=== PATIENT | male | born 1950 | race Hispanic/Latino ===

== ENCOUNTER 2017-10-20 11:14 | Observation (INO) | payer MEDICARE ==
[2017-10-20 11:58] LABS: #Eosinphils 0.1 thou/uL (0.0-0.7); #Monocytes 0.6 thou/uL (0.11-0.59); #Neutrophils 8.9 thou/uL (1.40-6.50); %Basophils 0.2 % (0.0-1.0); %Eosinophils 1.1 % (0.0-10.0); %Lymphocytes 9.1 % (21.0-51.0); %Monocytes 5.9 % (0.0-10.0); %Neutrophils 83.7 % (42.0-75.0); Hemoglobin 13.5 g/dL (14.0-18.0); Mean Corpuscular HGB CONC 32.8 g/dL (32.0-36.0); Mean Corpuscular Hemoglobin 28.5 pg (27.0-31.0); Mean Platelet Volume 8.9 fL (7.4-10.4); Platelet Count 167 thou/uL (130-400); RBC Distribution Width 12.7 % (11.5-14.5); Red Blood Cell (RBC) Count 4.74 mill/uL (4.70-6.10); White Blood Cell (WBC) Count 10.6 thou/uL (4.8-10.8)
[2017-10-20 12:18] LABS: ALT (SGPT) 22 U/L (8-55); AST (SGOT) 18 U/L (5-34); Albumin 4.1 g/dL (3.4-4.8); Alkaline Phosphatase 88 U/L (40-150); Anion Gap 14 mmol/L (10-20); BUN (Urea Nitrogen) 25 mg/dL (8.4-25.7); Bilirubin, Total 0.7 mg/dL (0.2-1.2); Calc. Creatinine Clearance 0 mL/min (70-130); Calcium 9.6 mg/dL (7.8-10.44); Carbon Dioxide 23 mmol/L (23-31); Chloride 105 mmol/L (98-107); Estimated GFR-MDRD 56; Globulin 2.7 g/dL (2.4-3.5); Glucose 377 mg/dL (80-115); Potassium 4.6 mmol/L (3.5-5.1); Protein, Total 6.8 g/dL (5.8-8.1); Sodium 137 mmol/L (136-145)
[2017-10-20 12:19] LABS: Bilirubin Negative (Negative); Blood, Urine Negative (Negative); Clarity CLEAR (Clear); Glucose, Urine (Dipstick) >=1000 mg/dL (Negative); Leukocyte Negative (Negative); Nitrite Negative (Negative); Protein, Urine (Dipstick) 100 mg/dL (Neg-Trace); Specific Gravity, Urine 1.029 (1.002-1.036); Urobilinogen 0.2 mg/dL (0.2-1.0); pH, Urine 5.5 (5.0-9.0)
[2017-10-20 12:22] LABS: Bacteria/HPF None Seen HPF (None Seen); Hyaline Casts/LPF 4-6 HYALINE CAST LPF (0-3 Hyaline); Pathc Cast-AUWi Flag 0.13 (0-2.49); RBC/HPF 0-3 HPF (0-3); Squamous Epithelial 0-3 HPF (0-3); WBC/HPF 0-3 HPF (0-3)
[2017-10-20 12:30] LABS: Amphetamine Not Detected (NotDetected); Barbiturates Screen Not Detected (NotDetected); Benzodiazepine Screen Not Detected (NotDetected); Cocaine Metabolite Screen Not Detected (NotDetected); Medtox Control Line Valid? VALID (VALID); Medtox Reader # READER 4; Methadone Not Detected (NotDetected); Methamphetamine Not Detected (NotDetected); Opiate Screen Not Detected (NotDetected); Oxycodone Screen Not Detected (NotDetected); Phencyclidine (PCP) Not Detected (NotDetected); THC/Cannabinoid Screen Not Detected (NotDetected); Tricyclic Screen Not Detected (NotDetected)
--- NOTE | 2017-10-20 12:54 | CT ---
CT BRAIN WITHOUT CONTRAST: Technique: Multiple tomograms were obtained through the head without IV enhancement. History: Headache. FINDINGS: Ventricles have normal size and position. No evidence of intracranial mass or hemorrhage. No evidence of acute infarct. No significant white matter abnormality identified. Sinuses and mastoids are clear . IMPRESSION: No acute finding. POS: [facility]
[2017-10-20 13:33] LABS: CKMB 3.5 ng/mL (0-6.6); Troponin I 0.012 ng/mL (< 0.028)
[2017-10-20] MEDS ORDERED: Aspirin 325 MG TAB ONE (15:19)
[2017-10-20] MEDS ORDERED: Ondansetron ODT 4 MG TAB SL PRN (16:28)
[2017-10-20] MEDS ORDERED: Ondansetron HCl/PF 4 MG/2 ML Vial IVP PRN ×2 (16:28→17:20)
[2017-10-20] MEDS ORDERED: Iopamidol 370 76% 100 ML VIAL ONE (16:31)
[2017-10-20] MEDS ORDERED: Clopidogrel Bisulfate 75 MG TAB PO SCH (17:00)
[2017-10-20] MEDS ORDERED: Loratadine 10 MG TAB PO PRN (17:20)
[2017-10-20] MEDS ORDERED: Acetaminophen 325 MG TAB PO PRN (17:20)
[2017-10-20] MEDS ORDERED: Calcium Carbonate 500 MG ChewTAB PO PRN (17:20)
[2017-10-20] MEDS ORDERED: hydrALAZINE 20 MG/ML VIAL SLOW IVP PRN (17:20)
[2017-10-20] MEDS ORDERED: HYDROcodone/Acetaminophen 5/325 mg Tablet PO PRN (17:20)
[2017-10-20] MEDS ORDERED: Dextrose 5% in Water 1,000 ML IV PRN (17:20)
[2017-10-20] MEDS ORDERED: Senokot 8.6 MG TAB PO PRN (17:20)
[2017-10-20] MEDS ORDERED: traMADol HCl 50 MG TAB PO PRN (17:20)
[2017-10-20] MEDS ORDERED: Mag-Al 1200 mg/1200 mg/30 ML UDCUP PO PRN (17:20)
[2017-10-20] MEDS ORDERED: Dextrose 50% Abboject 50 ML SYRINGE SLOW IVP PRN (17:20)
[2017-10-20] MEDS ORDERED: Bisacodyl 5 MG TAB PO PRN (17:20)
[2017-10-20] MEDS ORDERED: Diabetic Tussin 200 MG/10 ML UDCUP PO PRN (17:20)
[2017-10-20] MEDS ORDERED: HumaLOG 300 UNITS/3 ML VIAL SC PRN ×2 (17:20)
[2017-10-20] MEDS ORDERED: Labetalol HCl 100 MG/20 ML VIAL SLOW IVP PRN (17:20)
[2017-10-20] MEDS ORDERED: Nitroglycerin 0.4 MG TAB (25 Tab Bottle) SL PRN (17:20)
[2017-10-20] MEDS ORDERED: Benzonatate 100 MG CAP PO PRN (17:20)
--- NOTE | 2017-10-20 17:26 | HP ---
PRIMARY CARE PHYSICIAN: [facility]. CHIEF COMPLAINT: Headache, blurry vision, lightheadedness, and imbalance. HISTORY OF PRESENT ILLNESS: Mr. Palafox is a pleasant 67-year-old male with past medical histo ry of dyslipidemia, hypertension, diabetes mellitus, and diabetic neuropathy as well as coronary danny ry disease status post stenting in LAD in 2008, who presented to the emergency room with the above-me ntioned complaint. He was actually seen at the primary care physician's office today with these comp laints and was sent to the emergency room with concerns of stroke. History is mainly obtained by the chart review and discussion with the patient and his family. Language barrier is noted as the patie nt is only Chinese speaking. The patient presented to [facility] in [place] for complaints of dizziness and weakness since this morning. The family stated that he has not ate anything since morning. He also complained of neck p ain, headache in the back of the head, and blurred vision. Upon presentation to [facility], he was found to be hypotensive with noted blood pressure 86/55. His repeat blood pressure is 77/55. His ox ygen saturation was 94% on room air and blood sugar was 389. He was found to have unsteady gait and he was sent to [facility] for further evaluation. In the emergency room, upon presentation, his blood pressure was 127/71 with a heart rate of 84, his temperature is at 99.7. His CT scan of the brain was unremarkable. However, on physical examination , he was found to have ataxia with balance problems. For this reason, he is now being admitted to [facility] to rule out acute stroke. He continues to have these symptoms as of now. Denies any musc le weakness. He does report burning pain in both lower extremities. He also reports burning with ur ination for quite a while. He has recently been having some cough without any fevers. He denies any vomiting, nausea, abdominal pain, or diarrhea. He denies any chest pain, shortness of breath, ortho pnea, or PND. He reports compliance with his medications. He denies similar symptoms in the past. PAST MEDICAL HISTORY: 1. Diabetes mellitus. 2. History of kidney stones in 2006. 3. Coronary artery disease in 01/[address] [place] with stenting in LAD. 4. Diverticulitis, 04/2012. 5. Prostatitis, 04/2012. 6. Dyslipidemia. 7. Proteinuria. PAST SURGICAL HISTORY: Stenting of the LAD, 01/2009. FAMILY HISTORY: Father . His kids are alive. Mother is also with unknown history. He has 6 brothers who are relatively healthy. He denies any history of heart attack or stroke runn ing in his family. SOCIAL HISTORY: He is currently employed. He denies any drug, tobacco, or alcohol abuse. He is mar ried. ALLERGIES: No known medication allergies. MEDICATIONS: Include metformin 1000 mg b.i.d., Novolin 70/30 at 30 units subcu b.i.d., atorvastatin 80 mg daily, aspirin 325 mg daily, carvedilol 3.125 mg b.i.d., lisinopril/hydrochlorothiazide 20/12.5 mg daily, terazosin 1 capsule at bedtime, gabapentin 300 mg at bedtime, Januvia which the patient barreto s never picked up, Nasonex daily. REVIEW OF SYSTEMS: The following complete review of systems was negative, unless otherwise mentioned in the HPI or below: Constitutional: Weight loss or gain, ability to conduct usual activities. Skin: Rash, itching. Eyes: Double vision, pain. ENT/Mouth: Nose bleeding, neck stiffness, pain, tenderness. Cardiovascular: Palpitations, dyspnea on exertion, orthopnea. Respiratory: Shortness of breath, wheezing, cough, hemoptysis, fever or night sweats. Gastrointestinal: Poor appetite, abdominal pain, heartburn, nausea, vomiting, constipation, or diarr hea. Genitourinary: Urgency, frequency, dysuria, nocturia. Musculoskeletal: Pain, swelling. Neurologic/Psychiatric: Anxiety, depression. Allergy/Immunologic: Skin rash, bleeding tendency. PHYSICAL EXAMINATION: VITAL SIGNS: Upon presentation, blood pressure 127/71, pulse of 84, respirations 16, saturating 99% on room air, temperature 99.7. GENERAL: In no acute distress; awake, alert, and oriented x3. HEENT: He does have some redness to his face, but otherwise mucous membrane is moist and pink. No o ropharyngeal exudate or erythema. Head is normocephalic and atraumatic. Pupils are equal and reacti ve to light and accommodation. He does have some nystagmus on the left lateral gaze. NECK: Supple without any lymphadenopathy, JVD, or bruit. CHEST: Clear to auscultation without any wheezing, rales, or rhonchi. CARDIOVASCULAR: Rhythm is regular without any murmur, rubs, or gallops. ABDOMEN: Soft, nontender, and nondistended. He does have some suprapubic tenderness. EXTREMITIES: Free of any cyanosis, clubbing, or edema. NEUROLOGIC: Nonfocal except for the mild nystagmus as noticed above. Gait is not checked, but accor ding to the ER physician, he had significant ataxia. SKIN: Free of any rashes or bruises. PSYCHIATRIC: Normal affect. LABORATORY DATA: A 12-lead EKG by my review shows complete left bundle branch block with poor R-wave progression. Otherwise sinus rhythm at 82 beats per minute. CBC is unremarkable. Serum chemistry showed blood sugar of 377, otherwise unremarkable. His creatine kinase is mildly elevated at 231. C ardiac enzymes are unremarkable. Urinalysis showed glucosuria and proteinuria, but no bacteria or le ukocyte esterase, negative nitrites. Urine drug screen is unremarkable. CT scan of the brain by my review has no evidence to suggest acute hemorrhage or infarction. IMPRESSION AND PLAN: 1. Ataxia, blurred vision, as well as headache. All these symptoms are concerning for posterior cer ebellar circulation cerebrovascular accident. He will be admitted to the stroke floor under observat ion status and we will do the cerebrovascular accident workup including stroke team as well as Neurol ogy consultation. He will have MRI of the brain along with echocardiogram and CT angiogram of the va ck to rule out any carotid artery stenosis. He has multiple risk factors for the same. At this time , we will continue with his aspirin as well as statin and give him 1 dose of Plavix until further Earnest rology recommendations are available. 2. Hypotension. Likely due to multiple medications he takes at home. He does report some cough and URI-like symptoms recently. We will check his respiratory viral panel. He reports that he did get vaccinated this year. We will provide him gentle IV fluid hydration. Use antihypertensives except f or beta-blockers with parameters. 3. Dysuria. The patient's urinalysis is not consistent with urinary tract infection. Most likely, he has chronic prostatitis. Continue with his Hytrin for now and start him on gentle IV fluid hydrat ion. At this time, we will treat him empirically with ciprofloxacin 500 mg p.o. b.i.d. He will be g dari Urology followup as an outpatient. 4. Diabetes mellitus. The patient has not been taking his Januvia. At this time, we will resume hi s insulin once the dose was confirmed and continue him on insulin sliding scale with frequent Accu- eks. 5. History of coronary artery disease. At this time, he does not appear to be having any cardiac is sues. We will check his echocardiogram with relation to his possible cerebrovascular accident. Cont inue aspirin and statin as well as beta-mary beth. Restart JIN inhibitors if his blood pressure improv es. 6. Hypertension, currently well controlled and on the lower side actually. We will use his antihype rtensives with caution. 7. History of prostatitis as above. 8. Code status: FULL CODE. Discussed with the patient. DISPOSITION: Mr. Palafox is being admitted to the stroke floor under observation status for CVA rule ou t. Further management will depend upon his clinical course.
[2017-10-20 18:33] VITALS: BMI 30.8
[2017-10-20] MEDS: Insulin NPH/Reg Insulin Hm 300 UNITS/3 ML VIAL SC SCH (19:13)
[2017-10-20] MEDS: Sodium Chloride 0.9% 1,000 ML IV SCH (19:13)
[2017-10-20] MEDS ORDERED: Famotidine/PF 20 mg/2ml Vial SLOW IVP SCH (21:00)
[2017-10-20] MEDS ORDERED: Terazosin HCl 1 MG CAP PO SCH (21:00)
[2017-10-20] MEDS ORDERED: Atorvastatin Calcium 40 MG TAB PO SCH (21:00)
[2017-10-20] MEDS: Gabapentin 300 MG CAP PO SCH ×2 (21:02→21:10)
[2017-10-20] MEDS: Ciprofloxacin 500 MG TAB PO SCH (21:02)
--- NOTE | 2017-10-20 21:43 | CT ---
CTA NECK 10/20/17 CLINICAL HISTORY: Blurred vision. 3D volume rendering performed. FINDINGS: There is scattered mild vascular calcification. There is no high grade focal stenosis involving of ei ther of the visualized common or internal carotid artery. The aortic arch is patent. The imaged aspec ts of each subclavian artery reveal no high grade focal stenosis or occlusion. There is no significan t stenosis of the bilateral vertebral arteries. The imaged vascular artery is patent. Incidental note of coronary artery calcium. There are bilateral pulmonary parenchymal opacities partially visualized within each upper hemithorax. IMPRESSION: Mild scattered atherosclerotic vascular disease without high grade focal stenosis or occlusion of the major arterial system of the neck. POS: [facility]
[2017-10-21 05:54] LABS: #Eosinphils 0.2 thou/uL (0.0-0.7); #Lymphocytes 1.9 thou/uL (1.20-3.40); #Monocytes 0.6 thou/uL (0.11-0.59); #Neutrophils 5.7 thou/uL (1.40-6.50); %Basophils 0.1 % (0.0-1.0); %Eosinophils 2.5 % (0.0-10.0); %Lymphocytes 22.8 % (21.0-51.0); %Neutrophils 67.6 % (42.0-75.0); Hemoglobin 13.8 g/dL (14.0-18.0); Mean Corpuscular HGB CONC 32.1 g/dL (32.0-36.0); Mean Corpuscular Hemoglobin 28.2 pg (27.0-31.0); Mean Corpuscular Volume 87.6 fl (80.0-94.0); Mean Platelet Volume 8.8 fL (7.4-10.4); Platelet Count 166 thou/uL (130-400); RBC Distribution Width 12.7 % (11.5-14.5); Red Blood Cell (RBC) Count 4.91 mill/uL (4.70-6.10); White Blood Cell (WBC) Count 8.5 thou/uL (4.8-10.8)
[2017-10-21] MEDS: Ciprofloxacin 500 MG TAB PO SCH (06:12)
[2017-10-21 06:18] LABS: Anion Gap 13 mmol/L (10-20); BUN (Urea Nitrogen) 23 mg/dL (8.4-25.7); Calc. Creatinine Clearance 94 mL/min (70-130); Calcium 9.5 mg/dL (7.8-10.44); Carbon Dioxide 23 mmol/L (23-31); Cardiac Risk 5.4 (Less than 4.5); Chloride 107 mmol/L (98-107); Estimated GFR-MDRD 80; Glucose 140 mg/dL (80-115); Potassium 4.4 mmol/L (3.5-5.1); Sodium 139 mmol/L (136-145)
[2017-10-21] MEDS ORDERED: Aspirin 325 mg Enteric Coated Tablet PO SCH (09:00)
[2017-10-21] MEDS ORDERED: Enoxaparin Sodium 40 MG/0.4 ML SYRINGE SC SCH (09:00)
[2017-10-21] MEDS ORDERED: Ezetimibe 10 MG TAB PO SCH (09:00)
[2017-10-21] MEDS ORDERED: FLU VACC TS2017-18 (>65YR) 0.5 ML SYRINGE IM ONE (09:00)
[2017-10-21] MEDS ORDERED: Famotidine 20 MG TAB PO SCH (09:00)
[2017-10-21] MEDS ORDERED: Prevnar 13-Val Conj/PF 0.5 ML SYRINGE IM ONE (09:00)
--- NOTE | 2017-10-21 09:23 | MRI ---
MRI OF THE BRAIN WITHOUT AND WITH CONTRAST: Date: 10/21/17 COMPARISON: None. HISTORY: Headache and TIA. TECHNIQUE: Multiplanar, multisequence MR images were obtained of the brain without and with IV contrast. FINDINGS: The brain demonstrates normal signal intensity on all obtained sequences. No restricted diffusion or abnormal enhancement are seen on this examination. There is no evidence of hydrocephalus, intracranial hemorrhage, or extra-axial fluid collection. The expected flow-voids are present. The corpus callosum, pituitary, and craniocervical junction are unre markable. IMPRESSION: No significant intracranial abnormality. POS: [facility]
[2017-10-21] MEDS: Sodium Chloride 0.9% 1,000 ML IV SCH (09:29)
[2017-10-21] MEDS: Insulin NPH/Reg Insulin Hm 300 UNITS/3 ML VIAL SC SCH ×2 (09:30→12:12)
[2017-10-21] MEDS: Gabapentin 300 MG CAP PO SCH (09:30)
[2017-10-21 11:54] VITALS: BP 132/76; TEMP 97.8
--- NOTE | 2017-10-21 12:34 | CON ---
DATE OF CONSULTATION: 10/21/2017 CHIEF COMPLAINT: Headache and balance problems. HISTORY OF PRESENT ILLNESS: History was obtained from the patient using an firing pin gauger and also from the chart. The patient is a very pleasant 67-year-old man with history of sudden ons et of headache and difficulty with balance, which brought him to the hospital. He felt dizzy. He fe lt weak all over the body and he was then doing well and his headache was mainly in the back of his h ead. He never had a headache like this in the past and he was brought to the hospital. At [facility], I believe, he was found to be hypotensive with a blood pressure of 86/55 and blood sugar s of 389 and he had unsteady gait and he was sent to this hospital [facility] for further evaluati on. The patient states that he is back to normal at this time. He never had a stroke in the past. He did not report any weakness, numbness, double vision, or any other form of visual symptoms. PREVIOUS MEDICAL HISTORY: He has diabetes, renal stones in 2006, coronary artery disease with a sten t in left anterior descending artery, diverticulitis, prostatitis, dyslipidemia, and proteinuria. PREVIOUS SURGICAL HISTORY: Stent placement. FAMILY HISTORY: The patient reports his mother had stroke and father as well. No other family history of stroke. SOCIAL HISTORY: He does not smoke or drink. He is . ALLERGIES: No known drug allergies. MEDICATIONS: His medication list was noted. He is on metformin, Novolin, atorvastatin, aspirin, car vedilol, lisinopril/hydrochlorothiazide combination, terazosin, gabapentin, and Januvia. REVIEW OF SYSTEMS: PULMONARY: Normal. CARDIAC: No palpitations or chest pain. SKIN: No rash or itching. EYES: No vision problems such as double vision or loss of vision. MUSCULOSKELETAL: Feeling of weakness. NEUROLOGICAL: Dizziness and headache. LABORATORY RESULTS: His white count is 8.5, hemoglobin 13.8, hematocrit 43.0, platelets 166. His so dium 139, potassium 4.4, chloride 107, bicarbonate 23, BUN 23, creatinine 0.94, glucose 140. I have reviewed his triglycerides, which were elevated at 185, cholesterol 211, LDL cholesterol 135, HDL 39. His MRI of the brain did not show any intracranial abnormality and no evidence of acute stroke on M RI. His CT angiography showed mild scattered atherosclerotic vascular disease without high grade foc al stenosis or occlusion of the major arterial system of the neck. PHYSICAL EXAMINATION: VITAL SIGNS: Blood pressure was 123/65, pulse 79, temperature 97.8, and respiration rate 16. GENERAL APPEARANCE: Well-built and well-nourished man, who is comfortable in his bed. CHEST: Clear vesicular breathing bilaterally. CARDIOVASCULAR: S1 and S2 heard. No murmurs. ABDOMEN: Soft, nontender. No organomegaly noted. NEUROLOGIC: Higher intellectual functions; normal orientation to time, place and person; and appropr iate with his language and conversation. Cranial nerves: Cranial nerves II-XII were normal. Pau l fundus examination. Pupils were reactive to light and equal at 2 mm bilaterally. Normal sensation of face bilaterally. Tongue midline. No atrophy noted. Normal elevation of palate bilaterally. H e had normal sensation to touch bilaterally. Normal hearing to finger rub bilaterally. Motor examin ation: Bulk normal, tone normal. Strength 5/5 in iliopsoas, hamstrings, quadriceps, ankle dorsiflex ion, plantar flexion, deltoid, biceps, triceps, wrist extension/flexion, finger extension and flexion bilaterally. Sensory examination: Normal to touch, pinprick, proprioception, vibration, and temper ature bilaterally. Cerebellar examination: His fosjqq-cf-jftt and ndcx-sb-hrzu were normal. Gait w as not tested. IMPRESSION: The patient was admitted with symptoms of dizziness and feeling generally weak and durin g his history, he did not report to me that he had any type of weakness or numbness or incoordination . His MRI scan is negative for any acute stroke. CT angiography does not show any vascular stenosis . He is still pending echocardiogram of his heart. His neurological examination is normal and he is on aspirin 325 mg per day for stroke prophylaxis. At this time, I do think this event is most likel y correlated with hypotension in association with hyperglycemia and there does not seem to be any kye dence for acute stroke. RECOMMENDATIONS: 1. The patient can be discharged from neurological standpoint. He has clearance from physical thera py and he is able to ambulate. 2. Please continue aspirin for stroke prophylaxis due to his primary risk factors of diabetes, hyper tension, coronary artery disease, and hypercholesterolemia. 3. He can follow up with his general physicians. Please call if you have any further questions.
--- NOTE | 2017-10-21 20:10 | DIS ---
DATE OF ADMISSION: 10/20/2017 DATE OF DISCHARGE: 10/21/2017 CONDITION AT THE TIME OF DISCHARGE: Stable and improved. DISCHARGE DIAGNOSES: 1. Dizziness, hypotension, likely due to medication overdose. 2. CVA ruled out. SECONDARY DISCHARGE DIAGNOSES: 1. Diabetes mellitus type 2. 2. Coronary artery disease. 3. History of renal stones. 4. Prostatitis, chronic. 5. Dyslipidemia. CONSULTATIONS: Include Neurology, Dr. Jones. PROCEDURES DONE IN THE HOSPITAL: Include, 1. MRI of the brain which was unremarkable. There is no evidence of acute hemorrhage, stroke or mas ses. 2. CT angio of the neck, which is unremarkable. There is no stenosis of the major arterial system o f the neck. 3. Transthoracic echocardiogram, the results are pending at this time. DISCHARGE MEDICATIONS: New medications, lisinopril 2.5 mg p.o. daily, ciprofloxacin 500 mg p.o. b.i. d. for 5 more days, fish oil 1000 mg daily. DISCONTINUED MEDICATION: Prinzide. Resume following home medications: Januvia 100 mg p.o. daily, Nasonex daily, gabapentin 300 mg at be dtime, terazosin 2 mg at bedtime, Coreg 3.125 mg p.o. b.i.d., aspirin 325 mg daily, atorvastatin 80 m g daily, metformin 1000 mg p.o. b.i.d., Novolin 30 units subcu b.i.d. PRIMARY CARE PHYSICIAN: [facility]. HISTORY OF PRESENTING ILLNESS: Mr. Palafox is a pleasant 67-year-old male with past medical hi story of diabetes, coronary artery disease as well as dyslipidemia and hypertension, who presented to the emergency room with complaints of headache, blurry vision, lightheadedness and imbalance. He wa s seen at the primary care physician's office earlier and was found to be hypotensive and was sent to the ER. Please see admission history and physical for further details. On presentation, his blood pressure was 127/[address] scan of the brain done in the ER was unremarkable. He was admitted as a CVA rule out. HOSPITAL COURSE: The patient underwent the stroke workup including transthoracic echocardiogram, CT angio of the neck as well as MRI of the brain. Echocardiogram is pending at this time, but he has no evidence of stroke on MRI of the brain. He was seen by neurologist, Dr. Awilda Jones and she agre ed that the symptoms are not because of the stroke, but most likely secondary to low blood pressure. The patient ambulated fine with the physical therapist and had no reoccurrence of his symptoms. His blood pressure medications were held and his blood pressure remained in the 117 to 132 with diastoli c in the 70s range. He was seen and examined prior to discharge and is hemodynamically stable. He is instructed to follo w up with his primary care physician for the results of the echocardiogram. Medication adjustments w ere made. He was taken off of his Prinzide and started just on very low dose of lisinopril given his history of diabetes and coronary artery disease. He will continue the Coreg at previous dose, but b oth the medications are to be held if his blood pressures are below certain level. The patient is in structed with regards to that. He was seen and examined prior to discharge. PHYSICAL EXAMINATION: Include: VITAL SIGNS: Temperature 97.8, blood pressure 132/76, respirations 18, heart rate 79, saturating 95% on room air in no acute distress, awake, alert, oriented x3. CHEST: Clear to auscultation. Rate and rhythm is regular. NEUROLOGIC: Nonfocal. LABORATORY: CBC unremarkable. Serum chemistries are remarkable for blood sugar 140. Cardiac enzyme s negative. His triglycerides are elevated at 185, total cholesterol at 211 with LDL of 135. He was started on fish oil. He is instructed strictly about dietary discretion and exercise. He did have some complaints of dysuria but his urinalysis showed proteinuria and glucosuria without a ny WBCs or bacteria. He has a history of prostatitis and most likely he is having chronic prostatiti s symptoms. Urine was sent to culture, but the results are pending at this time. He was treated emp irically by ciprofloxacin, which he will continue in the outpatient setting. He will benefit from ou tpatient urological followup. He can be referred to Urology by his primary care physician. At this time, he will be discharged back under the care of his PCP with close monitoring of blood pre ssure in the outpatient setting.
[2017-10-21] MEDS ORDERED: Fish Oil 1,000 MG CAP PO SCH (21:00)
== END 2017-10-21 14:00 | disposition home or self-care (01) ==
LOC: ERS 11:14 → 2SE 15:42
PROVIDERS: ADMIT Internal Medicine; ATTEND Internal Medicine
DX: I95.9 Hypotension, unspecified (principal); I25.10 Atherosclerotic heart disease of native coronary artery without angina pectoris; N41.1 Chronic prostatitis; E78.5 Hyperlipidemia, unspecified; I10 Essential (primary) hypertension; E11.40 Type 2 diabetes mellitus with diabetic neuropathy, unspecified; I25.2 Old myocardial infarction; R30.0 Dysuria; Z79.4 Long term (current) use of insulin; Z79.82 Long term (current) use of aspirin; Z79.51 Long term (current) use of inhaled steroids; Z79.899 Other long term (current) drug therapy; Z95.818 Presence of other cardiac implants and grafts; Z87.442 Personal history of urinary calculi
CPT/HCPCS: 70450; 70498; 70553; 80048; 80053; 80061; 80306; 82550; 82553; 82962 ×2; 84484; 85025 ×2; 87631; 93005; 93306; 96361 ×2; 96372; 96374; 97139 ×3; 97530; 99285; G0378; G8978; G8979; G8980; G8987; G8988; G8989; 36415; 36416; 81003; 81015; G8996-GN-CH; G8997-GN-CH; J1650; S0028

== ENCOUNTER 2017-12-24 23:11 | Inpatient (IN) | payer MEDICARE ==
[2017-12-25] MEDS ORDERED: Azithromycin 250 MG TAB ONE (00:10)
[2017-12-25] MEDS ORDERED: Meropenem 1 GM in Sodium Chloride 0.9% 100 ML IVPB SCH (01:00)
[2017-12-25 01:19] LABS: Lactic Acid 0.9 mmol/L (0.5-2.2)
[2017-12-25] MEDS ORDERED: Ondansetron HCl/PF 4 MG/2 ML Vial IVP PRN (04:58)
[2017-12-25] MEDS ORDERED: Ondansetron ODT 4 MG TAB SL PRN (04:58)
[2017-12-25] MEDS ORDERED: HYDROcodone/Acetaminophen 5/325 mg Tablet PO PRN ×2 (04:58)
[2017-12-25] MEDS ORDERED: Acetaminophen 325 MG TAB PO PRN (04:58)
[2017-12-25] MEDS: Sodium Chloride 0.9% 1,000 ML IV SCH ×2 (05:26→17:29)
[2017-12-25 05:42] VITALS: BMI 34.0
[2017-12-25] MEDS ORDERED: Vancomycin HCl 1.5 GM in Sodium Chloride 0.9% 250 ML 300 ML IVPB SCH (06:00)
--- NOTE | 2017-12-25 08:23 | CON ---
DATE OF CONSULTATION: 12/25/2017 Seventy minutes of time was spent performing consultation; of that time greater than 50% was spent wi th the patient and/or in the patient's unit. REASON FOR CONSULTATION: CCU protocol. HISTORY OF PRESENT ILLNESS: Information is obtained by speaking with the patient and by reviewing th e emergency room note in the chart. History and physical from the Hospitalist group was not available for review at time of this dictatio n. The patient is a 67-year-old male who presented to the [facility] Room complaining o f cough, shortness of breath, fever, dysuria, urinary frequency and bruises on his knees falling from a horse two days ago. He was initially slightly hypotensive at that facility, maximum temperature t hat I can see was measured was 99.9. He was admitted for treatment of urinary tract infection. He w as supposed to be in IMCU, but I believe they do not have any beds and he was therefore put in the IC U on overflow status. He is not having difficulty with blood pressure or mentation while in the CCU. PAST MEDICAL HISTORY: 1. Diabetes mellitus. 2. Nephrolithiasis. 3. Coronary artery disease. 4. Myocardial infarction. 5. Diverticulitis. 6. Prostatitis. 7. Hyperlipidemia. 8. Proteinuria. PAST SURGICAL HISTORY: Stenting of the LAD in 2008. FAMILY MEDICAL HISTORY: Remarkable for coronary artery disease. SOCIAL HISTORY: Nonsmoker, does not consume alcohol, does not use illicit drugs. ALLERGIES: None. MEDICATIONS: Prior to admission, Januvia 100 mg daily, gabapentin 100 mg 3 times daily, lisinopril/h ydrochlorothiazide 20/12.5 mg once daily, carvedilol 3.125 mg b.i.d., aspirin 325 mg daily, atorvasta tin 80 mg daily, Novolin 70/30 insulin 30 units twice daily, metformin 1000 mg twice daily. REVIEW OF SYSTEMS: Twelve point review of systems otherwise negative. PHYSICAL EXAMINATION: VITAL SIGNS: Temperature 97.7, pulse 68, blood pressure 130/71, O2 sat 100% on room air. HEENT: Unremarkable. NECK: Without adenopathy, JVD, or bruits. LUNGS: Clear without wheezing or rhonchi. CARDIAC: S1, S2 regular, without murmur. ABDOMEN: Soft, nontender, nondistended. EXTREMITIES: He has a bruise over his left knee. No cyanosis, no edema, no obvious skin lesions oth erwise. LABORATORY DATA: White blood cell count 10.2, hematocrit 39, platelet count 123. Sodium 135, potass ium 4.4, chloride 101, CO2 is 21, BUN 18, creatinine 1.1, glucose 302. Urinalysis showed 21-50 white blood cells. Chest x-ray shows chronically elevated right hemidiaphragm. The abdominal pelvis CT s can interpretation is pending. ASSESSMENT: 1. Urosepsis. 2. Coronary artery disease. 3. Status post fall. PLAN: This patient can be transferred out to the medical unit. He does not have any signs of shock at this time. Continue antibiotic therapy. There are no obvious pulmonary concerns as the right momo phragmatic elevation is old.
[2017-12-25] MEDS: Heparin 5,000 UNITS/ML VIAL SC SCH ×6 (09:06→20:29)
[2017-12-25] MEDS: Famotidine/PF 20 mg/2ml Vial SLOW IVP SCH ×2 (09:06→20:30)
[2017-12-25] MEDS: Meropenem 1 GM in Syringe 20 ML SLOW IVP SCH ×2 (09:12→18:25)
[2017-12-25] MEDS ORDERED: Dextrose 50% Abboject 50 ML SYRINGE SLOW IVP PRN (09:24)
[2017-12-25] MEDS: Albuterol Sulfate 1.25 MG/3 ML NEB NEB SCH ×4 (09:24→18:49)
[2017-12-25] MEDS ORDERED: Dextrose 5% in Water 1,000 ML IV PRN (09:24)
[2017-12-25] MEDS ORDERED: Tamsulosin HCl 0.4 MG CAP PO SCH (09:27)
[2017-12-25] MEDS ORDERED: Oxybutynin 5 MG TAB PO SCH (09:28)
[2017-12-25 09:44] LABS: Anion Gap 11 mmol/L (10-20); BUN (Urea Nitrogen) 15 mg/dL (8.4-25.7); Calc. Creatinine Clearance 109 mL/min (70-130); Calcium 8.6 mg/dL (7.8-10.44); Carbon Dioxide 24 mmol/L (23-31); Chloride 106 mmol/L (98-107); Estimated GFR-MDRD Greater than 90; Glucose 239 mg/dL (80-115); Potassium 4.5 mmol/L (3.5-5.1); Sodium 136 mmol/L (136-145)
[2017-12-25 09:55] LABS: Band 7 % (5-11); Lymphocytes 9 % (21-51); MDiff Complete? YES; Mean Corpuscular HGB CONC 32.8 g/dL (32.0-36.0); Mean Corpuscular Hemoglobin 28.9 pg (27.0-31.0); Mean Corpuscular Volume 88.1 fl (80.0-94.0); Mean Platelet Volume 9.5 fL (7.4-10.4); Monocytes 2 % (0-10); Neutrophil 82 % (42-75); PLT Morphology Comment Appears Decreased; Platelet Count 119 thou/uL (130-400); RBC Distribution Width 13.3 % (11.5-14.5); RBC Morphology Normal; Red Blood Cell (RBC) Count 4.16 mill/uL (4.70-6.10); White Blood Cell (WBC) Count 18.8 thou/uL (4.8-10.8)
[2017-12-25] MEDS: HumaLOG 300 UNITS/3 ML VIAL SC PRN ×3 (11:50→20:29)
--- NOTE | 2017-12-25 12:30 | HP ---
REASON FOR ADMISSION: Sepsis, possible urinary tract infection. HISTORY OF PRESENT ILLNESS: The patient gives history of feeling cold and having urgency of urination. He also had frequency of urination. All the above from Tuesday. 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 In the process, the patient had hurt his left lower extremity with multiple abrasions. He also mentions that the horse bit him on his right upper extremity. The patient initially went to [facility], [place], where he was found to have had fever of 102 and had complained of cough, weakness, and fever. No altered expectoration. No complaints of chest pain or palpitation. He has shortness of breath at present and has wheezing. His initial temperature was also 105.8 at 8:21 p.m. yesterday evening. The patient mentions that he feels that the phlegm is kind of stuck up in his throat. No complaints of any particular weakness in any of the extremities. He is moving all of them. PAST MEDICAL AND SURGICAL HISTORY: 1. History of coronary artery disease with prior STEMI and stenting done to LAD in 01/2009. 2. History of nephrolithiasis in 2006. 3. Diabetes mellitus type 2. 4. History of diverticulitis in 04/2012 5. History of prostatitis,. 6. Dyslipidemia. PERSONAL HISTORY: Does not abuse alcohol or drugs. No history of smoking. Lives with his . FAMILY HISTORY: Mother at the age of 80 years from old age. Father at the age of 26 years and has had some kind of infection of the occiput of his scalp area, which spread. He does not recall the exact diagnosis. CURRENT MEDICATIONS: Please note patient does not recall all his medications, but from his last admission here in October, which he states the medications have not been changed. He is on aspirin 325 mg daily, atorvastatin 80 mg p.o. at bedtime, Coreg 3.125 mg twice daily, fish oil 1000 mg p.o. at bedtime, gabapentin 300 mg p.o. at bedtime, NPH 70/30, 30 units subcu twice daily, lisinopril 2.5 mg daily, metformin 1000 mg twice daily, Januvia 100 mg daily, and terazosin 2 mg p.o. at bedtime. ALLERGIES: No known drug allergies. REVIEW OF SYSTEMS: The following complete review of systems was negative, unless otherwise mentioned in the HPI or below: Constitutional: Weight loss or gain, ability to conduct usual activities. Skin: Rash, itching. Eyes: Double vision, pain. ENT/Mouth: Nose bleeding, neck stiffness, pain, tenderness. Cardiovascular: Palpitations, dyspnea on exertion, orthopnea. Respiratory: Shortness of breath, wheezing, cough, hemoptysis, fever or night sweats. Gastrointestinal: Poor appetite, abdominal pain, heartburn, nausea, vomiting, constipation, or diarrhea. Genitourinary: Urgency, frequency, dysuria, nocturia. Musculoskeletal: Pain, swelling. Neurologic/Psychiatric: Anxiety, depression. Allergy/Immunologic: Skin rash, bleeding tendency. PHYSICAL EXAMINATION: GENERAL: The patient is a 67-year-old male, who is currently not in any acute distress. VITAL SIGNS: Blood pressure 130/64, pulse 84 per minute, respiratory rate 26 per minute, temperature initially was [address] [facility], [place] at 8:00 p.m. on arrival here was 99 degrees, saturating 100% on 2 liters nasal cannula. NECK: Supple, no elevated JVD. HEENT: Extraocular muscles intact. Pupils reacting to light. Oral cavity, mucous membranes are dry. No exudates or congestion. CARDIOVASCULAR: S1 and S2 heard. Regular rhythm. RESPIRATORY: Air entry 1+ bilaterally. Scattered wheezes plus bilaterally. ABDOMEN: Soft, bowel sounds. He has mild tenderness in the left lower quadrant , but no rigidity or guarding. Bowel sounds are heard. EXTREMITIES: No peripheral edema or calf tenderness. Has multiple abrasions over the left leg. The patient has small ecchymosis on the right arm on the medial aspect, which he says where the horse bit but there is no skin break. VASCULAR: Peripheral pulses are 2+ bilateral, no ischemic ulcerations or gangrene. CENTRAL NERVOUS SYSTEM: No gross focal deficits seen. Patient is alert, awake , and oriented well. PSYCHIATRIC: The patient's mood is euthymic. No hallucinations or delusions. LABORATORY AND X-RAY FINDINGS: Chest x-ray done shows likely chronic elevation of right hemidiaphragm, no acute infiltrate. UA shows moderate blood, 15 mg per deciliter of ketones, 21-50 WBCs, rare few bacteria. Leukocyte esterase and nitrite are negative. BNP is 232. First set of cardiac enzymes are negative. Serum bicarbonate was 21, BUN 18, creatinine 1.1. Serum glucose 302. Lactic acid is 1.8. Liver enzymes within normal limits. White count of 10 as jumped up to 18 this morning. H&H 12 and 36, platelet count 119 with 90% neutrophils. CLINICAL IMPRESSION AND PLAN: The patient will be admitted to telemetry. He was initially placed in IMCU and will be shortly downgraded to telemetry. He has been initiated on meropenem and will continue the same for now. He is on normal saline at 100 mL per hour. Sorto cultures have been obtained including blood and urine from the ER. We will follow up on that. His CT abdomen and pelvis, per unofficial report there is no acute abnormality. Due to his increased frequency of urination and urgency, he will be placed on Flomax and Ditropan for now. We will also place him on phenazopyridine for the same and will check postvoid residual. We will continue him on aspirin, albuterol nebulizer, Pepcid twice daily for now. Dr. Pizano for Pulmonology and Critical Care has evaluated the patient already. Code status is FULL. We will continue to closely monitor him on telemetry. [facility]
[2017-12-25] MEDS ORDERED: ISOVUE-370 76%-LOCM 1 ML ONE (13:01)
[2017-12-25] MEDS: Phenazopyridine HCl 97.5 MG TABLET PO SCH ×2 (13:30→17:42)
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
[2017-12-25] MEDS: Ibuprofen 200 MG TAB PO PRN (17:42)
[2017-12-26] MEDS: Ibuprofen 200 MG TAB PO PRN (01:51)
[2017-12-26] MEDS: Meropenem 1 GM in Syringe 20 ML SLOW IVP SCH ×3 (02:08→18:03)
[2017-12-26] MEDS: Sodium Chloride 0.9% 1,000 ML IV SCH (02:17)
[2017-12-26 04:56] LABS: Anion Gap 9 mmol/L (10-20); BUN (Urea Nitrogen) 14 mg/dL (8.4-25.7); Calc. Creatinine Clearance 114 mL/min (70-130); Calcium 8.5 mg/dL (7.8-10.44); Carbon Dioxide 24 mmol/L (23-31); Chloride 105 mmol/L (98-107); Estimated GFR-MDRD Greater than 90; Glucose 185 mg/dL (80-115); Potassium 3.6 mmol/L (3.5-5.1); Sodium 134 mmol/L (136-145)
[2017-12-26 05:15] LABS: #Eosinphils 0.1 thou/uL (0.0-0.7); #Lymphocytes 0.7 thou/uL (1.20-3.40); #Monocytes 1.2 thou/uL (0.11-0.59); #Neutrophils 12.1 thou/uL (1.40-6.50); %Basophils 0.3 % (0.0-1.0); %Eosinophils 0.6 % (0.0-10.0); %Lymphocytes 5.1 % (21.0-51.0); %Monocytes 8.6 % (0.0-10.0); %Neutrophils 85.5 % (42.0-75.0); Hemoglobin 10.7 g/dL (14.0-18.0); Mean Corpuscular HGB CONC 33.2 g/dL (32.0-36.0); Mean Corpuscular Volume 87.4 fl (80.0-94.0); Mean Platelet Volume 8.7 fL (7.4-10.4); Platelet Count 106 thou/uL (130-400); RBC Distribution Width 13.1 % (11.5-14.5); Red Blood Cell (RBC) Count 3.69 mill/uL (4.70-6.10); White Blood Cell (WBC) Count 14.2 thou/uL (4.8-10.8)
[2017-12-26] MEDS: Albuterol Sulfate 1.25 MG/3 ML NEB NEB SCH ×4 (07:05→20:02)
[2017-12-26] MEDS: Oxybutynin 5 MG TAB PO SCH (07:42)
[2017-12-26] MEDS: Phenazopyridine HCl 97.5 MG TABLET PO SCH ×3 (07:42→18:03)
[2017-12-26] MEDS: Tamsulosin HCl 0.4 MG CAP PO SCH (07:43)
[2017-12-26] MEDS: Famotidine/PF 20 mg/2ml Vial SLOW IVP SCH (07:44)
[2017-12-26] MEDS: Heparin 5,000 UNITS/ML VIAL SC SCH ×6 (07:44→21:21)
--- NOTE | 2017-12-26 07:53 | PRG ---
DATE OF SERVICE: 12/26/2017 He is feeling well, has no complaints. PHYSICAL EXAMINATION: VITAL SIGNS: His temperature is 99.2, pulse 73, blood pressure 101/71. Total intake for 24 hours 20 81, output 1450. HEENT: Unremarkable. NECK: No JVD. CHEST: Clear without wheezing. CARDIAC: S1 and S2 regular. ABDOMEN: Soft. EXTREMITIES: Trace edema. LABORATORY DATA: White blood cell count 14, hematocrit 32, platelet count 106. Sodium 134, potassiu m 3.6, chloride 105, CO2 24, BUN 14, creatinine 0.8, glucose 185. ASSESSMENT: 1. Urosepsis. 2. Coronary artery disease. 3. Status post fall. PLAN: He is continuing antimicrobial therapy. He has been transferred out to the telemetry unit, no active pulmonary problems. I will sign off the case. Please recall if further assistance needed.
[2017-12-26] MEDS: HumaLOG 300 UNITS/3 ML VIAL SC PRN ×3 (10:57→21:26)
--- NOTE | 2017-12-26 12:37 | PDOC.PN ---
- Subjective Encounter Start Date: 12/26/17 Encounter Start Time: 07:50 Subjective: no chest pain or palp -: feels better, no sob -: no abd pain or diarrhea - Objective Resuscitation Status: Resuscitation Status FULL:Full Resuscitation MAR Reviewed: Yes Vital Signs & Weight: Vital Signs (12 hours) Temp Pulse Resp Pulse Ox 12/26/17 10:53 98.3 F 12/26/17 10:40 77 19 95 12/26/17 08:00 98.2 F 76 18 95 12/26/17 07:08 98 12/26/17 07:05 76 18 99 12/26/17 07:00 98.2 F 12/26/17 02:00 99.2 F Weight Admit Weight 204 lb 2.369 oz Most Recent Monitor Data Heart Rate from ECG 85 NIBP 132/61 NIBP BP-Mean 100 Respiration from ECG 19 SpO2 95 I&O: 12/25/17 12/26/17 12/27/17 06:59 06:59 06:59 Intake Total 200 2081 390 Output Total 200 1450 250 Balance 0 631 140 Result Diagrams: 12/26/17 04:20 12/26/17 04:20 Additional Labs: Accuchecks 12/26/17 12/26/17 12/25/17 10:57 06:25 20:28 POC Glucose 309 H 169 H 262 H 12/25/17 16:13 POC Glucose 279 H Phys Exam - Physical Examination HEENT: PERRLA, moist MMs Neck: no JVD, supple Respiratory: no wheezing, no rales Cardiovascular: RRR, no significant murmur Gastrointestinal: soft, non-tender, no distention, positive bowel sounds Musculoskeletal: no edema, pulses present Neurological: non-focal, moves all 4 limbs Psychiatric: normal affect, A&O x 3 Dx/Plan (1) Sepsis Code(s): A41.9 - SEPSIS, UNSPECIFIED ORGANISM Status: Acute Qualifiers: Sepsis type: sepsis due to unspecified organism Qualified Code(s): A41.9 - Sepsis, unspecified organism (2) UTI (urinary tract infection) Status: Acute Qualifiers: Urinary tract infection type: acute cystitis Hematuria presence: without hematuria Qualified Code(s): N30.00 - Acute cystitis without hematuria (3) DM type 2 (diabetes mellitus, type 2) Status: Chronic Qualifiers: Diabetes mellitus lead consultant insulin use: without lead consultant use Diabetes mellitus complication status: with unspecified complications Qualified Code(s) : E11.8 - Type 2 diabetes mellitus with unspecified complications (4) Dyslipidemia Code(s): E78.5 - HYPERLIPIDEMIA, UNSPECIFIED Status: Chronic (5) CAD (coronary artery disease) Code(s): I25.10 - ATHSCL HEART DISEASE OF [place] CORONARY ARTERY W/O ANG PCTRS Status: Chronic Qualifiers: Coronary Disease-Associated Artery/Lesion type: [place] artery [place] vs. transplanted heart: [place] heart Associated angina: without angina Qualified Code(s): I25.10 - Atherosclerotic heart disease of [place] coronary artery without angina pectoris (6) Chronic anemia Code(s): D64.9 - ANEMIA, UNSPECIFIED Status: Chronic - Plan on meropenem -: flomax, ditropan and azo -: urine cs is growing ecoli but colony count is low -: january tx to tele -: home meds, levemir, oob to chair and ambulate as tolerated * . Review of Systems - Medications/Allergies Allergies/Adverse Reactions: Allergies Allergy/AdvReac Type Severity Reaction Status Date / Time No Known Drug Allergies Allergy Verified 10/20/17 19:42 Medications: Current Medications Albuterol Sulfate (Albuterol Sulfate) 1.25 mg NEB QID-RT [facility] Last Admin: 12/26/17 10:40 Dose: 1.25 mg Dextrose/Water (Dextrose 50%) 25 gm SLOW IVP PRN PRN PRN Reason: Hypoglycemia Famotidine (Pepcid) 20 mg SLOW IVP Q12HR [facility] Last Admin: 12/26/17 07:44 Dose: 20 mg Glucagon (Glucagon) 1 mg IM PRN PRN PRN Reason: Hypoglycemia Heparin Sodium (Porcine) (Heparin) 5,000 units SC TID [facility] Last Admin: 12/26/17 07:44 Dose: 5,000 units Meropenem 1 gm/ Syringe 20 mls @ 240 mls/hr SLOW IVP 0200,1000,1800 [facility] Last Admin: 12/26/17 10:57 Dose: 20 mls Dextrose/Water (D5w) 1,000 mls @ 0 mls/hr IV .Q0M PRN; As Directed PRN Reason: Hypoglycemia Ibuprofen (Motrin) 400 mg PO Q6H PRN PRN Reason: FEVER/PAIN Last Admin: 12/26/17 01:51 Dose: 400 mg Influenza Virus Vaccine (Fluzone High-Dose Syr) 0.5 ml IM .ONCE ONE Stop: 12/27/17 09:01 Insulin Human Lispro (Humalog) 0 units SC .MODERATE SLIDING SC PRN PRN Reason: Moderate Correctional Scale Last Admin: 12/26/17 10:57 Dose: 8 unit Insulin Human Lispro (Humalog) 0 units SC .BEDTIME SLIDING SC PRN PRN Reason: Bedtime Correctional Scale Last Admin: 12/25/17 20:29 Dose: 3 unit Oxybutynin Chloride (Ditropan) 5 mg PO DAILY [facility] Last Admin: 12/26/17 07:42 Dose: 5 mg Phenazopyridine HCl (Azo Standard) 97.5 mg PO PC [facility] Last Admin: 12/26/17 07:42 Dose: 97.5 mg Pneumococcal 13-Valent Conj Vacc (Prevnar) 0.5 ml IM .ONCE ONE Stop: 12/27/17 09:01 Sodium Chloride (Flush - Normal Saline) 10 ml IVF Q12HR [facility] Last Admin: 12/26/17 07:44 Dose: 10 ml Sodium Chloride (Flush - Normal Saline) 10 ml IVF PRN PRN PRN Reason: Saline Flush Tamsulosin HCl (Flomax) 0.4 mg PO DAILY [facility] Last Admin: 12/26/17 07:43 Dose: 0.4 mg
[2017-12-26] MEDS: metFORMIN 500 MG TAB PO SCH (17:00)
--- NOTE | 2017-12-26 18:24 | EKG ---
Test Reason : Blood Pressure : / mmHG Vent. Rate : 100 BPM Atrial Rate : 100 BPM P-R Int : 158 ms QRS Dur : 102 ms QT Int : 372 ms P-R-T Axes : 046 -67 055 degrees QTc Int : 479 ms Normal sinus rhythm Left anterior fascicular block Anterolateral infarct (cited on or before 27-FEB-2009) Abnormal ECG When compared with ECG of 20-OCT-2017 11:39, Questionable change in initial forces of Lateral leads ST now depressed in Inferior leads ST no longer elevated in Anterior leads Confirmed by KAY WHITFIELD, SLópez ([id number]) on 12/26/2017 6:24:27 PM Referred By: Confirmed By:DR. Astrid VILLANUEVA MD
[2017-12-26] MEDS: Fish Oil 1,000 MG CAP PO SCH (21:20)
[2017-12-26] MEDS: Gabapentin 100 MG CAP PO SCH (21:21)
[2017-12-26] MEDS: Atorvastatin Calcium 40 MG TAB PO SCH (21:21)
[2017-12-26] MEDS: Carvedilol 3.125 MG TAB PO SCH (21:21)
[2017-12-26] MEDS: Famotidine 20 MG TAB PO SCH (21:21)
--- NOTE | 2017-12-26 21:33 | EKG ---
Test Reason : Blood Pressure : / mmHG Vent. Rate : 075 BPM Atrial Rate : 075 BPM P-R Int : 146 ms QRS Dur : 126 ms QT Int : 392 ms P-R-T Axes : 025 -57 119 degrees QTc Int : 437 ms Normal sinus rhythm Left axis deviation Left ventricular hypertrophy with QRS widening and repolarization abnormality Cannot rule out Septal infarct (cited on or before 27-FEB-2009) Possible Lateral infarct (cited on or before 27-FEB-2009) Abnormal ECG When compared with ECG of 25-DEC-2017 09:35, (Unconfirmed) Questionable change in initial forces of Lateral leads ST no longer depressed in Inferior leads Confirmed by Rissa REESE ([id number]) on 12/26/2017 9:32:59 PM Referred By: MARTHA Confirmed By:Rissa REESE
[2017-12-27] MEDS: Meropenem 1 GM in Syringe 20 ML SLOW IVP SCH (02:09)
[2017-12-27] MEDS: Ibuprofen 200 MG TAB PO PRN (05:19)
[2017-12-27] MEDS: Albuterol Sulfate 1.25 MG/3 ML NEB NEB SCH ×4 (06:03→18:33)
[2017-12-27 08:27] LABS: #Eosinphils 0.2 thou/uL (0.0-0.7); #Lymphocytes 0.9 thou/uL (1.20-3.40); #Monocytes 0.8 thou/uL (0.11-0.59); #Neutrophils 6.1 thou/uL (1.40-6.50); %Basophils 0.3 % (0.0-1.0); %Lymphocytes 10.8 % (21.0-51.0); %Neutrophils 75.9 % (42.0-75.0); Hemoglobin 12.1 g/dL (14.0-18.0); Mean Corpuscular HGB CONC 32.7 g/dL (32.0-36.0); Mean Corpuscular Hemoglobin 28.8 pg (27.0-31.0); Mean Platelet Volume 8.9 fL (7.4-10.4); Platelet Count 154 thou/uL (130-400); Red Blood Cell (RBC) Count 4.22 mill/uL (4.70-6.10); White Blood Cell (WBC) Count 8.1 thou/uL (4.8-10.8)
[2017-12-27] MEDS: Tamsulosin HCl 0.4 MG CAP PO SCH (08:43)
[2017-12-27] MEDS: Alogliptin 25 MG TAB PO SCH (08:43)
[2017-12-27] MEDS: metFORMIN 500 MG TAB PO SCH ×2 (08:43→17:55)
[2017-12-27] MEDS: Phenazopyridine HCl 97.5 MG TABLET PO SCH ×3 (08:43→17:55)
[2017-12-27] MEDS: Lisinopril 2.5 MG TAB PO SCH (08:43)
[2017-12-27] MEDS: Carvedilol 3.125 MG TAB PO SCH ×2 (08:43→21:26)
[2017-12-27] MEDS: Oxybutynin 5 MG TAB PO SCH (08:43)
[2017-12-27] MEDS: Heparin 5,000 UNITS/ML VIAL SC SCH ×6 (08:43→21:25)
[2017-12-27] MEDS: Aspirin 325 MG TAB PO SCH (08:43)
[2017-12-27] MEDS: Famotidine 20 MG TAB PO SCH ×2 (08:43→21:26)
[2017-12-27 08:45] LABS: Anion Gap 11 mmol/L (10-20); BUN (Urea Nitrogen) 13 mg/dL (8.4-25.7); Calc. Creatinine Clearance 101 mL/min (70-130); Calcium 9.5 mg/dL (7.8-10.44); Carbon Dioxide 26 mmol/L (23-31); Chloride 103 mmol/L (98-107); Estimated GFR-MDRD 84; Glucose 193 mg/dL (80-115); Potassium 4.3 mmol/L (3.5-5.1); Sodium 136 mmol/L (136-145)
[2017-12-27] MEDS ORDERED: FLU VACC TS2017-18 (>65YR) 0.5 ML SYRINGE IM ONE (09:00)
[2017-12-27] MEDS ORDERED: Prevnar 13-Val Conj/PF 0.5 ML SYRINGE IM ONE (09:00)
[2017-12-27] MEDS: MEROPENEM 1 GM/50 ML 1 GM in Admixture Fee 1 EACH IVPB SCH ×2 (10:20→17:56)
--- NOTE | 2017-12-27 11:19 | PDOC.PN ---
- Subjective Encounter Start Date: 12/27/17 Encounter Start Time: 10:30 Subjective: is feeling better -: no urinary freq or urgency now -: no sob, still has dry cough - Objective Resuscitation Status: Resuscitation Status FULL:Full Resuscitation MAR Reviewed: Yes Vital Signs & Weight: Vital Signs (12 hours) Temp Pulse Resp BP Pulse Ox 12/27/17 10:02 77 14 95 12/27/17 08:43 77 12/27/17 08:00 98.1 F 77 18 148/80 H 96 12/27/17 06:03 79 16 96 12/27/17 04:00 99.7 F H 79 18 127/65 96 12/27/17 00:40 99.2 F 85 20 124/65 95 Weight Admit Weight 204 lb 2.369 oz Most Recent Monitor Data Heart Rate from ECG 93 NIBP 138/68 NIBP BP-Mean 98 Respiration from ECG 22 SpO2 93 I&O: 12/26/17 12/27/17 12/28/17 06:59 06:59 06:59 Intake Total 2081 870 480 Output Total 1450 800 Balance 631 70 480 Result Diagrams: 12/27/17 08:18 12/27/17 08:18 Additional Labs: Accuchecks 12/27/17 12/26/17 12/26/17 04:59 20:55 16:59 POC Glucose 169 H 250 H 219 H Phys Exam - Physical Examination HEENT: PERRLA, moist MMs Neck: no JVD, supple Respiratory: no wheezing, no rales Cardiovascular: RRR, no significant murmur Gastrointestinal: soft, non-tender, no distention, positive bowel sounds Musculoskeletal: no edema, pulses present Neurological: non-focal, moves all 4 limbs Psychiatric: normal affect, A&O x 3 Dx/Plan (1) Sepsis Code(s): A41.9 - SEPSIS, UNSPECIFIED ORGANISM Status: Acute Qualifiers: Sepsis type: sepsis due to unspecified organism Qualified Code(s): A41.9 - Sepsis, unspecified organism (2) UTI (urinary tract infection) Status: Acute Qualifiers: Urinary tract infection type: acute cystitis Hematuria presence: without hematuria Qualified Code(s): N30.00 - Acute cystitis without hematuria (3) DM type 2 (diabetes mellitus, type 2) Status: Chronic Qualifiers: Diabetes mellitus long-term insulin use: without long-term use Diabetes mellitus complication status: with unspecified complications Qualified Code(s) : E11.8 - Type 2 diabetes mellitus with unspecified complications (4) Dyslipidemia Code(s): E78.5 - HYPERLIPIDEMIA, UNSPECIFIED Status: Chronic (5) CAD (coronary artery disease) Code(s): I25.10 - ATHSCL HEART DISEASE OF [place] CORONARY ARTERY W/O ANG PCTRS Status: Chronic Qualifiers: Coronary Disease-Associated Artery/Lesion type: [place] artery [place] vs. transplanted heart: [place] heart Associated angina: without angina Qualified Code(s): I25.10 - Atherosclerotic heart disease of [place] coronary artery without angina pectoris (6) Chronic anemia Code(s): D64.9 - ANEMIA, UNSPECIFIED Status: Chronic - Plan is on meropenem, will switch to oral antibiotics in am -: tmax of 99 now, was 105 in ER on arrrival -: likely source of sepsis is uti -: on flomax with resolving freq and urgency now -: will need outpt urology f/u, echo results pending * . dc plan in am if stable. Has prior h/o [place] with stent per patient. Review of Systems - Medications/Allergies Allergies/Adverse Reactions: Allergies Allergy/AdvReac Type Severity Reaction Status Date / Time No Known Drug Allergies Allergy Verified 10/20/17 19:42 Medications: Current Medications Albuterol Sulfate (Albuterol Sulfate) 1.25 mg NEB QID-RT [facility] Last Admin: 12/27/17 10:02 Dose: 1.25 mg Alogliptin Benzoate (Alogliptin) 25 mg PO DAILY [facility] Last Admin: 12/27/17 08:43 Dose: 25 mg Aspirin (Aspirin) 325 mg PO DAILY [facility] Last Admin: 12/27/17 08:43 Dose: 325 mg Atorvastatin Calcium (Lipitor) 80 mg PO HS [facility] Last Admin: 12/26/17 21:21 Dose: 80 mg Carvedilol (Coreg) 3.125 mg PO BID [facility] Last Admin: 12/27/17 08:43 Dose: 3.125 mg Dextrose/Water (Dextrose 50%) 25 gm SLOW IVP PRN PRN PRN Reason: Hypoglycemia Famotidine (Pepcid) 20 mg PO Q12HR [facility] Last Admin: 12/27/17 08:43 Dose: 20 mg Fish Oil (Fish Oil) 1,000 mg PO HS [facility] Last Admin: 12/26/17 21:20 Dose: 1,000 mg Gabapentin (Neurontin) 300 mg PO HS [facility] Last Admin: 12/26/17 21:21 Dose: 300 mg Glucagon (Glucagon) 1 mg IM PRN PRN PRN Reason: Hypoglycemia Heparin Sodium (Porcine) (Heparin) 5,000 units SC TID [facility] Last Admin: 12/27/17 08:43 Dose: 5,000 units Dextrose/Water (D5w) 1,000 mls @ 0 mls/hr IV .Q0M PRN; As Directed PRN Reason: Hypoglycemia Meropenem 1 gm/ Miscellaneous (Medication) 50 mls @ 100 mls/hr IVPB 0200,1000, 1800 [facility] Last Admin: 12/27/17 10:20 Dose: 50 mls Ibuprofen (Motrin) 400 mg PO Q6H PRN PRN Reason: FEVER/PAIN Last Admin: 12/27/17 05:19 Dose: 400 mg Insulin Human Lispro (Humalog) 0 units SC .MODERATE SLIDING SC PRN PRN Reason: Moderate Correctional Scale Last Admin: 12/26/17 17:02 Dose: 4 unit Insulin Human Lispro (Humalog) 0 units SC .BEDTIME SLIDING SC PRN PRN Reason: Bedtime Correctional Scale Last Admin: 12/26/17 21:26 Dose: 2 unit Lisinopril (Zestril) 2.5 mg PO DAILY [facility] Last Admin: 12/27/17 08:43 Dose: 2.5 mg Metformin HCl (Glucophage) 1,000 mg PO BID-[facility] Last Admin: 12/27/17 08:43 Dose: 1,000 mg Oxybutynin Chloride (Ditropan) 5 mg PO DAILY [facility] Last Admin: 12/27/17 08:43 Dose: 5 mg Phenazopyridine HCl (Azo Standard) 97.5 mg PO PC [facility] Last Admin: 12/27/17 08:43 Dose: 97.5 mg Sodium Chloride (Flush - Normal Saline) 10 ml IVF Q12HR [facility] Last Admin: 12/27/17 08:44 Dose: 10 ml Sodium Chloride (Flush - Normal Saline) 10 ml IVF PRN PRN PRN Reason: Saline Flush Tamsulosin HCl (Flomax) 0.4 mg PO DAILY [facility] Last Admin: 12/27/17 08:43 Dose: 0.4 mg
[2017-12-27] MEDS: HumaLOG 300 UNITS/3 ML VIAL SC PRN (12:40)
[2017-12-27] MEDS: Fish Oil 1,000 MG CAP PO SCH (21:25)
[2017-12-27] MEDS: Gabapentin 100 MG CAP PO SCH (21:25)
[2017-12-27] MEDS: Atorvastatin Calcium 40 MG TAB PO SCH (21:26)
[2017-12-28] MEDS: MEROPENEM 1 GM/50 ML 1 GM in Premix Bag 1 BAG IVPB SCH ×3 (01:51→17:01)
[2017-12-28] MEDS: Ibuprofen 200 MG TAB PO PRN ×2 (01:51→21:38)
[2017-12-28 04:53] LABS: #Eosinphils 0.3 thou/uL (0.0-0.7); #Lymphocytes 0.9 thou/uL (1.20-3.40); #Monocytes 0.9 thou/uL (0.11-0.59); #Neutrophils 4.4 thou/uL (1.40-6.50); %Basophils 0.3 % (0.0-1.0); %Eosinophils 4.6 % (0.0-10.0); %Lymphocytes 13.3 % (21.0-51.0); %Neutrophils 67.9 % (42.0-75.0); Hemoglobin 11.1 g/dL (14.0-18.0); Mean Corpuscular HGB CONC 33.4 g/dL (32.0-36.0); Mean Corpuscular Hemoglobin 29.3 pg (27.0-31.0); Mean Corpuscular Volume 87.7 fl (80.0-94.0); Mean Platelet Volume 8.8 fL (7.4-10.4); Platelet Count 163 thou/uL (130-400); Red Blood Cell (RBC) Count 3.78 mill/uL (4.70-6.10); White Blood Cell (WBC) Count 6.4 thou/uL (4.8-10.8)
[2017-12-28] MEDS: Albuterol Sulfate 1.25 MG/3 ML NEB NEB SCH ×4 (06:37→18:34)
[2017-12-28] MEDS: metFORMIN 500 MG TAB PO SCH ×2 (08:10→17:01)
[2017-12-28] MEDS: Tamsulosin HCl 0.4 MG CAP PO SCH (08:10)
[2017-12-28] MEDS: Aspirin 325 MG TAB PO SCH (08:10)
[2017-12-28] MEDS: Oxybutynin 5 MG TAB PO SCH (08:10)
[2017-12-28] MEDS: Alogliptin 25 MG TAB PO SCH (08:10)
[2017-12-28] MEDS: Famotidine 20 MG TAB PO SCH ×2 (08:10→21:38)
[2017-12-28] MEDS: Lisinopril 2.5 MG TAB PO SCH (08:10)
[2017-12-28] MEDS: Heparin 5,000 UNITS/ML VIAL SC SCH ×6 (08:11→21:37)
[2017-12-28] MEDS: Phenazopyridine HCl 97.5 MG TABLET PO SCH ×3 (08:11→17:00)
[2017-12-28] MEDS: Carvedilol 3.125 MG TAB PO SCH ×2 (08:11→21:39)
[2017-12-28] MEDS: HumaLOG 300 UNITS/3 ML VIAL SC PRN (11:51)
--- NOTE | 2017-12-28 14:28 | PDOC.PN ---
- Subjective Encounter Start Date: 12/28/17 Encounter Start Time: 14:27 Subjective: nsg notes rev, felicita ovn, no new c/o, some albanian but mostlyu -: israeli speaking, illiterate - Objective Resuscitation Status: Resuscitation Status FULL:Full Resuscitation Vital Signs & Weight: Vital Signs (12 hours) Temp Pulse Resp BP Pulse Ox 12/28/17 13:53 69 18 97 12/28/17 10:28 77 18 99 12/28/17 08:00 98.3 F 73 18 130/70 95 12/28/17 06:39 95 12/28/17 06:37 73 16 95 12/28/17 04:00 98.3 F 63 18 114/66 97 12/28/17 03:02 96 Weight Admit Weight 204 lb 2.369 oz Most Recent Monitor Data Heart Rate from ECG 93 NIBP 138/68 NIBP BP-Mean 98 Respiration from ECG 22 SpO2 93 I&O: 12/27/17 12/28/17 12/29/17 06:59 06:59 06:59 Intake Total 870 1200 Output Total 800 Balance 70 1200 Result Diagrams: 12/28/17 04:28 12/27/17 08:18 Additional Labs: Accuchecks 12/28/17 12/28/17 12/27/17 11:35 04:20 20:33 POC Glucose 205 H 183 H 265 H 12/27/17 16:38 POC Glucose 148 H Phys Exam - Physical Examination Constitutional: NAD HEENT: PERRLA, moist MMs, sclera anicteric Neck: no nodes Respiratory: no wheezing, no rales, no rhonchi, clear to auscultation bilateral Cardiovascular: RRR, no significant murmur, no rub Gastrointestinal: soft, non-tender, positive bowel sounds Musculoskeletal: edema present Neurological: moves all 4 limbs Dx/Plan - Plan 67M initially p/w sepsis and UTI sepsis * resolved UTI, multi drug resistant * currently on merrem TID day 4 of iv abx * will change to once a day ertapenem for 6 more days * apprec case mgmt c/s for outpt iv abx diet: as shanique activity: as shanique dvt ppx Review of Systems - Medications/Allergies Allergies/Adverse Reactions: Allergies Allergy/AdvReac Type Severity Reaction Status Date / Time No Known Drug Allergies Allergy Verified 10/20/17 19:42 Medications: Current Medications Albuterol Sulfate (Albuterol Sulfate) 1.25 mg NEB QID-RT [facility] Last Admin: 12/28/17 13:53 Dose: 1.25 mg Alogliptin Benzoate (Alogliptin) 25 mg PO DAILY [facility] Last Admin: 12/28/17 08:10 Dose: 25 mg Aspirin (Aspirin) 325 mg PO DAILY [facility] Last Admin: 12/28/17 08:10 Dose: 325 mg Atorvastatin Calcium (Lipitor) 80 mg PO [facility] Last Admin: 12/27/17 21:26 Dose: 80 mg Carvedilol (Coreg) 3.125 mg PO BID [facility] Last Admin: 12/28/17 08:11 Dose: 3.125 mg Dextrose/Water (Dextrose 50%) 25 gm SLOW IVP PRN PRN PRN Reason: Hypoglycemia Famotidine (Pepcid) 20 mg PO Q12HR [facility] Last Admin: 12/28/17 08:10 Dose: 20 mg Fish Oil (Fish Oil) 1,000 mg PO [facility] Last Admin: 12/27/17 21:25 Dose: 1,000 mg Gabapentin (Neurontin) 300 mg PO [facility] Last Admin: 12/27/17 21:25 Dose: 300 mg Glucagon (Glucagon) 1 mg IM PRN PRN PRN Reason: Hypoglycemia Heparin Sodium (Porcine) (Heparin) 5,000 units SC TID [facility] Last Admin: 12/28/17 14:12 Dose: 5,000 units Dextrose/Water (D5w) 1,000 mls @ 0 mls/hr IV .Q0M PRN; As Directed PRN Reason: Hypoglycemia Meropenem 1 gm/ Device 50 mls @ 100 mls/hr IVPB 0200,1000,1800 [facility] Last Admin: 12/28/17 09:50 Dose: 50 mls Ibuprofen (Motrin) 400 mg PO Q6H PRN PRN Reason: FEVER/PAIN Last Admin: 12/28/17 01:51 Dose: 400 mg Insulin Human Lispro (Humalog) 0 units SC .MODERATE SLIDING SC PRN PRN Reason: Moderate Correctional Scale Last Admin: 12/28/17 11:51 Dose: 4 unit Insulin Human Lispro (Humalog) 0 units SC .BEDTIME SLIDING SC PRN PRN Reason: Bedtime Correctional Scale Last Admin: 12/26/17 21:26 Dose: 2 unit Lisinopril (Zestril) 2.5 mg PO DAILY [facility] Last Admin: 12/28/17 08:10 Dose: 2.5 mg Metformin HCl (Glucophage) 1,000 mg PO BID[facility] Last Admin: 12/28/17 08:10 Dose: 1,000 mg Oxybutynin Chloride (Ditropan) 5 mg PO DAILY [facility] Last Admin: 12/28/17 08:10 Dose: 5 mg Phenazopyridine HCl (Azo Standard) 97.5 mg PO PC [facility] Last Admin: 12/28/17 14:12 Dose: 97.5 mg Sodium Chloride (Flush - Normal Saline) 10 ml IVF Q12HR [facility] Last Admin: 12/28/17 08:11 Dose: 10 ml Sodium Chloride (Flush - Normal Saline) 10 ml IVF PRN PRN PRN Reason: Saline Flush Tamsulosin HCl (Flomax) 0.4 mg PO DAILY [facility] Last Admin: 12/28/17 08:10 Dose: 0.4 mg
[2017-12-28] MEDS: Gabapentin 100 MG CAP PO SCH (21:37)
[2017-12-28] MEDS: Atorvastatin Calcium 40 MG TAB PO SCH (21:38)
[2017-12-28] MEDS: Fish Oil 1,000 MG CAP PO SCH (21:38)
[2017-12-29] MEDS: MEROPENEM 1 GM/50 ML 1 GM in Premix Bag 1 BAG IVPB SCH ×3 (01:59→17:04)
[2017-12-29 05:09] LABS: Band 2 % (5-11); Eosinophils 3 % (0-10); Hemoglobin 11.6 g/dL (14.0-18.0); Lymphocytes 11 % (21-51); MDiff Complete? YES; Mean Corpuscular Hemoglobin 29.1 pg (27.0-31.0); Mean Corpuscular Volume 85.6 fl (80.0-94.0); Mean Platelet Volume 8.2 fL (7.4-10.4); Monocytes 15 % (0-10); Neutrophil 69 % (42-75); Platelet Count 178 thou/uL (130-400); RBC Distribution Width 12.9 % (11.5-14.5); Red Blood Cell (RBC) Count 3.97 mill/uL (4.70-6.10); White Blood Cell (WBC) Count 8.7 thou/uL (4.8-10.8)
[2017-12-29] MEDS: Albuterol Sulfate 1.25 MG/3 ML NEB NEB SCH ×4 (07:57→18:54)
[2017-12-29] MEDS: metFORMIN 500 MG TAB PO SCH ×2 (08:15→17:04)
[2017-12-29] MEDS: Lisinopril 2.5 MG TAB PO SCH (08:15)
[2017-12-29] MEDS: Carvedilol 3.125 MG TAB PO SCH ×2 (08:15→21:02)
[2017-12-29] MEDS: Tamsulosin HCl 0.4 MG CAP PO SCH (08:15)
[2017-12-29] MEDS: Alogliptin 25 MG TAB PO SCH (08:15)
[2017-12-29] MEDS: Phenazopyridine HCl 97.5 MG TABLET PO SCH ×3 (08:15→17:04)
[2017-12-29] MEDS: Aspirin 325 MG TAB PO SCH (08:15)
[2017-12-29] MEDS: Oxybutynin 5 MG TAB PO SCH (08:16)
[2017-12-29] MEDS: Heparin 5,000 UNITS/ML VIAL SC SCH ×6 (08:16→21:02)
[2017-12-29] MEDS: Famotidine 20 MG TAB PO SCH ×2 (08:16→21:03)
[2017-12-29] MEDS: HumaLOG 300 UNITS/3 ML VIAL SC PRN (11:26)
--- NOTE | 2017-12-29 15:49 | PDOC.PN ---
- Subjective Encounter Start Date: 12/29/17 Encounter Start Time: 17:00 Subjective: nsg notes rev, felicita ovn, no new c/o - Objective Resuscitation Status: Resuscitation Status FULL:Full Resuscitation Vital Signs & Weight: Vital Signs (12 hours) Temp Pulse Resp BP BP Pulse Ox 12/29/17 14:09 73 16 97 12/29/17 10:35 76 18 94 L 12/29/17 08:15 78 133/75 12/29/17 08:00 98.3 F 78 18 135/75 96 12/29/17 07:57 78 18 96 Weight Admit Weight 204 lb 2.369 oz Most Recent Monitor Data Heart Rate from ECG 93 NIBP 138/68 NIBP BP-Mean 98 Respiration from ECG 22 SpO2 93 I&O: 12/28/17 12/29/17 12/30/17 06:59 06:59 06:59 Intake Total 1200 Balance 1200 Result Diagrams: 12/30/17 03:59 12/27/17 08:18 Additional Labs: Accuchecks 12/29/17 12/29/17 12/28/17 11:12 05:15 20:36 POC Glucose 243 H 146 H 198 H 12/28/17 16:53 POC Glucose 145 H Phys Exam - Physical Examination Constitutional: NAD HEENT: PERRLA, moist MMs, sclera anicteric Respiratory: no wheezing, no rales, no rhonchi Cardiovascular: RRR Gastrointestinal: soft Dx/Plan - Plan * 67M initially p/w sepsis and UTI sepsis * resolved UTI, multi drug resistant * will change to once a day ertapenem for 5 more days * apprec case mgmt c/s for outpt iv abx * pending availability of IV abx * c/s ID for o/p IV abx mgmt diet: as shanique activity: as shanique dvt ppx Review of Systems - Medications/Allergies Allergies/Adverse Reactions: Allergies Allergy/AdvReac Type Severity Reaction Status Date / Time No Known Drug Allergies Allergy Verified 10/20/17 19:42 Medications: Current Medications Albuterol Sulfate (Albuterol Sulfate) 1.25 mg NEB QID-RT [facility] Last Admin: 12/29/17 14:09 Dose: 1.25 mg Alogliptin Benzoate (Alogliptin) 25 mg PO DAILY [facility] Last Admin: 12/29/17 08:15 Dose: 25 mg Aspirin (Aspirin) 325 mg PO DAILY [facility] Last Admin: 12/29/17 08:15 Dose: 325 mg Atorvastatin Calcium (Lipitor) 80 mg PO HS [facility] Last Admin: 12/28/17 21:38 Dose: 80 mg Carvedilol (Coreg) 3.125 mg PO BID [facility] Last Admin: 12/29/17 08:15 Dose: 3.125 mg Dextrose/Water (Dextrose 50%) 25 gm SLOW IVP PRN PRN PRN Reason: Hypoglycemia Famotidine (Pepcid) 20 mg PO Q12HR [facility] Last Admin: 12/29/17 08:16 Dose: 20 mg Fish Oil (Fish Oil) 1,000 mg PO HS [facility] Last Admin: 12/28/17 21:38 Dose: 1,000 mg Gabapentin (Neurontin) 300 mg PO [facility] Last Admin: 12/28/17 21:37 Dose: 300 mg Glucagon (Glucagon) 1 mg IM PRN PRN PRN Reason: Hypoglycemia Heparin Sodium (Porcine) (Heparin) 5,000 units SC TID [facility] Last Admin: 12/29/17 08:16 Dose: 5,000 units Dextrose/Water (D5w) 1,000 mls @ 0 mls/hr IV .Q0M PRN; As Directed PRN Reason: Hypoglycemia Meropenem 1 gm/ Device 50 mls @ 100 mls/hr IVPB 0200,1000,1800 [facility] Last Admin: 12/29/17 10:22 Dose: 50 mls Ibuprofen (Motrin) 400 mg PO Q6H PRN PRN Reason: FEVER/PAIN Last Admin: 12/28/17 21:38 Dose: 400 mg Insulin Human Lispro (Humalog) 0 units SC .MODERATE SLIDING SC PRN PRN Reason: Moderate Correctional Scale Last Admin: 12/29/17 11:26 Dose: 4 unit Insulin Human Lispro (Humalog) 0 units SC .BEDTIME SLIDING SC PRN PRN Reason: Bedtime Correctional Scale Last Admin: 12/26/17 21:26 Dose: 2 unit Lisinopril (Zestril) 2.5 mg PO DAILY [facility] Last Admin: 12/29/17 08:15 Dose: 2.5 mg Metformin HCl (Glucophage) 1,000 mg PO BID[facility] Last Admin: 12/29/17 08:15 Dose: 1,000 mg Oxybutynin Chloride (Ditropan) 5 mg PO DAILY [facility] Last Admin: 12/29/17 08:16 Dose: 5 mg Phenazopyridine HCl (Azo Standard) 97.5 mg PO PC [facility] Last Admin: 12/29/17 11:26 Dose: 97.5 mg Sodium Chloride (Flush - Normal Saline) 10 ml IVF Q12HR [facility] Last Admin: 12/29/17 10:22 Dose: 10 ml Sodium Chloride (Flush - Normal Saline) 10 ml IVF PRN PRN PRN Reason: Saline Flush Tamsulosin HCl (Flomax) 0.4 mg PO DAILY [facility] Last Admin: 12/29/17 08:15 Dose: 0.4 mg
[2017-12-29] MEDS: Gabapentin 100 MG CAP PO SCH (21:01)
[2017-12-29] MEDS: Ibuprofen 200 MG TAB PO PRN (21:02)
[2017-12-29] MEDS: Fish Oil 1,000 MG CAP PO SCH (21:02)
[2017-12-29] MEDS: Atorvastatin Calcium 40 MG TAB PO SCH (21:02)
[2017-12-30] MEDS: MEROPENEM 1 GM/50 ML 1 GM in Premix Bag 1 BAG IVPB SCH ×2 (01:57→09:45)
[2017-12-30 04:38] LABS: #Basophils 0.1 thou/uL (0.0-0.2); #Eosinphils 0.6 thou/uL (0.0-0.7); #Lymphocytes 1.7 thou/uL (1.20-3.40); #Monocytes 1.3 thou/uL (0.11-0.59); #Neutrophils 6.4 thou/uL (1.40-6.50); %Eosinophils 5.6 % (0.0-10.0); %Lymphocytes 17.1 % (21.0-51.0); %Monocytes 12.8 % (0.0-10.0); %Neutrophils 63.5 % (42.0-75.0); Mean Corpuscular HGB CONC 34.1 g/dL (32.0-36.0); Mean Corpuscular Hemoglobin 29.1 pg (27.0-31.0); Mean Corpuscular Volume 85.4 fl (80.0-94.0); Platelet Count 205 thou/uL (130-400); Red Blood Cell (RBC) Count 4.11 mill/uL (4.70-6.10)
[2017-12-30] MEDS: Albuterol Sulfate 1.25 MG/3 ML NEB NEB SCH ×3 (07:02→15:08)
[2017-12-30 07:39] VITALS: BP 125/77; TEMP 98.1
[2017-12-30] MEDS: metFORMIN 500 MG TAB PO SCH (08:28)
[2017-12-30] MEDS: Tamsulosin HCl 0.4 MG CAP PO SCH (08:28)
[2017-12-30] MEDS: Famotidine 20 MG TAB PO SCH (08:28)
[2017-12-30] MEDS: Carvedilol 3.125 MG TAB PO SCH (08:28)
[2017-12-30] MEDS: Alogliptin 25 MG TAB PO SCH (08:28)
[2017-12-30] MEDS: Oxybutynin 5 MG TAB PO SCH (08:28)
[2017-12-30] MEDS: Aspirin 325 MG TAB PO SCH (08:28)
[2017-12-30] MEDS: Heparin 5,000 UNITS/ML VIAL SC SCH ×2 (08:28)
[2017-12-30] MEDS: Phenazopyridine HCl 97.5 MG TABLET PO SCH ×2 (08:28→12:14)
[2017-12-30] MEDS: Lisinopril 2.5 MG TAB PO SCH (08:30)
[2017-12-30] MEDS: HumaLOG 300 UNITS/3 ML VIAL SC PRN (12:14)
== END 2017-12-30 15:30 | disposition home or self-care (01) | DRG 872 ==
LOC: ERS 23:11 → CCU 12-25 04:57 → T4-A 12-26 20:51
PROVIDERS: ADMIT Internal Medicine; ATTEND Internal Medicine
DX: A41.9 Sepsis, unspecified organism (principal); I95.9 Hypotension, unspecified; N30.00 Acute cystitis without hematuria; E78.5 Hyperlipidemia, unspecified; E11.9 Type 2 diabetes mellitus without complications; D64.9 Anemia, unspecified; Z16.24 Resistance to multiple antibiotics; R35.0 Frequency of micturition; R39.15 Urgency of urination; S80.02XA Contusion of left knee, initial encounter; V80.010A Animal-rider injured by fall from or being thrown from horse in noncollision accident, initial encounter; I25.10 Atherosclerotic heart disease of native coronary artery without angina pectoris; I25.2 Old myocardial infarction; Z23 Encounter for immunization
CPT/HCPCS: 36415; 36416; 74177; 80048; 83605; 85025; 90471; 90670; 90682; 93005; 93010; 93306; 94640; 94760; 96361; 96365; A4216; G0008; G0009; J1644; J2185; J3370; J7050; Q2036; S0028

== ENCOUNTER 2018-05-17 14:38 | Emergency (ER) | payer MEDICARE ==
[2018-05-17 15:17] LABS: Hemoglobin 13.1 g/dL (14.0-18.0); Mean Corpuscular HGB CONC 34.7 g/dL (32.0-36.0); Mean Corpuscular Hemoglobin 29.2 pg (27.0-31.0); Mean Corpuscular Volume 84.1 fL (78.0-98.0); Mean Platelet Volume 8.6 fL (7.4-10.4); Platelet Count 174 thou/uL (130-400); RBC Distribution Width 12.7 % (11.5-14.5); Red Blood Cell (RBC) Count 4.49 mill/uL (4.70-6.10); White Blood Cell (WBC) Count 18.4 thou/uL (4.8-10.8)
[2018-05-17 15:35] LABS: Band 9 % (5-11); Lymphocytes 1 % (21-51); MDiff Complete? YES; Monocytes 4 % (0-10); Neutrophil 86 % (42-75); PLT Morphology Comment Appears Adequate
[2018-05-17 15:36] LABS: ALT (SGPT) 19 U/L (8-55); AST (SGOT) 21 U/L (5-34); Albumin 3.8 g/dL (3.4-4.8); Alkaline Phosphatase 88 U/L (40-150); Anion Gap 13 mmol/L (10-20); BUN (Urea Nitrogen) 23 mg/dL (8.4-25.7); Bilirubin, Total 0.9 mg/dL (0.2-1.2); Calc. Creatinine Clearance 0 mL/min (70-130); Calcium 9.2 mg/dL (7.8-10.44); Carbon Dioxide 24 mmol/L (23-31); Chloride 101 mmol/L (98-107); Estimated GFR-MDRD 75; Globulin 3.3 g/dL (2.4-3.5); Glucose 93 mg/dL (80-115); Lipase 7 U/L (8-78); Potassium 3.9 mmol/L (3.5-5.1); Protein, Total 7.1 g/dL (5.8-8.1); Sodium 134 mmol/L (136-145)
[2018-05-17 15:37] LABS: CKMB 1.1 ng/mL (0-6.6); Troponin I 0.018 ng/mL (< 0.028)
[2018-05-17 17:17] LABS: Bilirubin Negative (Negative); Blood, Urine Moderate (Negative); Clarity CLOUDY (Clear); Glucose, Urine (Dipstick) Negative (Negative); Leukocyte Moderate (Negative); Nitrite Positive (Negative); Protein, Urine (Dipstick) 100 mg/dL (Neg-Trace); Specific Gravity, Urine 1.023 (1.002-1.036); pH, Urine 6.5 (5.0-9.0)
[2018-05-17 17:18] LABS: Bacteria/HPF 4+ HPF (None Seen); Hyaline Casts/LPF 4-6 HYALINE CAST LPF (0-3 Hyaline); Squamous Epithelial 0-3 HPF (0-3)
--- NOTE | 2018-05-17 19:21 | RAD ---
ACUTE ABDOMINAL SERIES INCLUDING TWO VIEW ABDOMEN AND FRONTAL VIEW CHEST: 05/17/18 INDICATION: Chest and abdominal pain. FINDINGS: There is elevation of the right hemidiaphragm with adjacent atelectasis. The cardiac silhouette is en larged. There is vascular calcification. No free air is visualized beneath the hemidiaphragms. Bowel gas pattern is nonobstructed. There is osseous degenerative change. IMPRESSION: 1. Elevated right hemidiaphragm with right basilar atelectasis. 2. Nonobstructive bowel gas pattern. 3. No free air. POS: [facility]
[2018-05-17] MEDS ORDERED: cefTRIAXone\\ROCEPHIN 2 GM VIAL ONE (19:22)
[2018-05-17] MEDS ORDERED: Bisacodyl 10 MG SUPP ONE (19:22)
== END 2018-05-17 20:42 | disposition home or self-care (01) ==
LOC: ERS 14:38
DX: K59.00 Constipation, unspecified (principal); N39.0 Urinary tract infection, site not specified; E86.0 Dehydration; E11.9 Type 2 diabetes mellitus without complications; E78.5 Hyperlipidemia, unspecified; I25.2 Old myocardial infarction; I25.10 Atherosclerotic heart disease of native coronary artery without angina pectoris; I10 Essential (primary) hypertension; Z79.4 Long term (current) use of insulin; Z79.899 Other long term (current) drug therapy; Z79.82 Long term (current) use of aspirin
CPT/HCPCS: 36415; 51701; 74022; 80053; 81003; 81015; 82553; 83605; 83690; 84484; 85025; 87040; 87077; 87086; 87186; 93005; 96365; J0696

== ENCOUNTER 2020-01-25 08:12 | Emergency (ER) | payer MEDICARE ==
[2020-01-25] MEDS ORDERED: Ondansetron PF 4 MG/2 ML Vial ONE (09:09)
[2020-01-25] MEDS ORDERED: Morphine 4 MG/ML VIAL ONE (09:09)
[2020-01-25 09:26] LABS: #Eosinphils 0.5 thou/uL (0.0-0.7); #Lymphocytes 1.3 thou/uL (1.20-3.40); #Monocytes 0.8 thou/uL (0.11-0.59); #Neutrophils 6.1 thou/uL (1.40-6.50); %Basophils 0.3 % (0.0-1.0); %Eosinophils 6.2 % (0.0-10.0); %Lymphocytes 15.4 % (21.0-51.0); %Monocytes 8.7 % (0.0-10.0); %Neutrophils 69.4 % (42.0-75.0); Mean Corpuscular HGB CONC 33.1 g/dL (32.0-36.0); Mean Corpuscular Hemoglobin 28.5 pg (27.0-31.0); Mean Corpuscular Volume 86.1 fL (78.0-98.0); Mean Platelet Volume 8.6 fL (7.4-10.4); Platelet Count 200 thou/uL (130-400); RBC Distribution Width 13.2 % (11.5-14.5); Red Blood Cell (RBC) Count 4.21 mill/uL (4.70-6.10); White Blood Cell (WBC) Count 8.7 thou/uL (4.8-10.8)
[2020-01-25 09:45] LABS: ALT (SGPT) 17 U/L (8-55); AST (SGOT) 15 U/L (5-34); Albumin 3.5 g/dL (3.4-4.8); Alkaline Phosphatase 71 U/L (40-110); Anion Gap 11 mmol/L (10-20); BUN (Urea Nitrogen) 14 mg/dL (8.4-25.7); Bilirubin, Total 0.5 mg/dL (0.2-1.2); Calc. Creatinine Clearance 0 mL/min (70-130); Calcium 8.9 mg/dL (7.8-10.44); Carbon Dioxide 27 mmol/L (23-31); Chloride 102 mmol/L (98-107); Estimated GFR-MDRD Greater than 90; Globulin 2.6 g/dL (2.4-3.5); Glucose 202 mg/dL (83-110); Lipase 9 U/L (8-78); Potassium 3.6 mmol/L (3.5-5.1); Protein, Total 6.1 g/dL (5.8-8.1); Sodium 136 mmol/L (136-145)
[2020-01-25] MEDS ORDERED: Iopamidol-370 76% 500 ML 1 ML ONE (09:55)
--- NOTE | 2020-01-25 11:37 | CT ---
ABDOMEN AND PELVIC CT SCAN WITH IV CONTRAST: HISTORY: Abdominal pain, constipation. COMPARISON: Noncontrast study 01/17/2020. FINDINGS: Minimal stable linear and pleural-based parenchymal changes in the right chest. Prominent 3-vessel c oronary artery calcific disease. The liver, gallbladder, and pancreas appear unremarkable. Stable h ypodensity in the spleen. No renal calculi or acute obstruction. Evidence for bilateral renal st able cysts and hypodensities. Again noted in the pelvis is some marked colonic wall thickness which is better defined on today's study given that today's study is a postcontrast study with significant lumen diameter narrowing. Marked perirectal fat stranding with several enlarged perirectal lymph nod es up to approximately 0.9 cm in the right pelvic sidewall region. There is fat stranding extending into the posterior perirenal retroperitoneal regions bilaterally. No CT evidence for acute appendici tis. No evidence of associated abscess. IMPRESSION: Little change in the appearance of the pelvis when compared to the prior study with marked perirectal fat stranding with some enlarged lymph nodes, but no evidence for an identifiable drainable abscess. The marked colonic wall thickness is somewhat better demonstrated on this postcontrast study than o n the prior study with marked lumen diameter narrowing. 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 Further evaluation with endoscopy is recommende d. Findings were discussed with Dr. Santizo in the emergency room at 10:00 a.m. TOMMY AVILA
[2020-01-25] MEDS ORDERED: HYDROcodone/Acetaminophen 10/325 mg Tablet ONE (12:59)
== END 2020-01-25 13:00 | disposition home or self-care (01) ==
LOC: ERS 08:12
DX: K62.89 Other specified diseases of anus and rectum (principal); E11.9 Type 2 diabetes mellitus without complications; E78.5 Hyperlipidemia, unspecified; I25.10 Atherosclerotic heart disease of native coronary artery without angina pectoris; I10 Essential (primary) hypertension; I25.2 Old myocardial infarction; Z79.4 Long term (current) use of insulin; Z79.899 Other long term (current) drug therapy
CPT/HCPCS: 74177; 80053; 83690; 85025; 96374; 96375; 99284; J2270; J2405; 36415; Q9967

== ENCOUNTER 2020-01-30 10:18 | Inpatient (IN) | payer MEDICARE ==
[2020-01-30 11:01] LABS: Bilirubin Negative (Negative); Blood, Urine Negative (Negative); Clarity Clear (Clear); Glucose, Urine (Dipstick) Greater than 1000 mg/dL (Negative); Leukocyte Negative Leu/uL (Negative); Nitrite Negative (Negative); Protein, Urine (Dipstick) 20 mg/dL (Neg-Trace); Urobilinogen Normal mg/dL (Less than 2)
[2020-01-30 11:25] LABS: #Eosinphils 0.3 thou/uL (0.0-0.7); #Lymphocytes 0.9 thou/uL (1.20-3.40); #Monocytes 0.7 thou/uL (0.11-0.59); #Neutrophils 5.8 thou/uL (1.40-6.50); %Basophils 0.2 % (0.0-1.0); %Eosinophils 3.4 % (0.0-10.0); %Lymphocytes 11.8 % (21.0-51.0); %Monocytes 8.8 % (0.0-10.0); %Neutrophils 75.8 % (42.0-75.0); Hemoglobin 12.5 g/dL (14.0-18.0); Mean Corpuscular HGB CONC 32.8 g/dL (32.0-36.0); Mean Corpuscular Hemoglobin 28.6 pg (27.0-31.0); Mean Corpuscular Volume 87.4 fL (78.0-98.0); Mean Platelet Volume 8.5 fL (7.4-10.4); Platelet Count 198 thou/uL (130-400); RBC Distribution Width 13.2 % (11.5-14.5); Red Blood Cell (RBC) Count 4.39 mill/uL (4.70-6.10); White Blood Cell (WBC) Count 7.7 thou/uL (4.8-10.8)
[2020-01-30 11:51] LABS: ALT (SGPT) 21 U/L (8-55); AST (SGOT) 30 U/L (5-34); Albumin 3.7 g/dL (3.4-4.8); Alkaline Phosphatase 65 U/L (40-110); Anion Gap 12 mmol/L (10-20); BUN (Urea Nitrogen) 10 mg/dL (8.4-25.7); Bilirubin, Total 0.3 mg/dL (0.2-1.2); Calc. Creatinine Clearance 0 mL/min (70-130); Calcium 8.9 mg/dL (7.8-10.44); Carbon Dioxide 23 mmol/L (23-31); Chloride 104 mmol/L (98-107); Estimated GFR-MDRD Greater than 90; Globulin 2.9 g/dL (2.4-3.5); Glucose 204 mg/dL (83-110); Lipase 11 U/L (8-78); Potassium 3.9 mmol/L (3.5-5.1); Protein, Total 6.6 g/dL (5.8-8.1); Sodium 135 mmol/L (136-145)
[2020-01-30] MEDS ORDERED: Ondansetron PF 4 MG/2 ML Vial ONE (12:34)
[2020-01-30] MEDS ORDERED: Morphine 4 MG/ML VIAL ONE (12:34)
[2020-01-30] MEDS ORDERED: GoLYTELY 4,000 ml Bottle PO SCH (13:15)
[2020-01-30] MEDS ORDERED: Morphine 2 MG/ML SYRINGE SLOW IVP PRN (14:10)
[2020-01-30] MEDS ORDERED: Ondansetron ODT 4 MG TAB PO PRN (14:10)
[2020-01-30] MEDS ORDERED: Ondansetron PF 4 MG/2 ML Vial IVP PRN (14:10)
[2020-01-30] MEDS ORDERED: Morphine 4 MG/ML VIAL IV PRN (14:11)
--- NOTE | 2020-01-30 17:40 | PDOC.HHP ---
Hospitalist HPI - History of Present Illness abdominal pain and constipation History of Present Illness: 69yo M w/ MHx of diverticulitis presents for progressively worsening abdominal pain and constipation. Patient initially presented two weeks ago with complaints of abdominal pain, CT scan c/w diverticulosis but some rectal thickening and lymphadenopathy appreciated. Was treated with antiobiotics for diverticulitis and requested to return for repeat scan to follow resolution. repeat scan showed similar findings, unclear why wasn't admitted, given bowel regimen and discharged. Despite bowel regimen, abdominal pain worsened and bowel movements became less frequent and smaller, so presented to the ED. on encounter, lying comfortably in bed and endorses improving abdominal pain, mostly left lower quadrent. Has no other complaints and denies weight loss, generalized weakness, chills,fevers, chest pain, palpitations, melena, hematochezia. ED Course: In the ED, consulted GI who requested that the patient be admitted for colonoscopy. He was admitted to the medical floor pending colonoscopy tomorrow Hospitalist ROS - Review of Systems Constitutional: denies: fever, chills, sweats, weakness, malaise, other Respiratory: denies: cough, dry, shortness of breath, hemoptysis, SOB with excertion, pleuritic pain, sputum, wheezing, other Cardiovascular: denies: chest pain, palpitations, orthopnea, paroxysmal noc. dyspnea, edema, light headedness, other Gastrointestinal: reports: constipation. denies: nausea, vomiting, abdominal pain, diarrhea, melena, hematochezia, other Genitourinary: denies: dysuria, frequency, incontinence, hematuria, retention, other Hospitalist History - Past Medical History Source: old records (1. History of coronary artery disease with prior STEMI and stenting done to LAD in 01/2009. 2. History of nephrolithiasis in 2006. 3. Diabetes mellitus type 2. 4. History of diverticulitis in 04/2012 5. History of prostatitis,. 6. Dyslipidemia. PERSONAL HISTORY: Does not abuse alcohol or drugs. No history of smoking. Lives with his . FAMILY HISTORY: Mother at the age of 80 years from old age. Father at the age of 26 years and has had some kind of infection of the occiput of his scalp area, which spread. He does not recall the exact diagnosis. allergies: NKDA medications: will be reconciled) - Exam General Appearance: NAD, awake alert General - other findings: morbidly obese Eye: PERRL, anicteric sclera Neck: no JVD Heart: RRR, no murmur, no gallops, no rubs, normal peripheral pulses Respiratory: CTAB, no wheezes, no rales, no ronchi, normal chest expansion, no tachypnea, normal percussion Gastrointestinal: soft, non-distended Gastrointestinal - other findings: hyperactive bowel sounds; mild LLQ tenderness ; rectal exam unremarkable Extremities: no edema Psychiatric: normal affect, normal behavior, A&O x 3 Hospitalist Results - Labs Result Diagrams: 01/30/20 11:08 01/30/20 11:08 Lab results: WBC 7.7 thou/uL (4.8-10.8) 01/30/20 11:08 Hgb 12.5 g/dL (14.0-18.0) L 01/30/20 11:08 Hct 38.3 % (42.0-52.0) L 01/30/20 11:08 MCV 87.4 fL (78.0-98.0) 01/30/20 11:08 Plt Count 198 thou/uL (130-400) 01/30/20 11:08 Neutrophils % 75.8 % (42.0-75.0) H 01/30/20 11:08 Sodium 135 mmol/L (136-145) L 01/30/20 11:08 Potassium 3.9 mmol/L (3.5-5.1) 01/30/20 11:08 Chloride 104 mmol/L (98-107) 01/30/20 11:08 Carbon Dioxide 23 mmol/L (23-31) 01/30/20 11:08 BUN 10 mg/dL (8.4-25.7) 01/30/20 11:08 Creatinine 0.83 mg/dL (0.7-1.3) 01/30/20 11:08 Glucose 204 mg/dL (83-110) H 01/30/20 11:08 Calcium 8.9 mg/dL (7.8-10.44) 01/30/20 11:08 Total Bilirubin 0.3 mg/dL (0.2-1.2) 01/30/20 11:08 AST 30 U/L (5-34) 01/30/20 11:08 ALT 21 U/L (8-55) 01/30/20 11:08 Alkaline Phosphatase 65 U/L (40-110) 01/30/20 11:08 Serum Total Protein 6.6 g/dL (5.8-8.1) 01/30/20 11:08 Albumin 3.7 g/dL (3.4-4.8) 01/30/20 11:08 Lipase 11 U/L (8-78) 01/30/20 11:08 Urine Ketones Negative mg/dL (Negative) 01/30/20 10:44 Urine Blood Negative (Negative) 01/30/20 10:44 Urine Nitrite Negative (Negative) 01/30/20 10:44 Ur Leukocyte Esterase Negative Bev/uL (Negative) 01/30/20 10:44 Hospitalist H&P A/P - Problem (1) Rectal mass Code(s): K62.89 - OTHER SPECIFIED DISEASES OF ANUS AND RECTUM Status: Acute (2) Heart failure Code(s): I50.9 - HEART FAILURE, UNSPECIFIED Status: Acute (3) CAD (coronary artery disease) Code(s): I25.10 - ATHSCL HEART DISEASE OF [place] CORONARY ARTERY W/O ANG PCTRS Status: Chronic Qualifiers: Coronary Disease-Associated Artery/Lesion type: [place] artery [place] vs. 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
[2020-01-30] MEDS: HYDROcodone/Acetaminophen 5/325 mg Tablet PO PRN (20:19)
[2020-01-31 05:23] LABS: #Eosinphils 0.2 thou/uL (0.0-0.7); #Lymphocytes 1.1 thou/uL (1.20-3.40); #Monocytes 0.7 thou/uL (0.11-0.59); #Neutrophils 6.3 thou/uL (1.40-6.50); %Basophils 0.5 % (0.0-1.0); %Eosinophils 2.9 % (0.0-10.0); %Lymphocytes 13.1 % (21.0-51.0); %Monocytes 8.5 % (0.0-10.0); %Neutrophils 75.1 % (42.0-75.0); Hemoglobin 12.3 g/dL (14.0-18.0); Mean Corpuscular HGB CONC 31.5 g/dL (32.0-36.0); Mean Corpuscular Hemoglobin 27.6 pg (27.0-31.0); Mean Corpuscular Volume 87.5 fL (78.0-98.0); Mean Platelet Volume 9.1 fL (7.4-10.4); Platelet Count 206 thou/uL (130-400); RBC Distribution Width 13.3 % (11.5-14.5); Red Blood Cell (RBC) Count 4.45 mill/uL (4.70-6.10); White Blood Cell (WBC) Count 8.4 thou/uL (4.8-10.8)
[2020-01-31 05:27] LABS: Prothrombin Time 12.9 SEC (12.0-14.7)
[2020-01-31 05:28] LABS: PTT 30.7 SEC (22.9-36.1)
[2020-01-31 05:41] LABS: Anion Gap 12 mmol/L (10-20); BUN (Urea Nitrogen) 7 mg/dL (8.4-25.7); Calc. Creatinine Clearance 0 mL/min (70-130); Calcium 9.2 mg/dL (7.8-10.44); Carbon Dioxide 28 mmol/L (23-31); Chloride 106 mmol/L (98-107); Estimated GFR-MDRD Greater than 90; Glucose 74 mg/dL (83-110); Magnesium 1.8 mg/dL (1.6-2.6); Potassium 3.7 mmol/L (3.5-5.1); Sodium 142 mmol/L (136-145)
[2020-01-31] MEDS ORDERED: Dextrose 5% in Water 500 ML IV SCH (06:15)
--- NOTE | 2020-01-31 07:40 | CON ---
DATE OF CONSULTATION: REASON FOR CONSULTATION: Mr. Palafox is a 69-year-old gentleman who was seen in the emergency room recently at [facility] with suprapubic abdominal pain, cramping, and constipation. Apparently, he had been seen at the [place] [facility] on the of this month and had a CAT scan which showed upper rectal and sigmoid inflammation, thickening, history of possible diverticulitis without improvement and returned to the hospital on the . CAT scan showed little changes of this, also some enlarged regional lymph nodes. He was placed on MiraLAX and sent to our office. Dr. Mcarthur saw him on 01/28 and noted on rectal exam there was firm circumferential narrowing in the upper part of the rectum concerning for neoplastic process. A colonoscopy was scheduled, which was to occur on the ; however, the patient apparently could not come up due to cost of the procedure and returned to the emergency room. Presently, he states he has some suprapubic pain. He drank some of the prep yesterday, but then had stopped. He had no nausea, vomiting, or fever, chills. PAST MEDICAL HISTORY: Diabetes, insulin-dependent. PAST SURGICAL HISTORY: Abdominal surgery of unclear type, cardiac cath without stent. MEDICATIONS: At home, he had recently been treated with Cipro and Flagyl, and now just on Crestor, gabapentin, hydrocodone p.r.n., Januvia p.r.n., Novolin insulin. The ER also notes metformin, lisinopril, Invanz, carvedilol, atorvastatin. Present medications in hospital; p.r.n. morphine, Zofran, GoLYTELY has been ordered for prep. SOCIAL HISTORY: Does not smoke, drink, or use any drugs. REVIEW OF SYSTEMS: No rectal bleeding or fever or chills. No prior history of diverticulitis. FAMILY HISTORY: No known family history of colon cancer. REVIEW OF SYSTEMS: No chest pain, shortness of breath, dyspnea on exertion, weight loss, nausea or vomiting, melena, hematochezia, or hematemesis. PHYSICAL EXAMINATION: VITAL SIGNS: Temperature is 97.8, pulse 73, blood pressure 139/80. LUNGS: Clear. HEART: Regular rate and rhythm without clicks or murmurs. ABDOMEN: Soft and nontender. No palpable hepatosplenomegaly. EXTREMITIES: No clubbing, cyanosis, or edema. LABORATORY DATA: White count 7.7, hemoglobin 12.5, platelet count 198. His white count was 18 on 05/07/2018. More recently when he was here in the hospital on the and , his white count was 11.5 and 8.7. Comprehensive metabolic profile is normal. Normal liver function tests and lipase. No tumor markers have been done. Imaging: CT scan from 01/24 was reviewed. There was a fairly long segment of thickening in the distal sigmoid, proximal rectum, perirectal fat stranding, some enlarged lymph nodes. No overt abscess. Differential diagnosis would include colorectal malignancy versus diverticulitis. Rectal neoplasia is more concerning as he has not had no improvement with empiric treatment for diverticulitis. He has no leukocytosis and no fever. PLAN: Colonoscopy tomorrow. Job ID: [id number]
[2020-01-31] MEDS ORDERED: Ondansetron HCl/PF 4 MG/2 ML Vial IVP PRN (09:43)
[2020-01-31] MEDS ORDERED: Promethazine HCl 25 MG/ML VIAL IM PRN (09:43)
[2020-01-31] MEDS ORDERED: Promethazine HCl 25 MG/ML VIAL SLOW IVP PRN (09:43)
[2020-01-31] MEDS ORDERED: Iopamidol-370 76% 500 ML 1 ML ONE (09:51)
[2020-01-31] MEDS ORDERED: Lidocaine 1% PF 5 ML VIAL ONE (11:09)
[2020-01-31] MEDS ORDERED: PROPOFOL 200 MG/20 ML VIAL ONE (11:09)
[2020-01-31] MEDS ORDERED: HYDROcodone/Acetaminophen 5/325 mg Tablet PO SCH (11:45)
[2020-01-31] MEDS: Rosuvastatin 20 MG TAB PO SCH (11:57)
[2020-01-31] MEDS: Aspirin Chewable 81 MG TAB PO SCH (11:57)
[2020-01-31] MEDS: Enoxaparin Sodium 30 MG/0.3 ML SYRINGE SC SCH (11:58)
[2020-01-31 12:29] VITALS: BMI 33.6
--- NOTE | 2020-01-31 14:29 | OP ---
DATE OF PROCEDURE: 01/31/2020 PROCEDURE PERFORMED: Colonoscopy with biopsy, polypectomy, and submucosal injection. INDICATIONS FOR PROCEDURE: Abnormal GI imaging showing inflammation and probable mass within the sigmoid and rectum, suprapubic abdominal pain. DESCRIPTION OF PROCEDURE: After the risks and benefits of the procedure were explained to the patient including risks of bleeding, infection, perforation, reactions to anesthesia, aspiration and/or pain, informed consent was obtained. The patient was then taken to the endoscopy suite, where he was maneuvered into the left lateral decubitus position, followed by deep sedation via propofol and anesthesia support. Once adequate sedation was achieved, a digital rectal examination was performed followed by introduction of the standard colonoscope, which was then advanced to the distal rectum. Initially, passage past the distal rectum was unable to be achieved, but with irrigation and insufflation of carbon dioxide, it was successfully able to be traversed and the scope was advanced to the terminal ileum with some difficulty due to this region of stricture/stenosis in the rectum. The quality of the prep was fair with a moderate amount of solid stool balls seen throughout the entire colon limiting visualization of the colonic mucosa somewhat, but not tremendously so (quality of the prep was fair). The patient tolerated the procedure well with no immediate perioperative complications. Upon conclusion of the procedure, all equipment was removed from the patient and he was transferred to PACU in satisfactory condition. FINDINGS: Digital rectal exam: A small amount of retained solid stool was palpated on rectal examination and visually removed. No solid areas or masses were palpated with normal findings on external examination. Colon findings: A high-grade stricture/stenosis was seen in the proximal rectum extending from 10 to 20 cm past the anal verge. Initially, this region of increased erythema, edema, and occasional small superficial ulcerations was unable to be traversed. Multiple biopsies were taken from this region and placed in a specimen jar for evaluation; however, with further insufflation of carbon dioxide and manipulation of the scope, it was successfully able to be traversed with some difficulty with the scope then advanced to the terminal ileum. Within the terminal ileum, there were multiple polypoid structures without any associated erythema or ulcerations. They measure between 3 to 4 mm in size and were sessile and pedunculated. Multiple biopsies were taken from these polyps and placed in a specimen jar for further evaluation. Normal-appearing mucosa was then seen at the ileocecal valve and appendiceal orifice. A 4 to 5 mm polyp was seen in the cecum and completely removed with snare cautery polypectomy. It was retrieved and placed in a specimen jar for further evaluation. Retained solid stool balls were seen throughout the entire colon and did limit the visualization of the colonic mucosa somewhat, but approximately 90% of the colonic mucosa was able to be visualized. With that, normal-appearing mucosa was seen in the ascending, transverse and proximal descending colons. In the distal descending and sigmoid colons, a moderate amount of small and large diverticula were seen with no evidence of diverticulitis. A 7- to 8-mm polyp was also seen in the distal sigmoid and completely removed with snare cautery polypectomy. It was retrieved and placed in a specimen jar for further evaluation. Again, the rectal stricture/stenosis was seen in the proximal rectum and extended from 10 to 20 cm past the anal verge. Two tattoos were placed on the proximal end of this stenosis/stricture for further evaluation/reference. Normal-appearing mucosa was then seen in the distal rectum with small hypertrophied anal papillae seen on rectal retroflexion. IMPRESSION: 1. Multiple small solid stool balls were seen throughout the entire colon indicating a fair prep. 2. A circumferential region of erythema, edema and superficial ulcerations was seen between 10 to 20 cm past the anal verge concerning for malignant process versus ischemic colitis, status post biopsies. 3. Multiple polypoid structure seen within the terminal ileum consistent with Peyer's patches, but biopsies taken for further evaluation. 4. A 4- to 5-mm cecal polyp status post hot snare. 5. [id number] left-sided diverticulosis. 6. A 7- to 8-mm sigmoid polyp status post hot snare polypectomy. 7. Small hypertrophied anal papillae. RECOMMENDATIONS: 1. We would follow up on the biopsy results with further management based on the pathology report. 2. We would proceed with a CT scan of the chest given the higher likelihood of a malignant process and for staging purposes. 3. If the biopsy results show evidence of malignancy, we would consult Oncology Service for further management options. 4. We would recommend a full liquid diet over the next 24 hours and advance to a low-fiber diet, given the significant stricture/stenosis. 5. Pain control per primary team. We will sign off at this time with the patient to follow up in the outpatient GI Clinic within 1 to 2 weeks. Please call with any additional questions. Job ID: [id number]
--- NOTE | 2020-01-31 19:53 | PDOC.HOSPP ---
- Subjective Encounter Date: 01/31/20 Encounter Time: 09:00 Subjective: overnight, had a fair prep. this morning, complains of mild abdominal pain after colonoscopy. otherwise no complaints - Objective Vital Signs & Weight: Vital Signs (12 hours) Temp Pulse Resp BP Pulse Ox 01/31/20 15:40 97.6 F 66 16 140/73 98 01/31/20 11:56 97.6 F 67 16 157/82 H 98 01/31/20 10:15 97.6 F 72 16 165/77 H 97 Weight Admit Weight 202 lb Weight 202 lb I&O: 01/30/20 01/31/20 02/01/20 06:59 06:59 06:59 Intake Total 4522 Balance 4522 Result Diagrams: 01/31/20 04:59 01/31/20 04:59 Additional Labs: Accuchecks 01/31/20 01/31/20 01/31/20 15:42 11:57 08:40 POC Glucose 185 H 69 L 73 01/31/20 01/30/20 05:16 20:24 POC Glucose 88 191 H Hospitalist ROS - Review of Systems Constitutional: denies: fever, chills, sweats, weakness, malaise, other Respiratory: denies: cough, dry, shortness of breath, hemoptysis, SOB with excertion, pleuritic pain, sputum, wheezing, other Cardiovascular: denies: chest pain, palpitations, orthopnea, paroxysmal noc. dyspnea, edema, light headedness, other Gastrointestinal: reports: abdominal pain. denies: nausea, vomiting, diarrhea, constipation, melena, hematochezia, other - Medication Medications: Active Medications Generic Name Dose Route Start Last Admin Trade Name Freq PRN Reason Stop Dose Admin Hydrocodone Bitart/Acetaminophen 1 tab 01/30/20 16:50 01/30/20 20:19 [place] 5/325 PO 1 tab Q4H PRN Administration Moderate Pain (4-6) Aspirin 81 mg 01/31/20 09:00 01/31/20 11:57 Aspirin Chewable PO 81 mg DAILY SHANNON Administration Enoxaparin Sodium 30 mg 01/31/20 09:00 01/31/20 11:58 Lovenox SC 30 mg 0900 SHANNON Administration Rosuvastatin Calcium 20 mg 01/31/20 09:00 01/31/20 11:57 Crestor PO 20 mg DAILY SHANNON Administration Sodium Chloride 10 ml 01/30/20 21:00 01/31/20 10:40 Flush - Normal Saline IVF Not Given Q12HR SHANNON - Exam General Appearance: NAD, awake alert Heart: RRR, no murmur, no gallops Respiratory: CTAB, no wheezes, no rales, no ronchi Gastrointestinal: soft, tender to palpation, distended Hosp A/P (1) Rectal mass Code(s): K62.89 - OTHER SPECIFIED DISEASES OF ANUS AND RECTUM Status: Acute (2) Heart failure Code(s): I50.9 - HEART FAILURE, UNSPECIFIED Status: Acute (3) CAD (coronary artery disease) Code(s): I25.10 - ATHSCL HEART DISEASE OF [place] CORONARY ARTERY W/O ANG PCTRS Status: Chronic Qualifiers: Coronary Disease-Associated Artery/Lesion type: [place] artery [place] vs. transplanted heart: [place] heart Associated angina: without angina Qualified Code(s): I25.10 - Atherosclerotic heart disease of [place] coronary artery without angina pectoris (4) DM type 2 (diabetes mellitus, type 2) Status: Chronic Qualifiers: Diabetes mellitus joint terminal attack controller insulin use: without joint terminal attack controller use Diabetes mellitus complication status: with unspecified complications - Plan -s/p colonoscopy -pain management s/p colonoscopy -stool softeners to prevent obstruction -CT chest w/ w/o contrast per GI recs
[2020-01-31] MEDS: Senokot S 8.6-50 MG TAB PO SCH (20:15)
[2020-01-31] MEDS: HYDROcodone/Acetaminophen 5/325 mg Tablet PO PRN (22:12)
[2020-01-31] MEDS: Sodium Chloride 0.9% 1,000 ML IV SCH (22:13)
[2020-02-01] MEDS: HYDROcodone/Acetaminophen 5/325 mg Tablet PO PRN ×2 (07:17→19:20)
[2020-02-01] MEDS: Sodium Chloride 0.9% 1,000 ML IV SCH (07:18)
--- NOTE | 2020-02-01 07:35 | CT ---
CT CHEST WITH CONTRAST: INDICATION: Assess for metastatic cancer. FINDINGS: Linear opacification in the right lung base is seen posteriorly. The lungs otherwise appear clear. There is mild stranding seen in both lung bases posteriorly. No pulmonary mass or nodule. No effusi on. Mediastinum unremarkable. Upper abdomen unremarkable. Osseous structures unremarkable. IMPRESSION: Linear atelectasis in the right lung base and linear stranding in both posterior bases. No acute pro cess. No evidence of pulmonary mass or nodule. POS: AGW
[2020-02-01] MEDS: Senokot S 8.6-50 MG TAB PO SCH ×2 (08:17→20:47)
[2020-02-01] MEDS: Polyethylene Glycol 3350 17 GM Packet PO SCH (08:17)
[2020-02-01] MEDS: Rosuvastatin 20 MG TAB PO SCH (08:17)
[2020-02-01] MEDS: Enoxaparin Sodium 30 MG/0.3 ML SYRINGE SC SCH (08:17)
[2020-02-01] MEDS: Aspirin Chewable 81 MG TAB PO SCH (08:17)
[2020-02-01] MEDS: HumaLOG 300 UNITS/3 ML VIAL SC PRN ×2 (11:12→20:47)
--- NOTE | 2020-02-01 12:28 | PDOC.HOSPP ---
- Subjective Encounter Date: 02/01/20 Encounter Time: 10:00 Subjective: no overnight events. This morning, feels well, pain resolved, and has no complaints. - Objective Vital Signs & Weight: Vital Signs (12 hours) Temp Pulse Resp BP Pulse Ox 02/01/20 10:51 98.6 F 71 12 137/71 95 02/01/20 07:09 98.1 F 74 12 145/83 H 95 02/01/20 04:04 98.2 F 66 18 130/84 98 Weight Admit Weight 202 lb Weight 202 lb I&O: 01/31/20 02/01/20 02/02/20 06:59 06:59 06:59 Intake Total 4522 1100 240 Balance 4522 1100 240 Result Diagrams: 01/31/20 04:59 01/31/20 04:59 Additional Labs: Accuchecks 02/01/20 02/01/20 01/31/20 10:58 05:21 21:23 POC Glucose 239 H 100 258 H 01/31/20 01/31/20 15:42 08:40 POC Glucose 185 H 73 Hospitalist ROS - Review of Systems Constitutional: denies: fever, chills, sweats, weakness, malaise, other Respiratory: denies: cough, dry, shortness of breath, hemoptysis, SOB with excertion, pleuritic pain, sputum, wheezing, other Cardiovascular: denies: chest pain, palpitations, orthopnea, paroxysmal noc. dyspnea, edema, light headedness, other Gastrointestinal: denies: nausea, vomiting, abdominal pain, diarrhea, constipation, melena, hematochezia, other - Medication Medications: Active Medications Generic Name Dose Route Start Last Admin Trade Name Freq PRN Reason Stop Dose Admin Hydrocodone Bitart/Acetaminophen 1 tab 01/30/20 16:50 02/01/20 07:17 [place] 5/325 PO 1 tab Q4H PRN Administration Moderate Pain (4-6) Aspirin 81 mg 01/31/20 09:00 02/01/20 08:17 Aspirin Chewable PO 81 mg DAILY SHANNON Administration Enoxaparin Sodium 30 mg 01/31/20 09:00 02/01/20 08:17 Lovenox SC 30 mg 0900 SHANNON Administration Sodium Chloride 1,000 mls @ 100 mls/hr 01/31/20 20:00 02/01/20 07:18 Normal Saline 0.9% IV 1,000 mls .Q10H SHANNON Administration Insulin Human Lispro 0 units 01/30/20 21:07 02/01/20 11:12 Humalog SC 3 unit .MILD SLIDING SCALE PRN Administration Mild Correctional Scale Polyethylene Glycol 17 gm 02/01/20 09:00 02/01/20 08:17 Miralax PO 17 gm DAILY SHANNON Administration Rosuvastatin Calcium 20 mg 01/31/20 09:00 02/01/20 08:17 Crestor PO 20 mg DAILY SHANNON Administration Senna/Docusate Sodium 1 tab 01/31/20 21:00 02/01/20 08:17 Senokot S PO 1 tab BID SHANNON Administration Sodium Chloride 10 ml 01/30/20 21:00 02/01/20 08:18 Flush - Normal Saline IVF 10 ml Q12HR SHANNON Administration - Exam General Appearance: NAD, awake alert Heart: RRR, no murmur, no gallops, no rubs, normal peripheral pulses Respiratory: CTAB, no wheezes, no rales, no ronchi, normal chest expansion, no tachypnea, normal percussion Gastrointestinal: soft, non-tender, non-distended, normal bowel sounds, no palpable masses, no hepatomegaly, no splenomegaly, no bruit Extremities: no edema Hosp A/P (1) Rectal mass Code(s): K62.89 - OTHER SPECIFIED DISEASES OF ANUS AND RECTUM Status: Acute (2) Heart failure Code(s): I50.9 - HEART FAILURE, UNSPECIFIED Status: Acute (3) CAD (coronary artery disease) Code(s): I25.10 - ATHSCL HEART DISEASE OF [place] CORONARY ARTERY W/O ANG PCTRS Status: Chronic Qualifiers: Coronary Disease-Associated Artery/Lesion type: [place] artery [place] vs. transplanted heart: [place] heart Associated angina: without angina Qualified Code(s): I25.10 - Atherosclerotic heart disease of [place] coronary artery without angina pectoris (4) DM type 2 (diabetes mellitus, type 2) Status: Chronic Qualifiers: Diabetes mellitus exterminator insulin use: without mcc use Diabetes mellitus complication status: with unspecified complications - Plan #Rectal mass resulting in partial bowel obstruction -s/p colonoscopy; CT thorax negative for malignancy -patient on scheduled bowel regimen to avoid obstruction; had 1 moderate sized, loose bowel movement (01/31) -pending biopsy results; GI onboard
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
--- NOTE | 2020-02-01 20:17 | CON ---
DATE OF CONSULTATION: REASON FOR CONSULT: Rectal adenocarcinoma. HISTORY OF PRESENT ILLNESS: Mr. Palafox is a 69-year-old Chinese-speaking only gentleman, who presented to the emergency room last week with abdominal pain and discomfort. He underwent a CT of the abdomen and pelvis on January 16, which showed some abnormal colonic wall thickening. He was referred to GI in the outpatient setting and was seen by Dr. Mcarthur on January 28. He noted on rectal exam, a firm circumferential narrowing of the upper part of the rectum. Colonoscopy was scheduled in the outpatient setting. However, the patient apparently could not come up with the cost of procedure and presented to the emergency room instead for suprapubic pain. He did undergo a colonoscopy yesterday. There was a high-grade stricture with stenosis seen at the proximal rectum extending from 10 to 20 cm past the anal verge. Biopsies confirmed invasive poorly differentiated adenocarcinoma. The patient is recovering nicely and has been passing gas and taking p.o. without any issues. He denies any hematuria, melena, or hematochezia. He had a chest CT which showed no evidence of metastatic disease. We were asked to see the patient regarding our opinion on treatment. History was obtained using rental sales representative through [employer]. PAST MEDICAL HISTORY: Insulin-dependent diabetes. PAST SURGICAL HISTORY: Cardiac cath. ALLERGIES: NO KNOWN DRUG ALLERGIES. HOME MEDICATIONS: 1. Aspirin 81 mg daily, insulin b.i.d. 2. Crestor daily and Januvia daily. FAMILY HISTORY: Brother had a recent abdominal surgery with colostomy and reversal. SOCIAL HISTORY: , has children live in [place] and are grown. No alcohol, tobacco, or illicit drug use. REVIEW OF SYSTEMS: A 10-point review of systems is negative. PHYSICAL EXAMINATION: VITAL SIGNS: Temperature is 98.6, pulse 71, respiratory rate 12, BP is 137/71. He is 95% on room air. GENERAL: This is a well-developed, well-nourished male, in no acute distress. HEENT: Normocephalic, atraumatic. Pupils are equal and reactive to light. NECK: Supple. CV: Regular rate and rhythm. LUNGS: Clear. ABDOMEN: Soft and nontender. Bowel sounds are positive. EXTREMITIES: No clubbing or cyanosis. SKIN: No rash. HEMATOLOGICAL: No petechiae or purpura. NEUROLOGICAL: Nonfocal. PERTINENT LABS AND X-RAYS: Current WBCs are 8.4, hemoglobin 12.3, hematocrit 38.9, platelet count is 206,000, 75% neutrophils, 13% lymphocytes. PT is 12.9, INR is 1, PTT is 30.7. Sodium 142, potassium 3.7, chloride is 106, CO2 is 28, BUN is 7, creatinine 0.77, calcium 9.2, magnesium 1.8, bilirubin 0.3, AST is 30, ALT is 21, alkaline phosphatase is 65. Serum total protein is 6.6, albumin 3.7, globulin 2.9. Lipase was 11. Urine is negative for bacteria. Radiology per HPI. ASSESSMENT: Newly diagnosed invasive adenocarcinoma of the sigmoid and proximal rectum. DISCUSSION: The patient appears to have no evidence of metastatic disease. He may have potentially resected bowel disease. The surgeon has been consulted for their opinion. If he may need chemotherapy or radiation therapy at some point based on discussion with other consultants, will do MMR MSI testing on the biopsy and check CEA. The patient can be discharged home if no further intervention is planned to follow up in our clinic. He will likely be discussed at [facility] and further recommendations made at that time. Thank you for the consult. Job ID: [id number]
[2020-02-02 05:25] LABS: Hemoglobin A1c 11.9 % (4.0-6.0)
[2020-02-02] MEDS: Senokot S 8.6-50 MG TAB PO SCH (07:24)
[2020-02-02] MEDS: Polyethylene Glycol 3350 17 GM Packet PO SCH (07:24)
[2020-02-02 07:46] VITALS: BP 160/77; TEMP 97.9
[2020-02-02] MEDS: Aspirin Chewable 81 MG TAB PO SCH (08:04)
[2020-02-02] MEDS: HYDROcodone/Acetaminophen 5/325 mg Tablet PO PRN (08:04)
[2020-02-02] MEDS: Rosuvastatin 20 MG TAB PO SCH (08:04)
[2020-02-02 08:05] LABS: #Eosinphils 0.5 thou/uL (0.0-0.7); #Lymphocytes 1.3 thou/uL (1.20-3.40); #Monocytes 0.7 thou/uL (0.11-0.59); #Neutrophils 4.5 thou/uL (1.40-6.50); %Basophils 0.4 % (0.0-1.0); %Eosinophils 6.6 % (0.0-10.0); %Lymphocytes 18.6 % (21.0-51.0); %Monocytes 9.6 % (0.0-10.0); %Neutrophils 64.8 % (42.0-75.0); Hemoglobin 12.5 g/dL (14.0-18.0); Mean Corpuscular HGB CONC 32.5 g/dL (32.0-36.0); Mean Corpuscular Hemoglobin 28.3 pg (27.0-31.0); Mean Corpuscular Volume 86.9 fL (78.0-98.0); Mean Platelet Volume 8.3 fL (7.4-10.4); Platelet Count 219 thou/uL (130-400); Red Blood Cell (RBC) Count 4.42 mill/uL (4.70-6.10); White Blood Cell (WBC) Count 6.9 thou/uL (4.8-10.8)
[2020-02-02] MEDS: Enoxaparin Sodium 30 MG/0.3 ML SYRINGE SC SCH (08:06)
[2020-02-02 08:26] LABS: Anion Gap 14 mmol/L (10-20); BUN (Urea Nitrogen) 7 mg/dL (8.4-25.7); Calc. Creatinine Clearance 111 mL/min (70-130); Calcium 9.3 mg/dL (7.8-10.44); Carbon Dioxide 22 mmol/L (23-31); Chloride 107 mmol/L (98-107); Estimated GFR-MDRD Greater than 90; Glucose 140 mg/dL (83-110); Potassium 3.8 mmol/L (3.5-5.1); Sodium 139 mmol/L (136-145)
--- NOTE | 2020-02-02 12:24 | DIS ---
DATE OF ADMISSION: 01/30/2020 DATE OF DISCHARGE: 02/02/2020 CONSULTANTS: 1. Gastroenterology, Dr. Medina and Dr. Ascencio. 2. Oncology, Nishi Brock, nurse practitioner. 3. General Surgery, Dr. Soni. MEDICATIONS: Reconciled at discharge. New medications; 1. Tylenol 500 mg q.6 hours p.r.n. for pain. 2. Tramadol 50 mg t.i.d. p.r.n., moderate to severe pain, dispense 15 tablets. 3. MiraLAX once daily. Medications to resume; 1. Aspirin 81 mg daily. 2. Insulin Novolin 70/30, 30 units twice daily. 3. Crestor 20 mg daily. 4. Januvia 100 mg daily. FINAL DIAGNOSES: 1. 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 2. Nausea, vomiting, abdominal pain, and constipation secondary to above, resolved. SECONDARY DIAGNOSES: 1. Type 2 diabetes mellitus, uncontrolled. 2. Reported history of heart failure. 3. Coronary artery disease with history of STEMI and stent placement to LAD 4. Nephrolithiasis 5. Diverticulosis. 6. Nephrolithiasis. 7. Dyslipidemia, unknown control. HISTORY OF PRESENT ILLNESS: Mr. Palafox is a 69-year-old male, who presented to the emergency room with history of abdominal pain and constipation that was diagnosed as diverticulitis. He was treated with antibiotics as an outpatient; however, the symptoms persisted and worsened and he re-presented to the ER. On evaluation, the patient was admitted for further evaluation. HOSPITAL COURSE: The patient was evaluated by GI and underwent colonoscopy, which found a mass, the biopsy consistent with invasive poorly differentiated adenocarcinoma. The mass was seen 10 to 20 cm past the anal verge, circumferential. There were also other biopsies and polyps removed. After the diagnosis of adenocarcinoma, Oncology was consulted who evaluated the patient here. The plan is for followup in the clinic, as the patient does not have any evidence of metastatic disease based on a negative CT of the chest. The patient was evaluated by General Surgery, Dr. Soni, who recommends treatment with chemotherapy and radiation prior to surgical intervention. In planning for chemotherapy in the future, echocardiogram was performed, however, the result was not obtained prior to discharge. The patient will need to obtain results from either Oncology or his Primary Care Physician. The patient has been on a GI soft diet with MiraLAX once a day and has tolerated this well. He reports minimal abdominal pain that has responded to infrequent use of [place]. Because of resolution of symptoms, a plan for followup in the outpatient setting with Oncology and cleared by General Surgery, the patient does meet criteria for discharge home. PHYSICAL EXAMINATION: VITAL SIGNS: On day of discharge, blood pressure 160/77 over the past 24 hours , it has ranged from 128/62 to 160/77; temp 97.9; pulse 66; respirations 14; and sat 97% on room air. GENERAL: Awake, alert, responsive, in no apparent distress. Able to speak in regular sentences. LUNGS: Clear to auscultation bilateral with good air movement. HEART: Normal S1 and S2. Regular rate and rhythm. No significant murmur. ABDOMEN: Soft with present bowel sounds. Nontender. EXTREMITIES: No edema. MO FINDINGS AND TEST RESULTS: CBC; 6.9, 12.5, 38.4, 219. Chemistry; 139, 3.8, 107, 22, 7, 0.79, 140. Hemoglobin A1c is 11.9. Carcinoembryonic antigen 21.86. Liver function tests on 01/29; T-bilirubin 0.3, AST 30, ALT 21, alkaline phosphatase 65, total protein 6.6, albumin 3.7. Urinalysis present, glucose greater than [address] chest performed on January 30, linear atelectasis in the right lung base and linear stranding in both posterior bases. No acute process. No evidence of pulmonary mass or nodule. Surgical biopsy specimen, large intestine polyp, tubular adenoma; small intestine polyp unremarkable; large intestine, sigmoid polyp, tubular adenoma; large intestine, rectal mass, invasive poorly differentiated adenocarcinoma. CT abdomen and pelvis performed on January 24 shows marked perirectal fat stranding with some enlarged lymph nodes, no evidence for an identifiable drainable abscess. The marked colonic wall thickness is somewhat better demonstrated on this postcontrast study with marked lumen diameter narrowing. No significant improvement, favor an extensive rectal neoplasm. Of note that was performed on January 24. FOLLOW-UP Followup is with the Cancer Clinic. The patient has the phone number to call and schedule an appointment for next week. Followup for the results of the echocardiogram either through the Cancer Clinic, primary care provider, or if Cardiology consultation is recommended, followup there. Follow up with General Surgery, Dr. [place] as directed by the Cancer Clinic. PENDING STUDIES: Echocardiogram - results from Cancer Clinic or Primary Care. DIET: Soft. ACTIVITY: As tolerated. DISCHARGE DISPOSITION: Home CODE STATUS: Full Reviewed this hospitalization, the importance of followup, the diagnosis, to seek care precautions with the patient through a stroboscope operator (per hospital protocol). The patient demonstrates understanding and agrees. No questions or further needs at end of evaluation. TIME SPENT: Total time coordinating discharge is 35 minutes. Job ID: [id number] MTDD
--- NOTE | 2020-02-04 05:29 | PQF ---
SHARIF LI DENA [id number] [facility] A 3332 [id number] CLINICAL DOCUMENTATION CLARIFICATION FORM: POST DISCHARGE Addendum to original discharge summary date: ____ Late entry note date: __ DATE:02/04/2020 ATTN: Karen Dia Please exercise your independent, professional judgment in responding to the clarification form. Clinical indicators are provided on the bottom of this form for your review Please check appropriate box(s): HEART FAILURE: A. TYPE: [ ] Systolic / HFrEF [ ] Diastolic / HFpEF [ XX ] Combined Systolic / Diastolic B. ACUITY [ ] Acute [ ] Acute on Chronic [ XX ] Chronic [ ] Other diagnosis [ ] Unable to determine In addition, please specify: Present on Admission (POA): [ XX ] Yes [ ] No [ ] Unable to determine For continuity of documentation, please document condition throughout progress notes and discharge summary. Thank You. CLINICAL INDICATORS - SIGNS / SYMPTOMS / LABS Vital signs 01/29 BP 156/81, Pulse 80, Resp 18, Temp 98.6 H&P p4 01/29 Rhonda Hutton based on echo, EF 40-45% and evidecen of diastolic dysfunction H&P p4 01/29 Rhonda Hutton Euvolemic on exam H&P p4 01/29 CHF mixed vlass II TTE 02/01 Impression EF is visually estimated at 35-40%, grade 1/[address] of chest p1 01/31 Linear opacification in the right lung base is seen posteriorly CT of chest p1 01/31 no effusion PN p4 01/31 Extremities:no edema RISKS: H&P p3 01/29 69 year-old Male H&P p3 01/29 CAD H&P p3 01/29 DM type 2 Consult 01/29 HTN Discharge summary p1 02/01 Hx of STEMI s/p Stent Discharge summary p1 02/01 HLD TREATMENTS: DEC 04 Crestor 20mg oral DEC 04 Lovenox 30mg SC TTE02/01 Katie Johnson Chest X-ray 01/29 (This form is maintained as a part of the permanent medical record) 2014 [email or web address]. All Rights Reserved [email or web address]
--- NOTE | 2020-02-04 05:30 | PQF ---
SHARIF LI DENA [id number] [facility] A 3332 [id number] CLINICAL DOCUMENTATION CLARIFICATION FORM: POST DISCHARGE Addendum to original discharge summary date: ____ Late entry note date: __ DATE:02/04/2020 ATTN: Karen Dia Please exercise your independent, professional judgment in responding to the clarification form. Clinical indicators are provided on the bottom of this form for your review Please check appropriate box(s): [ ] Hyponatremia [ XX ] Abnormal Laboratory findings not clinically significant [ ] Other diagnosis [ ] Unable to determine In addition, please specify: Present on Admission (POA): [ ] Yes [ ] No [ ] Unable to determine For continuity of documentation, please document condition throughout progress notes and discharge summary. Thank You. CLINICAL INDICATORS - SIGNS / SYMPTOMS/ LABS are present in the medical record: Laboratory 01/29 Sodium 135, Glucose 204, POC glucose 191 Laboratory 01/30 Sodium 142, Glucose 74, POC glucose 88 H&P p1 01/29 Dr Ellis presents for progressively worsening abdominal pain and constipation RISK FACTORS H&P p3 01/29 69 year-old Male H&P p3 01/29 CAD H&P p3 01/29 DM type 2 H&P p4 01/29 CHF mixed class II Consult p1 01/29 HTN Discharge summary p1 02/01 Invasive poorly diff adenocarcinoma of large intestine TREATMENT MAR 01/29 IVD Sodium Chloride 1L Laboratory monitoring-Collected 01/29 (This form is maintained as a part of the permanent medical record) 2014 [email or web address]. All Rights Reserved [email or web address]
== END 2020-02-02 11:10 | disposition home or self-care (01) | DRG 375 ==
LOC: ERS 10:18 → SURG A 13:31
PROVIDERS: ADMIT Internal Medicine; ATTEND Internal Medicine
PROC: 0DBP8ZX Excision of Rectum, Via Natural or Artificial Opening Endoscopic, Diagnostic (ICD-10-PCS; principal; 2020-01-31)
PROC: 0DBB8ZX Excision of Ileum, Via Natural or Artificial Opening Endoscopic, Diagnostic (ICD-10-PCS; 2020-01-31)
PROC: 0DBH8ZZ Excision of Cecum, Via Natural or Artificial Opening Endoscopic (ICD-10-PCS; 2020-01-31)
PROC: 0DBN8ZZ Excision of Sigmoid Colon, Via Natural or Artificial Opening Endoscopic (ICD-10-PCS; 2020-01-31)
DX: C19 Malignant neoplasm of rectosigmoid junction (principal); I50.42 Chronic combined systolic (congestive) and diastolic (congestive) heart failure; E11.65 Type 2 diabetes mellitus with hyperglycemia; I25.10 Atherosclerotic heart disease of native coronary artery without angina pectoris; N20.0 Calculus of kidney; K57.30 Diverticulosis of large intestine without perforation or abscess without bleeding; E78.5 Hyperlipidemia, unspecified; K62.89 Other specified diseases of anus and rectum; D12.0 Benign neoplasm of cecum; D12.5 Benign neoplasm of sigmoid colon; K63.89 Other specified diseases of intestine; I11.0 Hypertensive heart disease with heart failure; Z79.82 Long term (current) use of aspirin; I25.2 Old myocardial infarction; Z95.5 Presence of coronary angioplasty implant and graft; Z79.4 Long term (current) use of insulin; Z79.899 Other long term (current) drug therapy
CPT/HCPCS: 36415; 36416; 71260; 80048; 80053; 81003; 82378; 83036; 83690; 83735; 85025; 85610; 85730; 88305; 93306; 96374; 96375; J1650; J2001; J2270; J2405; J2704; Q9967

== ENCOUNTER 2020-05-20 01:07 | Inpatient (IN) | payer MEDICARE, OTHER ==
[2020-05-20] MEDS ORDERED: DISCONTINUE PREVIOUS NARCOTIC PAIN MEDICATIONS AND BENZODIAZEPINES FS SCH (04:59)
[2020-05-20] MEDS ORDERED: Propofol BOLUS 1,000 MG/100 ML VIAL IV PRN (04:59)
[2020-05-20] MEDS ORDERED: Lorazepam 2 MG/ML VIAL SLOW IVP PRN (04:59)
[2020-05-20] MEDS ORDERED: Fentanyl BOLUS 250 ML IVPB PRN (04:59)
[2020-05-20] MEDS: fentaNYL Citrate/PF 2,000 MCG in Sodium Chloride 0.9% 60 ML IV SCH (05:15)
--- NOTE | 2020-05-20 05:35 | PDOC.HHP ---
Hospitalist HPI - History of Present Illness sob History of Present Illness: during my evaluation patient was sedated and intubated. most of the history taken from EMR and ED records Case of an 69y/o male with pmhx of colon ca, DM, hld cad and htn who comes to hospital transfer from due to dyspnea requiring intubation. patient with a recent admission to hospital where he had a nstemi and underwent CABG, during recovery patient developed renal failure requiring h/d but patient refuse. he was instructed about complication and what was going to happened if he did not wish to continue to h/d he had refered to understand and was discharge apparently with hospice this was on 05/16. family members refer that since discharge patient has been worsening with increasing dyspnea until today when he started with altered mental stated. ems were called and initially patient refused to be transfered but later was brought to hospital where he was intubated and transfer to this institution for further evaluation and management. Hospitalist ROS - Review of Systems ROS unobtainable: due to endotracheal tube - Medication Medications: Active Medications Generic Name Dose Route Start Last Admin Trade Name Freq PRN Reason Stop Dose Admin Fentanyl Citrate 2,000 mcg/ 100 mls @ 0 mls/hr 05/20/20 04:59 05/20/20 05:15 Sodium Chloride IV 06/19/20 04:59 100 mls INF SHANNON Administration Protocol Per Protocol Hospitalist History - Past Surgical History Past Surgical History: reports: CABG - Family History Other Family History: unable to asses due to MV - Social History Other Social History: unable to asses due to mv - Exam General - other findings: sedated Eye: PERRL, anicteric sclera ENT: normocephalic atraumatic, no oropharyngeal lesions Neck: supple, symmetric, no thyromegaly, JVD Heart: RRR, no murmur, no gallops Respiratory: no wheezes, no ronchi, rales Gastrointestinal: soft, non-tender, non-distended, normal bowel sounds Extremities: no cyanosis, no clubbing, 2+ LE edema Skin: normal turgor, no rashes Neurological: cranial nerve grossly intact Musculoskeletal: normal tone, normal strength Psychiatric - other findings: sedated Hospitalist H&P A/P - Problem (1) Acute respiratory failure requiring reintubation Code(s): J96.00 - ACUTE RESPIRATORY FAILURE, UNSP W HYPOXIA OR HYPERCAPNIA Status: Acute (2) Acute on chronic systolic (congestive) heart failure Code(s): I50.23 - ACUTE ON CHRONIC SYSTOLIC (CONGESTIVE) HEART FAILURE Status : Acute (3) Renal failure Status: Acute (4) Hyponatremia Code(s): E87.1 - HYPO-OSMOLALITY AND HYPONATREMIA Status: Acute (5) Hyperkalemia Code(s): E87.5 - HYPERKALEMIA Status: Acute (6) Elevated troponin level Code(s): R79.89 - OTHER SPECIFIED ABNORMAL FINDINGS OF BLOOD CHEMISTRY Status : Acute (7) SIRS (systemic inflammatory response syndrome) Code(s): R65.10 - SIRS OF NON-INFECTIOUS ORIGIN W/O ACUTE ORGAN DYSFUNCTION Status: Acute - Plan Plan: 69y/o male with the stated pmhx who had a recent admission where he had a cabg developed renal failure and was sent home on hospice, who returns brought by family members due to sob decompensated heart failure - recent 2d echo 15% ef - likely secondary to fluid overload due to renal failure - unclear how much urine if any he passes. will start lasix bid - beta mary beth -cardiology evaluation -cxr with pulmonary edema - 3k bnp respiratory failure requiring intubation - likely secondary to fluid overload - f/u abgs - moveman consulted renal failure / hyponatremia / hyperkalemia - urget h/d - burr bench hand consulted elevated troponin - could be downtrend due to recent cabg, esrd or heart failure - will continue to trend - cardiology sirs - unclear source - could be secondary to stress - will cover cefepime and vanc - f/u blood cultures - covid 19 negative - u/a unavailable
[2020-05-20] MEDS ORDERED: CEFEPIME IVPB PRN (05:51)
[2020-05-20] MEDS ORDERED: VANCOMYCIN IVPB PRN (05:51)
[2020-05-20 06:04] LABS: Hemoglobin 10.3 g/dL (14.0-18.0); Mean Corpuscular HGB CONC 32.7 g/dL (32.0-36.0); Mean Corpuscular Hemoglobin 29.1 pg (27.0-31.0); Mean Corpuscular Volume 88.7 fL (78.0-98.0); Mean Platelet Volume 7.5 fL (7.4-10.4); Platelet Count 325 thou/uL (130-400); RBC Distribution Width 15.2 % (11.5-14.5); Red Blood Cell (RBC) Count 3.55 mill/uL (4.70-6.10); White Blood Cell (WBC) Count 21.2 thou/uL (4.8-10.8)
[2020-05-20 06:29] LABS: Band 4 % (5-11); MDiff Complete? YES; Monocytes 3 % (0-10); Neutrophil 93 % (42-75)
[2020-05-20 06:45] LABS: Actual Bicarbonate (HCO3a) 17.7 mEq/L (22-28); Base Excess (BEa) -8.4 mEq/L (-2.0 to +3.0); CO2 Tension 38.5 mmHg (35.0-45.0); Calcium, Ionized (arterial) 1.09 mmol/L (1.12-1.30); Carboxyhemoglobin (COHb) 0.3 gm% (0.0-3.0); Hemoglobin (Hb) 10.5 g/dL (14.0-18.0); O2 Tension (PaO2), arterial 116.2 mmHg (> 70.0); Potassium - ABG Lab 6.57 mmol/L (3.70-5.30); pH, Arterial 7.28 (7.35-7.45)
[2020-05-20] MEDS ORDERED: Vancomycin HCl 1.25 GM in Sodium Chloride 0.9% 250 ML 250 ML IVPB SCH (06:45)
[2020-05-20] MEDS ORDERED: Vancomycin HCl 750 MG in Sodium Chloride 0.9% 250 ML 250 ML IVPB SCH (06:45)
[2020-05-20] MEDS ORDERED: Vancomycin Sliding Scale 1 EACH FS ONE (06:45)
[2020-05-20] MEDS ORDERED: Cefepime 0.5 GM, Admixture Fee 1 EACH in Sodium Chloride 0.9% 100 ML IVPB SCH (06:45)
[2020-05-20] MEDS ORDERED: Vancomycin 1 GM in Premix Bag 1 BAG IVPB SCH (06:45)
[2020-05-20] MEDS ORDERED: Vancomycin 1.5 GRAM/300 ML BAG 1.5 GM in Premix Bag 1 BAG IVPB SCH (06:45)
[2020-05-20] MEDS ORDERED: HOLD VANCOMYCIN FOR LEVEL >20 FS SCH (06:45)
[2020-05-20 06:55] LABS: ALT (SGPT) 18 U/L (8-55); AST (SGOT) 22 U/L (5-34); Albumin 3.5 g/dL (3.4-4.8); Alkaline Phosphatase 110 U/L (40-110); Anion Gap 25 mmol/L (10-20); BUN (Urea Nitrogen) 119 mg/dL (8.4-25.7); Bilirubin, Total 0.5 mg/dL (0.2-1.2); Calc. Creatinine Clearance 10 mL/min (70-130); Calcium 8.6 mg/dL (7.8-10.44); Carbon Dioxide 15 mmol/L (23-31); Chloride 88 mmol/L (98-107); Estimated GFR-MDRD 5; Globulin 3.2 g/dL (2.4-3.5); Glucose 205 mg/dL (83-110); Magnesium 2.6 mg/dL (1.6-2.6); Protein, Total 6.7 g/dL (5.8-8.1); Sodium 121 mmol/L (136-145)
[2020-05-20 07:05] LABS: Potassium 6.7 mmol/L (3.5-5.1)
[2020-05-20 07:25] LABS: HBSAB Concentration Less than 8.00 mIU/mL; HBSAg Index 0.16 S/CO (0-0.99); Hep B Core Total Ab Non-Reactive (NonReactive); Hep B Surf AB Non-Reactive (NonReactive); Hep B Surf Ag Non-Reactive S/CO (NonReactive); Hep C IgG Ab Non-Reactive (NonReactive); Hep C Index 0.06 S/CO (0-0.79)
[2020-05-20 07:28] LABS: Troponin I 0.264 ng/mL (< 0.028)
[2020-05-20] MEDS: Furosemide 40 MG/4 ML VIAL SLOW IVP SCH ×2 (07:29→15:22)
[2020-05-20 08:00] LABS: Puncture Site LRA
[2020-05-20 08:01] LABS: ALV-art Gradient 548.675 (0-20)
[2020-05-20] MEDS ORDERED: Insulin Regular 300 UNITS/3 ML VIAL SC SCH (08:15)
[2020-05-20] MEDS ORDERED: Calcium Gluc 4.6 MEQ/10 ML (100 MG/ML) SLOW IVP SCH (08:15)
[2020-05-20] MEDS ORDERED: Dextrose 50% Abboject 50 ML SYRINGE SLOW IVP SCH ×2 (08:15→19:15)
[2020-05-20] MEDS ORDERED: Activase 2 MG VIAL CATH SCH (08:15)
[2020-05-20] MEDS ORDERED: Sterile Water 10 ML VIAL IVP SCH (08:15)
[2020-05-20] MEDS: Famotidine/PF 20 mg/2ml Vial SLOW IVP SCH (09:52)
[2020-05-20] MEDS: Carvedilol 3.125 MG TAB PO SCH ×2 (09:53→20:21)
[2020-05-20] MEDS: Enoxaparin Sodium 30 MG/0.3 ML SYRINGE SC SCH (09:53)
[2020-05-20] MEDS: Aspirin Chewable 81 MG TAB PO SCH (09:53)
[2020-05-20 10:05] LABS: Troponin I 0.296 ng/mL (< 0.028)
[2020-05-20] MEDS: Propofol 1,000 MG/100 ML VIAL IV PRN ×3 (10:09→23:50)
[2020-05-20] MEDS ORDERED: Heparin 10,000 UNITS/ 10 ML VIAL ONE (10:40)
--- NOTE | 2020-05-20 10:48 | CON ---
DATE OF CONSULTATION: 05/20/2020 REASON FOR CONSULTATION: Hyperkalemia and acute renal failure. HISTORY OF PRESENT ILLNESS: A 69-year-old male patient with known history of ischemic cardiomyopathy with EF of about 15% to 20%; severe coronary artery disease, status post recent CABG; and acute renal failure; who was recently discharged from this hospital to hospice, now readmitted on admission from [place] [facility] due to acute respiratory failure requiring intubation. During prior hospitalization, the patient post CABG developed acute renal failure due to acute tubular necrosis. Cardiorenal syndrome was considered, given severely depressed cardiac dysfunction. The patient was on dobutamine, but later insisted on leaving the hospital. He was later discharged home on hospice. As per relatives, the patient reportedly developed worsening shortness of breath and swelling since discharge and later developed mental status change, hence EMS was called. The patient was taken to [place], where he was found to be in respiratory distress, hence was started on BiPAP. He also was found to have markedly elevated BUN and creatinine, and due to associated mental status change, uremic encephalopathy was made. The patient also had hyperkalemia and emergent dialysis was to be undertaken. Right groin temporary dialysis catheter was placed, but the patient soon developed worsening respiratory distress and was intubated and subsequently transferred over here for further evaluation and treatment. On arrival here, the initial labs showed potassium of 6.7 and sodium of 121. BUN is 119 and creatinine is 9.92. Potassium also is 6.7. The patient was unable to provide any history due to condition. OBJECTIVE: VITAL SIGNS: Temperature 98, pulse 88, respiratory rate 18, SpO2 of 99% on ventilator, and blood pressure is 115/69. GENERAL: Elderly male, sedated. HEENT: Normocephalic, atraumatic. ET tube is in place. CARDIOVASCULAR: Regular rhythm and rate with normal heart sounds 1 and 2. RESPIRATORY: Ventilator transmitted breath sounds noted. GI: Obese, soft. Bowel sound noted. UROGENITAL: Zambrano catheter is in place. EXTREMITIES: Moderate edema of the extremities noted. SUPERVISOR DOPING: The patient is sedated. DIAGNOSTIC DATA: Most recent chemistry at 05:43 a.m. showed sodium 121, potassium 6.7, chloride 88, CO2 is 15, BUN 119, creatinine 9.92, glucose 205, calcium 8.6, magnesium 2.6, total bilirubin 0.5, AST 22, ALT 18, alkaline phosphatase 118, total protein 6.7, albumin 3.5, globulin 3.2. CBC this morning showed WBC count of 21.2, hemoglobin of 10.3, MCV of 88.7, and platelet of 325. Arterial blood gas this morning showed pH of 7.28, pCO2 of 38, pO2 of 116.2, base excess of minus 8.4, and ionized calcium of 1.09. Chest x-ray performed earlier today at [facility] showed bilateral airspace disease, cardiomegaly, as well as post CABG changes. No pneumothorax was noted. On May 16, 2020, when the patient was discharged from the hospital, sodium was 130, potassium 3.7, chloride 96, CO2 was 22, BUN 73, creatinine 4.26, glucose 126, and calcium 8.5. ASSESSMENT: 1. Hyperkalemia. Due to acute renal failure and worsening acidosis. Potassium is 6.7. EKG showed no acute changes. However, the patient is at increased risk due to ischemic cardiomyopathy. 2. Acute renal failure: Due to acute tubular necrosis. Cardiorenal syndrome may have been contributory. 3. Anasarca/fluid overload. 4. Acute respiratory failure, most likely due to congestive heart failure exacerbation from fluid overload. Acute pneumonic process cannot be ruled out as the patient has features of systemic inflammatory response. 5. Hyponatremia: Most likely due to chronic kidney disease and cardiac decompensation with depleted effective intravascular space associated with appropriate ADH secretion. 6. Worsening metabolic acidosis due to acute renal failure. 7. Anemia. 8. Severe ischemic cardiomyopathy with EF of 15% to 20%. 9. Severe coronary artery disease, status post recent CABG. 10. Colon cancer. PLAN: 1. We will treat hyperkalemia emergently with calcium gluconate, dextrose with insulin. We will follow up with emergent hemodialysis. However, at this point, recently placed temporary dialysis catheter is malfunctioning. We have yet it is not functioning. We will get exchange of the catheter and follow up with emergent hemodialysis for volume control, electrolyte correction, metabolic acidosis, and treatment of hyperkalemia. 2. We will continue to monitor electrolytes and correct as indicated. 3. We will monitor intake and output. 4. Further treatment as per green energy marketing analyst and other specialties. Many thanks for involving us. We will follow along with you. Job ID: [id number]
[2020-05-20] MEDS ORDERED: Lidocaine 1% (PF) 30 ML VIAL ONE (11:46)
[2020-05-20] MEDS ORDERED: Lidocaine 1% (PF) 30 ML VIAL IJ SCH (13:00)
[2020-05-20] MEDS: DOBUTamine 500 mg/250 ml 500 MG in Premix Bag 1 BAG IVPB SCH (15:26)
--- NOTE | 2020-05-20 16:17 | RAD ---
EXAM: CHEST ONE VIEW HISTORY: CHF COMPARISON: 05/20/2020 at 1341 hours. FINDINGS: Endotracheal tube and nasogastric tubes remain in place. Median sternotomy wires are again seen. Card iac silhouette is enlarged with pulmonary vascular congestion. Increased interstitial and alveolar opacities are again seen within the lungs bilaterally similar to the prior exam. Bilateral pleural ef fusions are again seen. No other interval change. IMPRESSION: Stable chest with findings suggesting CHF and pulmonary edema with small bilateral pleural effusions.
[2020-05-20 16:38] LABS: Anion Gap 20 mmol/L (10-20); BUN (Urea Nitrogen) 83 mg/dL (8.4-25.7); Calc. Creatinine Clearance 13 mL/min (70-130); Calcium 8.8 mg/dL (7.8-10.44); Carbon Dioxide 22 mmol/L (23-31); Chloride 90 mmol/L (98-107); Estimated GFR-MDRD 7; Glucose 180 mg/dL (83-110); Potassium 5.4 mmol/L (3.5-5.1); Sodium 127 mmol/L (136-145)
[2020-05-20 16:43] LABS: Band 5 % (5-11); Hemoglobin 9.9 g/dL (14.0-18.0); Lymphocytes 1 % (21-51); MDiff Complete? YES; Mean Corpuscular HGB CONC 32.8 g/dL (32.0-36.0); Mean Corpuscular Hemoglobin 28.5 pg (27.0-31.0); Mean Corpuscular Volume 86.8 fL (78.0-98.0); Mean Platelet Volume 7.6 fL (7.4-10.4); Monocytes 2 % (0-10); Neutrophil 92 % (42-75); Ovalocytes SLIGHT = 2-5 cells (100X) (0-1/hpf); Platelet Count 302 thou/uL (130-400); Platelet Morphology Comment Appears Adequate; Polychromasia SLIGHT = 2-3 cells (100X) (0-2/hpf); RBC Distribution Width 15.2 % (11.5-14.5); Red Blood Cell (RBC) Count 3.46 mill/uL (4.70-6.10); Target Cells SLIGHT = 2-5 cells (100X) (0-1/hpf); Tear Drops SLIGHT = 2-5 cells (100X) (0-1/hpf); White Blood Cell (WBC) Count 15.3 thou/uL (4.8-10.8)
--- NOTE | 2020-05-20 19:09 | PDOC.EVN ---
Event Note - Event Note Event Note: The patient was seen and examined. He was still intubated. Patient' s dialysis catheter was clogged and this had to be changed. He then finished dialysis. Patient is anuric. Physical exam: vitals: stable CV: RRR, no murmurs, rubs, gallops Lungs: bilateral rales Abdomen: very distended, firm to palpation, nontende Ext; edema Labs: K 6.7 improved to 5.4 WBC 15.3 Hb 9.9 Sodium 121 to 127 Creatinine 7.7 Troponing 0.296 ChestX ray: CHF and pulmonary edema This is 69 year old male who presented with acute renal failure and acute hypoxic respiratory failure requiring intubation Acute hypoxic respiratory failure secondary to cardiogenic shock/pulmonary edema from ESD - currently intubated - he received dialysis with 2.5L fluid removed. Was also given lasix with no urine output - started on dobutamine drip - troponins are elevated, ECHO has been ordered Hyperkalemia - potassium is 6.7 and improved to 5.4. Will give another insulin 10 and dextrose. Repeat BMP in am Hyponatremia - secondary to hypervolemia - improved with sodium up to 127. Trend BMP in the morning New diagnosis of ESRD - started on dialysis, nephrology is following Anemia -Hb 9.9, check folate and B12 in am
[2020-05-20] MEDS ORDERED: Insulin Regular 300 UNITS/3 ML VIAL IVP SCH (19:30)
--- NOTE | 2020-05-20 23:36 | CON ---
DATE OF CONSULTATION: 05/20/2020 HISTORY OF PRESENT ILLNESS: Mr. Palafox is a 69-year-old male, who is intubated. He has an ejection fraction of 15%. He recently had coronary artery bypass grafting. Apparently, he has been short of breath, was taken to [facility], where he was started on BiPAP. A dialysis catheter was placed. I suspect while the patient was supine, he became more distressed and required intubation. The dialysis catheter is nonfunctional when he got here and I am told it was not in the femoral vein. This has since been replaced. Remarkable for being hospitalized here until May 16. He is discharged 05/16 and was admitted 04/29. He had presented with a non-ST elevation AK. Underwent cardiac catheterization showing multivessel disease. Coronary artery bypass grafting was performed on the . He had issues with postop or perioperative heart failure. The patient declined dialysis and stated that he wanted to go home and if he is going to require dialysis. His renal function apparently was quite poor at discharge. Palliative Care was consulted. Hospice was consulted. DNR out of hospital was filled out. Somehow, he was intubated at [facility] and is now full code again. PAST MEDICAL HISTORY: Remarkable for; 1. Diabetes. 2. Lipid disorder. 3. History of coronary stenting on 05/11. 4. History of diverticulitis. 5. History of chemoradiation for rectal cancer. FAMILY HISTORY: Negative for lung disease in early age. SOCIAL HISTORY: He is a nonsmoker and nondrinker currently. ALLERGIES: HE HAS NO DRUG ALLERGIES. REVIEW OF SYSTEMS: Ten point review of systems not obtainable. PHYSICAL EXAMINATION: GENERAL: Mechanically ventilated, sedated for ventilation. VITAL SIGNS: Blood pressure 113/91, heart rate 82, and respiratory rates in the teens. HEAD AND NECK: Unremarkable. LUNGS: Remarkable for crackles bilaterally. HEART: Regular rhythm. His sternum appears to be healing nicely. ABDOMEN: Soft and nontender. EXTREMITIES: Without clubbing, cyanosis, or edema. LABORATORY DATA: White count 21.2, hemoglobin 10.3, and platelets 325. Sodium 121, potassium 6.7, chloride 88, bicarb 15, BUN 119, and creatinine 9.92. Creatinine was 4.26 four days ago. IMPRESSION AND PLAN: 1. Renal failure, now being dialyzed. 2. Volume overloaded. 3. Systolic cardiomyopathy with ejection fraction 15%. 4. [id number] do not resuscitate paper signed last admission. I feel this is fairly straightforward. I do not feel he is acutely infected. He is currently being dialyzed, although this was stated to be clearly not consistent with his wishes last admission. He is not weanable until his volume status improves. We will check a chest x- ray in the morning. His acid-base disorder is likely related to his renal failure. His pH was 7.28 this morning. CO2 is 38 and pO2 is 116. I suspect his blood gas will be normal tomorrow. CRITICAL CARE TIME: 30 minutes. Job ID: [id number] MTDD
[2020-05-21 04:18] LABS: Hemoglobin 8.8 g/dL (14.0-18.0); Mean Corpuscular HGB CONC 33.1 g/dL (32.0-36.0); Mean Corpuscular Hemoglobin 28.4 pg (27.0-31.0); Mean Corpuscular Volume 85.7 fL (78.0-98.0); Mean Platelet Volume 7.8 fL (7.4-10.4); Platelet Count 267 thou/uL (130-400); RBC Distribution Width 15.3 % (11.5-14.5); White Blood Cell (WBC) Count 15.3 thou/uL (4.8-10.8)
[2020-05-21] MEDS: Propofol 1,000 MG/100 ML VIAL IV PRN ×4 (05:05→21:15)
[2020-05-21] MEDS: Furosemide 40 MG/4 ML VIAL SLOW IVP SCH ×2 (05:05→15:10)
[2020-05-21 05:29] LABS: Anion Gap 21 mmol/L (10-20); BUN (Urea Nitrogen) 95 mg/dL (8.4-25.7); Calc. Creatinine Clearance 12 mL/min (70-130); Calcium 8.7 mg/dL (7.8-10.44); Carbon Dioxide 21 mmol/L (23-31); Chloride 89 mmol/L (98-107); Estimated GFR-MDRD 6; Glucose 149 mg/dL (83-110); Potassium 5.6 mmol/L (3.5-5.1); Sodium 125 mmol/L (136-145)
[2020-05-21] MEDS: DOBUTamine 500 mg/250 ml 500 MG in Premix Bag 1 BAG IVPB SCH ×2 (05:55→22:35)
--- NOTE | 2020-05-21 06:35 | CON ---
DATE OF CONSULTATION: 05/20/2020 REASON FOR CONSULTATION: Heart failure. HISTORY OF PRESENT ILLNESS: Mr. Palafox is a pleasant 69-year-old gentleman, who comes to the hospital for altered mentation. He was in the hospital for the last 2 weeks. He came in about 2 weeks ago with volume overload. He was found to have new-onset cardiomyopathy, EF at about 20%. He was diuresed adequately. His kidney function was not normal, but his baseline creatinine was about 1.9 to 2.1. He did well after diuresis. He was able to lay flat, eventually was taken to the catheterization lab, where he was found to have multivessel disease. He eventually received coronary artery bypass grafting and did well like 2 or 3 days postoperatively. Suddenly, he started having increased creatinine. He could not be diuresed anymore. Initial thought was that he was a little bit dry, so he was given IV fluids without significant improvement. He continued to creep up. Eventually, he became very volume overloaded, so he was started on Lasix again. He would not pee and his creatinine continued to rise. He at that point, decided he wanted to go home. We recommended that he needed dialysis to be started pretty soon as he was significantly volume overload and his kidneys would not react. He refused dialysis at that point and decided to go home on hospice. At home, he continued to get worse and worse. Within few days, he was extremely short of breath, became altered and 911 was called. He was brought in, had to be intubated to protect his airway and he has since been started on dialysis. He was significantly volume overloaded on this admission. On my evaluation, Mr. Palafox remains sedated and intubated. He just had about a liter and a half taken out from dialysis. He is hemodynamically stable. PAST MEDICAL HISTORY: 1. History of rectal cancer, currently awaiting treatment, pending cardiac improvement. 2. Coronary artery disease, multivessel disease. 3. Ischemic cardiomyopathy, severe EF at about 15% to 20%. 4. Type 2 diabetes. 5. History of nephrolithiasis. 6. Diverticulitis in the past. 7. in the past. 8. Hyperlipidemia. 9. Proteinuria. PAST SURGICAL HISTORY: 1. 2008 stenting to the LAD. 2. Heart catheterization more recently. 3. Coronary artery bypass grafting about a week and a half ago. SOCIAL HISTORY: No alcohol, tobacco, or drugs. FAMILY HISTORY: Positive for early coronary artery disease. OUTPATIENT MEDICATIONS: On this admission: 1. Isordil, which is isosorbide dinitrate 10 mg twice a day. 2. Lasix twice a day IV. 3. Hydralazine 10 mg three times a day. 4. Lidocaine patch. 5. Crestor 20 mg a day. 6. Januvia. 7. Lantus 70 units subcu daily. ALLERGIES: NO KNOWN DRUG ALLERGIES. REVIEW OF SYSTEMS: Unobtainable as the patient is sedated and intubated. PHYSICAL EXAMINATION: VITAL SIGNS: Temperature 98.1, pulse 82, respiratory rate 12, saturating 98% on 100% FiO2, and blood pressure 113/91. GENERAL: He is sedated and intubated. NECK: Supple. LUNGS: Have crackles at the bases. CARDIOVASCULAR: S1 and S2. No S3 or S4. There is a grade 2/6 systolic murmur at the right upper sternal border. ABDOMEN: Soft. There is a positive ascitic wave. EXTREMITIES: 2+ edema. SKIN: Warm and dry. LABORATORY DATA: Laboratory work was reviewed. White count of 21, hemoglobin 10, hematocrit of 31, and platelet count of 325. ABG was reviewed. Chemistries were reviewed. On admission, sodium was 121, likely hypervolemic hyponatremia; potassium was 6.7; gap was 25; BUN of 119; and creatinine was 9.9. Troponin was 0.2 and 0.2. GFR was 5. TSH was normal. Hepatitis B surface antigen and core antigens and antibodies were all nonreactive. Hepatitis C antibody nonreactive. ASSESSMENT: 1. Acute on chronic systolic heart failure. 2. Severe ischemic cardiomyopathy, ejection fraction at 15% to 20%. 3. Multivessel coronary artery disease. 4. Recent CABG. 5. Rectal cancer. 6. Acute kidney injury on chronic kidney disease. 7. Hyperkalemia. PLAN: 1. Agree with emergent dialysis. This has already happened. 2. Unlikely that he will be able to diurese fully with IV diuresis only. Continue dialysis until more euvolemic. 3. We will help his hemodynamics by adding dobutamine. Even though his blood pressure is fine, his heart is very weak and his forward flow will be a lot better on an inotrope. 4. Continue supportive care. Thank you for letting us participate in the care of your patient. 45 minutes of critical care time. Job ID: [id number] JENNIFER
[2020-05-21] MEDS: Famotidine/PF 20 mg/2ml Vial SLOW IVP SCH (07:28)
[2020-05-21] MEDS: Aspirin Chewable 81 MG TAB PO SCH (07:28)
[2020-05-21] MEDS: Carvedilol 3.125 MG TAB PO SCH ×2 (07:28→21:15)
[2020-05-21 07:38] LABS: Actual Bicarbonate (HCO3a) 22.3 mEq/L (22-28); Base Excess (BEa) -2.6 mEq/L (-2.0 to +3.0); CO2 Tension 38.4 mmHg (35.0-45.0); Carboxyhemoglobin (COHb) 0.3 gm% (0.0-3.0); Hemoglobin (Hb) 9.4 g/dL (14.0-18.0); O2 Tension (PaO2), arterial 101.7 mmHg (> 70.0); Potassium - ABG Lab 5.58 mmol/L (3.70-5.30); pH, Arterial 7.38 (7.35-7.45)
--- NOTE | 2020-05-21 09:13 | OP ---
DATE OF PROCEDURE: 05/20/2020 MEDICATIONS: 1% lidocaine. PROCEDURE: Placement of right femoral dialysis catheter. INDICATION: Severe acute kidney injury with severe hyperkalemia. DESCRIPTION OF PROCEDURE: After informed consent was obtained, the patient's old femoral dialysis catheter was prepped and draped and initial attempt was made to replace this catheter over wire. However, it became evident that the original catheter was not actually in the right blood vessel and not sure if the catheter was actually still in the lumen of the vessel. Therefore, decision was taken to remove this catheter entirely and with a purse string suturing, the exit site was secured for hemostasis. With the aid of ultrasound guidance, the right femoral vein was cannulated and isolated with a wire. After serial dilatation, a Trialysis catheter was placed and all the ports were evaluated for good flow. Therefore, the patient's to initiate dialysis. The patient tolerated the procedure very well and insignificant blood loss. Job ID: [id number]
[2020-05-21] MEDS ORDERED: Heparin 10,000 UNITS/ 10 ML VIAL ONE (10:06)
[2020-05-21 10:35] LABS: Puncture Site LRA
[2020-05-21 11:02] LABS: Vancomycin, Random 16.9 ug/mL (See Comment)
[2020-05-21] MEDS: Enoxaparin Sodium 30 MG/0.3 ML SYRINGE SC SCH (13:27)
[2020-05-21] MEDS: fentaNYL Citrate/PF 2,000 MCG in Sodium Chloride 0.9% 60 ML IV SCH (13:29)
[2020-05-21] MEDS: Folic Acid 0.4 MG in Admixture Fee 1 EACH SC SCH (13:30)
--- NOTE | 2020-05-21 13:59 | PDOC.PALCO ---
Palliative Care Consult - Consult Details Requesting Physician: Dr Benjamin Reason for Consult: goals of care, family support, complex decision-making - Pertinent HPI Mr Palafox is a 69 year old male who is familiar to Palliative Care. Recently discharged from [facility] and elected to transition to Hospice to manage symptoms related to terminal condition as he elected to not pursue dialysis and any further treatment. CABG previous hospital stay and reported ejection fraction of 15%. He lives in a private home setting with his , the property insurance agent services have been utilized in the past to communicate illness and discuss goal of care. Lengthy conversations were also carried out with Mr Palafox's niece. Mr Maki was admitted to hospice, he began to have shortness of breath which was being managed. Family called EMS. As per EMS report and hospice communication Mr Palafox refused transport. His symptoms elevated and family called EMS again, increase in altered mental status. Mr Palafox was subsequently transported to the hospital and intubated. Admitted to CCU and currently receiving dialysis. - Pertinent PMH Diabetes, History of colorectal cancer, renal failure, recent CABG, HDL, HTN - Social History Smoking: no tobacco exposure Alcohol Use: none Drug Use History: none Living Situation: independent, - Medications MAR Reviewed: Yes - Allergies Allergies/Adverse Reactions: Allergies Allergy/AdvReac Type Severity Reaction Status Date / Time No Known Drug Allergies Allergy Verified 05/20/20 05:25 - Subjective Sedated, intubated on mechanical ventilation. Receiving dialysis. - ROS Non Response: due to endotracheal tube, due to mental status - Objective Vital Signs: Vital Signs - Most Recent Temp Pulse Resp BP Pulse Ox 98.2 F 78 18 117/67 96 05/21/20 12:00 05/21/20 10:44 05/21/20 12:00 05/21/20 10:44 05/20/20 08:00 Palliative Performance Scale: 20 - Physical Exam Constitutional: encephalitic, ill appearing HEENT: moist MMs Deviation from normal: Mechanical ventilation, adventicious lung sounds bilaterally Cardiovascular: RRR Gastrointestinal: continent, soft, non-tender Genitourinary: chery catheter Musculoskeletal: no clubbing, no edema Deviation from normal: sedated Skin: cap refill <2 seconds Deviation from normal: Healing surgical wound to chest Deviation from normal: encephalopathic - Problem List (1) Acute respiratory failure requiring reintubation Code(s): J96.00 - ACUTE RESPIRATORY FAILURE, UNSP W HYPOXIA OR HYPERCAPNIA Current Visit: Yes Status: Acute (2) Acute on chronic systolic (congestive) heart failure Code(s): I50.23 - ACUTE ON CHRONIC SYSTOLIC (CONGESTIVE) HEART FAILURE Current Visit: No Status: Acute (3) Palliative care encounter Code(s): Z51.5 - ENCOUNTER FOR PALLIATIVE CARE Current Visit: No Status: Acute (4) Renal failure Current Visit: No Status: Acute (5) DM type 2 (diabetes mellitus, type 2) Current Visit: No Status: Chronic - Plan/Recommendations Plan: Lengthy conversation to patients eloina Drew [phone]. Reviewed understanding expressed wishes of Mr Palafox related to dialysis, end of life care and recent events leading to current intubation and dialysis. Patient is sami speaking only. Attempting to arrange a family meeting 05/22 to discuss Goal of Care related to patient known expressed wishes. Viki is to communicate with family and establish a time then let Palliative Care know. Ethics consult placed Spiritual care Communicated with Dr Dejesus [55] minutes spent on this encounter with >50% of the time in counseling and coordination of care. Thank you for this very appropriate consult.
--- NOTE | 2020-05-21 14:34 | PDOC.HOSPP ---
- Subjective Encounter Date: 05/21/20 Encounter Time: 09:30 Subjective: The patient is still intubated. He is scheduled to get dialysis again today . Not followin commands for me - Objective Vital Signs & Weight: Vital Signs (12 hours) Temp Pulse Resp BP 05/21/20 14:14 81 114/68 05/21/20 12:00 98.2 F 18 05/21/20 10:44 78 117/67 05/21/20 10:00 18 05/21/20 08:00 18 05/21/20 07:14 86 118/72 05/21/20 07:00 98.0 F 05/21/20 04:00 97.7 F Weight Admit Weight 231 lb Weight 227 lb 4.745 oz Most Recent Monitor Data Heart Rate from ECG 80 NIBP 107/63 NIBP BP-Mean 77 Respiration from ECG 18 SpO2 98 I&O: 05/20/20 05/21/20 05/22/20 06:59 06:59 06:59 Intake Total 788.8 120 Output Total 0 300 Balance 0 488.8 120 Result Diagrams: 05/21/20 03:55 05/21/20 03:55 Additional Labs: Accuchecks 05/21/20 05/20/20 04:08 21:28 POC Glucose 157 H 308 H Hospitalist ROS - Review of Systems ROS unobtainable: due to endotracheal tube - Medication Medications: Active Medications Generic Name Dose Route Start Last Admin Trade Name Freq PRN Reason Stop Dose Admin Aspirin 81 mg 05/20/20 09:00 05/21/20 07:28 Aspirin Chewable PO 81 mg DAILY SHANNON Administration Carvedilol 3.125 mg 05/20/20 09:00 05/21/20 07:28 Coreg PO 3.125 mg BID SHANNON Administration Enoxaparin Sodium 30 mg 05/20/20 09:00 05/21/20 13:27 Lovenox SC Not Given 0900 SHANNON Famotidine 20 mg 05/20/20 09:00 05/21/20 07:28 Pepcid SLOW IVP 20 mg 0900 SHANNON Administration Furosemide 40 mg 05/20/20 06:00 05/21/20 05:05 Lasix SLOW IVP 40 mg 0600,1400 SHANNON Administration Fentanyl Citrate 2,000 mcg/ 100 mls @ 0 mls/hr 05/20/20 04:59 05/21/20 13:29 Sodium Chloride IV 06/19/20 04:59 100 mls INF SHANNON Administration Protocol Per Protocol Dobutamine HCl/Dextrose 500 mg 250 mls @ 15.78 mls/hr 05/20/20 15:30 05:55 / Device IVPB 250 mls INF SHANNON Administration Protocol 5 MCG/KG/MIN Folic Acid 0.4 mg/ 0.08 mls @ 0 mls/hr 05/21/20 09:00 05/21/20 13:30 Miscellaneous Medication SC 0.08 mls DAILY SHANNON Administration Propofol 1,000 mg 05/20/20 04:59 05/21/20 10:20 Diprivan IV 06/19/20 04:59 1,000 mg INF PRN Administration TO ACHIEVE GOAL RASS Protocol - Exam General - other findings: sedated Eye: PERRL, anicteric sclera ENT: normocephalic atraumatic, no oropharyngeal lesions Neck: no JVD Heart: RRR, no murmur, no gallops, no rubs Respiratory - other findings: bilateral rales Gastrointestinal - other findings: firm, distended, hypoactive bowel sounds, no tenderness Extremities: 2+ LE edema Skin: normal turgor, no lesions, no rashes Neurological: cranial nerve grossly intact, normal sensation to touch, no focal deficits, no new deficit Hosp A/P - Plan This is 69 year old male who presented with acute renal failure and acute hypoxic respiratory failure requiring intubation Acute hypoxic respiratory failure secondary to cardiogenic shock/pulmonary edema from ESD - currently intubated - he received dialysis with 2.5L fluid removed. He is to get another dialysis today - he is still on dobutamine drip - ECHO results are pending Hyperkalemia - potassium down to 5.6. Was given insulin and dextrose last night. Patient getting dialysis this am, will repeat BMP in afternoon Hyponatremia - secondary to hypervolemia - sodium down to 125, plan to get another dialysis today. Repeat BMP in afternoon New diagnosis of ESRD - started on dialysis, however patient did not want dialysis. Palliative to meet with ethics this afternoon regarding discussion of hospice Folate deficiency Anemia - started folic acid supplementation Dispo: still intubated, family meeting at 11 am tomorrow
--- NOTE | 2020-05-21 14:48 | PDOC.PALFU ---
Palliative Care Follow-up Note Family agreeable to meeting 05/22/2020 at 11am. HospitalistLeonila RN caring for patient and Spiritual care aware.
--- NOTE | 2020-05-21 16:55 | PDOC.CPN ---
- Subjective Date: 05/21/20 Time: 16:51 Interval history: No new issues. Remains intubated. - Review of Systems ROS unobtainable: due to endotracheal tube - Objective Allergies/Adverse Reactions: Allergies Allergy/AdvReac Type Severity Reaction Status Date / Time No Known Drug Allergies Allergy Verified 05/20/20 05:25 Visit Medications: Current Medications Aspirin (Aspirin Chewable) 81 mg PO DAILY [facility] Last Admin: 05/21/20 07:28 Dose: 81 mg Carvedilol (Coreg) 3.125 mg PO BID [facility] Last Admin: 05/21/20 07:28 Dose: 3.125 mg Enoxaparin Sodium (Lovenox) 30 mg SC 0900 [facility] Last Admin: 05/21/20 13:27 Dose: Not Given Famotidine (Pepcid) 20 mg SLOW IVP 0900 [facility] Last Admin: 05/21/20 07:28 Dose: 20 mg Furosemide (Lasix) 40 mg SLOW IVP 0600,1400 [facility] Last Admin: 05/21/20 15:10 Dose: 40 mg Fentanyl Citrate 2,000 mcg/ (Sodium Chloride) 100 mls @ 0 mls/hr IV INF [facility]; Protocol Stop: 06/19/20 04:59 Last Admin: 05/21/20 13:29 Dose: 100 mls Fentanyl Citrate (Fentanyl Bolus) 250 mls @ 0 mls/hr IVPB PRN PRN PRN Reason: Breakthrough pain/agitation Stop: 06/19/20 04:59 Vancomycin HCl 1.5 gm/ Device 300 mls @ 150 mls/hr IVPB WILLCALL SHANNON Vancomycin HCl 1.25 gm/ Sodium (Chloride) 250 mls @ 166.667 mls/hr IVPB [facility]CALL [facility] Vancomycin HCl 1 gm/ Device 200 mls @ 200 mls/hr IVPB [facility]CALL [facility] Vancomycin HCl 750 mg/ Sodium (Chloride) 250 mls @ 250 mls/hr IVPB [facility]CALL [facility] Last Admin: 05/21/20 15:55 Dose: 250 mls Cefepime HCl 0.5 gm/Miscellaneous Medication 1 each/ Sodium Chloride 100 mls @ 200 mls/hr IVPB 1600 SH[facility]ON Dobutamine HCl/Dextrose 500 mg (/ Device) 250 mls @ 15.78 mls/hr IVPB INF [facility]ON; Protocol Last Admin: 05/21/20 05:55 Dose: 250 mls Folic Acid 0.4 mg/ (Miscellaneous Medication) 0.08 mls @ 0 mls/hr SC DAILY [facility] Last Admin: 05/21/20 13:30 Dose: 0.08 mls Lorazepam (Ativan) 2 mg SLOW IVP Q1H PRN PRN Reason: Breakthrough agitation Stop: 06/19/20 04:59 Miscellaneous Medication (Pharmacy To Dose) 1 each IVPB PRN PRN PRN Reason: Pharmacy to dose Miscellaneous Medication (Pharmacy To Dose) 1 each IVPB PRN PRN PRN Reason: Pharmacy to dose Morphine Sulfate (Morphine) 2 mg SLOW IVP Q1H PRN PRN Reason: Breakthrough Pain/Agitation Stop: 06/19/20 04:59 Discontinue Previous Narcotic Pain Medications And Benzodiazepines 1 each FS .ONE SHANNON Stop: 06/19/20 04:59 Hold Vancomycin For (Level >20) 0 each FS .AT DIALYSIS [facility] Propofol (Diprivan) 1,000 mg IV INF PRN; Protocol PRN Reason: TO ACHIEVE GOAL RASS Stop: 06/19/20 04:59 Last Admin: 05/21/20 15:55 Dose: 1,000 mg Propofol (Diprivan Bolus) 20 mg IV Q5MIN PRN PRN Reason: BREAKTHROUGH AGITATION Stop: 06/19/20 04:59 Sodium Chloride (Flush - Normal Saline) 10 ml IVF PRN PRN PRN Reason: Saline Flush Vital Signs & Weight: Vital Signs Temp Pulse Resp BP 05/21/20 16:00 97.6 F 05/21/20 14:14 81 114/68 05/21/20 14:00 05/21/20 12:00 98.2 F 05/21/20 10:44 78 117/67 05/21/20 10:00 05/21/20 08:00 18 05/21/20 07:14 86 118/72 05/21/20 07:00 98.0 F Admit Weight 231 lb Weight 227 lb 4.745 oz - Physical Exam General: other (S/I) HEENT: normocephaly Neck: supple neck Cardiac: regular rate and rhythm Lungs: normal breath sounds Neuro: no lateralizing findings Abdomen: active bowel sounds Extremities: 1+ LE edema Skin: clear Musculoskeletal: normal range of motion - Labs Result Diagrams: 05/21/20 03:55 05/21/20 03:55 Troponin/CKMB Troponin I 0.296 ng/mL (< 0.028) H 05/20/20 09:26 - Telemetry Sinus rhythms and dysrhythmias: sinus rhythm - Assessment/Plan Assessment/Plan: 1. Acute on chronic systolic heart failure 2. Acute on chronic kidney injury requiring HD 3. Multivessel CAD s/p CABG 4. Severe dilated ischemic CM EF at 15-20% 5. Rectal cancer. 6. Acute hypoxic respiratory insufficiency requiring mechanical ventilation 7. Hyperkalemia, resolved. PLAN: - Continue supportive care. - Innotropic support with dobutamine low dose. - Continue HD per nephrology - Family meeting to be held tomorrow with palliative care and family to see how Mr. Palafox would have wanted to proceed.
[2020-05-21] MEDS: Cefepime 0.5 GM, Admixture Fee 1 EACH in Sodium Chloride 0.9% 100 ML IVPB SCH (18:03)
--- NOTE | 2020-05-21 18:16 | PRG ---
DATE OF SERVICE: 05/21/2020 SUBJECTIVE: Mr. Palafox remains mechanically ventilated. He is being dialyzed again today. OBJECTIVE: VITAL SIGNS: Heart rate is 90, blood pressure 119/70, respiratory rate 21. LUNGS: Clear. HEART: Regular rhythm. ABDOMEN: Soft. EXTREMITIES: Without asymmetry. LABORATORY DATA: potassium 5.6, chloride 89, bicarb 21, BUN 95, creatinine 8.34. IMPRESSION: 1. End-stage renal disease with volume overload. 2. Recent coronary artery bypass grafting. 3. Systolic ischemic cardiomyopathy with an ejection fraction of 15% to 20%. 4. History of rectal cancer in the past. 5. Pre-existing [id number] DNR prior to this admission. We will check a chest x-ray in the morning. I suspect his volume status will improve to a point we might be able to consider extubation in the morning. The issue that has to be decided is we continue dialyzing when it was his wish prior to dialysis that he would not undergo chronic hemodialysis. He is clearly somebody who will need chronic long-term hemodialysis. Critical care time 30 min. Job ID: [id number] MTDD
--- NOTE | 2020-05-21 19:14 | PRG ---
DATE OF SERVICE: 05/21/2020 SUBJECTIVE: The patient is seen and examined. OBJECTIVE: VITAL SIGNS: Afebrile, blood pressure 122/67, pulse 91, respiratory rate of 20, O2 saturations 94% on vent. CARDIOVASCULAR SYSTEM: First and second heart sounds were heard. RESPIRATORY SYSTEM: Revealed vented sounds. DIGESTIVE SYSTEM: Revealed obese abdomen. EXTREMITIES: Show some peripheral edema. SKIN: No new gross rash. LABORATORY INVESTIGATION: Showed hemoglobin of 8.8 with a white count of 15.3. Chemistry showed a sodium of 125, potassium 5.6, BUN of 25 with creatinine of 8.34. IMPRESSION: 1. Acute tubular necrosis, anuric, severe. 2. Hyperkalemia. 3. Metabolic acidosis. 4. Coronary artery disease, status post recent coronary artery bypass graft. PLAN: 1. Continue with daily dialysis. We will target to dialyze up to 3 hours today and possibly remove about 3 to 4 L. 2. Monitor hemoglobin closely. Given the recent findings, will be femoral dialysis catheter in place. If any significant drop in hemoglobin is noted, the patient will be scanned for possible retroperitoneal bleed. 3. Renally dose all medications and avoid potentially nephrotoxic agents. 4. Discontinue Lasix as ultrafiltration will be done with dialysis. 5. Further management to be dependent on the clinical course. Job ID: [id number]
[2020-05-22] MEDS: Propofol 1,000 MG/100 ML VIAL IV PRN (03:50)
[2020-05-22 04:33] LABS: Anion Gap 18 mmol/L (10-20); BUN (Urea Nitrogen) 62 mg/dL (8.4-25.7); BUN/Creatinine Ratio 10.25; Calc. Creatinine Clearance 16 mL/min (70-130); Calcium 8.3 mg/dL (7.8-10.44); Carbon Dioxide 25 mmol/L (23-31); Chloride 92 mmol/L (98-107); Estimated GFR-MDRD 9; Glucose 69 mg/dL (83-110); Phosphorus 6.6 mg/dL (2.3-4.7); Potassium 4.7 mmol/L (3.5-5.1); Sodium 130 mmol/L (136-145)
[2020-05-22 05:00] LABS: Hemoglobin 8.5 g/dL (14.0-18.0); Lymphocytes 2 % (21-51); MDiff Complete? YES; Mean Corpuscular HGB CONC 34.3 g/dL (32.0-36.0); Mean Corpuscular Hemoglobin 29.4 pg (27.0-31.0); Mean Corpuscular Volume 85.6 fL (78.0-98.0); Mean Platelet Volume 7.6 fL (7.4-10.4); Monocytes 7 % (0-10); Neutrophil 91 % (42-75); Platelet Count 234 thou/uL (130-400); RBC Distribution Width 15.3 % (11.5-14.5); Red Blood Cell (RBC) Count 2.89 mill/uL (4.70-6.10); White Blood Cell (WBC) Count 11.7 thou/uL (4.8-10.8)
[2020-05-22 07:22] LABS: Actual Bicarbonate (HCO3a) 22.1 mEq/L (22-28); Base Excess (BEa) -0.7 mEq/L (-2.0 to +3.0); CO2 Tension 29.4 mmHg (35.0-45.0); Calcium, Ionized (arterial) 1.05 mmol/L (1.12-1.30); Carboxyhemoglobin (COHb) 0.3 gm% (0.0-3.0); Hemoglobin (Hb) 9.2 g/dL (14.0-18.0); O2 Tension (PaO2), arterial 83.1 mmHg (> 70.0); Potassium - ABG Lab 4.57 mmol/L (3.70-5.30); pH, Arterial 7.49 (7.35-7.45)
[2020-05-22] MEDS: Famotidine/PF 20 mg/2ml Vial SLOW IVP SCH (07:34)
[2020-05-22] MEDS: Aspirin Chewable 81 MG TAB PO SCH (07:34)
[2020-05-22] MEDS: Carvedilol 3.125 MG TAB PO SCH ×2 (07:34→20:25)
[2020-05-22 08:19] LABS: Peep/CPAP 7.5 cmH2O; Puncture Site LRA
[2020-05-22] MEDS ORDERED: Heparin 10,000 UNITS/ 10 ML VIAL ONE (08:32)
[2020-05-22 09:37] LABS: Vancomycin, Random 23.6 ug/mL (See Comment)
--- NOTE | 2020-05-22 09:46 | RAD ---
CHEST 1 VIEW: INDICATION: History of intubation. COMPARISON: Prior exam dated 05/20/2020. IMPRESSION: The patient remains intubated with gastric catheter placement. Midline sternotomy changes, cardiomeg moisés, and pulmonary vascular congestion persist. There is improvement in the central edema pattern. Small bilateral pleural effusions persist. No pneumothorax is evident. POS: BH
[2020-05-22] MEDS: Enoxaparin Sodium 30 MG/0.3 ML SYRINGE SC SCH (14:05)
[2020-05-22] MEDS: Folic Acid 0.4 MG in Admixture Fee 1 EACH SC SCH (14:05)
[2020-05-22] MEDS: DOBUTamine 500 mg/250 ml 500 MG in Premix Bag 1 BAG IVPB SCH (14:09)
--- NOTE | 2020-05-22 15:28 | PDOC.PALPN ---
Palliative Progress Note - Subjective Awake, lethargic, sedated, receiving hemodialysis. Able to make eye contact. Weakness - Objective Vital Signs: Vital Signs - Most Recent Temp Pulse Resp BP Pulse Ox 99.3 F 90 17 121/63 95 05/22/20 13:00 05/22/20 08:32 05/22/20 08:32 05/22/20 07:15 05/22/20 08:32 - Physical Exam Constitutional: confusion, ill appearing HEENT: EOMI, moist MMs Respiratory: no wheezing, diminished lung sound Cardiovascular: RRR, diminished peripheral pulses Gastrointestinal: soft Deviation from normal: obese Genitourinary: chery catheter Deviation from normal: no record of output Musculoskeletal: no cyanosis, no clubbing Neurology: no focal deficits Deviation from normal: Healing surgical wound to chest Deviation from normal: oreinted to self - Assessment (1) Acute respiratory failure requiring reintubation Code(s): J96.00 - ACUTE RESPIRATORY FAILURE, UNSP W HYPOXIA OR HYPERCAPNIA Current Visit: Yes Status: Acute (2) Acute on chronic systolic (congestive) heart failure Code(s): I50.23 - ACUTE ON CHRONIC SYSTOLIC (CONGESTIVE) HEART FAILURE Current Visit: No Status: Acute (3) Palliative care encounter Code(s): Z51.5 - ENCOUNTER FOR PALLIATIVE CARE Current Visit: No Status: Acute (4) Renal failure Current Visit: No Status: Acute (5) DM type 2 (diabetes mellitus, type 2) Current Visit: No Status: Chronic - Plan Plan: Patient extubated. Family meeting today to revisit patient past known expressed wishes. Patient son, , Lianna Carmona and Francisco Medley from spiritual care present, Rosalinda Juares RN, and Palliative Care. Translating services used. Discussed previous discharge Goal of care and transition to home setting with Hospice. Family relayed that Mr Palafox decided he wanted to seek treatment for his symptoms as per the and son. Discussed fragile health state and family relayed currently they wished he remain with full resuscitation measures and aggressive therapies. Discussed we would revisit Goal of Care with Mr Palafox if he becomes more alert and able to make his own decisions. Family also requesting a [employer] Br[employer] come see him, being arranged by Malcolm Carmona. Spiritual Care and Palliative care will coordinate with physicians to further discuss Goal of Care with Mr Palafox when he is able to act on his own behalf, until that time we will honor the expressed decisions of his who is his surrogate decision maker. Communicated with Dr Dejesus [50] minutes spent on this encounter with >50% of the time in counseling and coordination of care. - ROS Non Response: due to mental status
[2020-05-22] MEDS ORDERED: EPOETIN ALFA-EPBX (ESRD) 3,000 UNIT/ML VIAL IVP SCH (15:45)
[2020-05-22] MEDS ORDERED: EPOETIN ALFA-EPBX (ESRD) 2,000 UNIT/ML VIAL IVP SCH (15:45)
--- NOTE | 2020-05-22 16:14 | PDOC.HOSPP ---
- Subjective Encounter Date: 05/22/20 Encounter Time: 09:30 Subjective: Patient was extubated today. He is confused, unable to answer questions. He denies pain. His chest x-ray has improved. He is still getting dialysis today. There is a family meeting that was held today. The and the son would like to continue current care until the patient is more alert and can discuss his wishes. According to the , the patient changed his mind before the ambulance was called and agreed to being admitted to the hospital. She also states that the patient wanted to see his family members in [place] and was not ready to yet. The patient extubated Patient's states that the last time he had an echo his ejection fraction was 5% and then improved to 15%. She is very optimistic that it will continue to recover given that his ejection fraction is now 20%. - Objective Vital Signs & Weight: Vital Signs (12 hours) Temp Pulse Resp BP Pulse Ox 05/22/20 13:00 99.3 F 05/22/20 08:32 90 17 95 05/22/20 08:00 17 05/22/20 07:15 86 121/63 05/22/20 07:00 98.9 F Weight Admit Weight 231 lb Weight 220 lb 10.923 oz Most Recent Monitor Data Heart Rate from ECG 92 NIBP 106/69 NIBP BP-Mean 81 Respiration from ECG 14 SpO2 100 I&O: 05/21/20 05/22/20 05/23/20 06:59 06:59 06:59 Intake Total 788.8 1565.15 179 Output Total 300 500 Balance 488.8 1065.15 179 Result Diagrams: 05/22/20 03:30 05/22/20 03:30 Additional Labs: Accuchecks 05/22/20 05/21/20 03:47 22:23 POC Glucose 74 79 Hospitalist ROS - Review of Systems Constitutional: denies: fever, chills - Medication Medications: Active Medications Generic Name Dose Route Start Last Admin Trade Name Freq PRN Reason Stop Dose Admin Aspirin 81 mg 05/20/20 09:00 05/22/20 07:34 Aspirin Chewable PO 81 mg DAILY [facility] Administration Carvedilol 3.125 mg 05/20/20 09:00 05/22/20 07:34 Coreg PO 3.125 mg BID [facility] Administration Famotidine 20 mg 05/20/20 09:00 05/22/20 07:34 Pepcid SLOW IVP 20 mg 0900 [facility] Administration Vancomycin HCl 750 mg/ Sodium 250 mls @ 250 mls/hr 05/20/20 06:45 05/21/20 15 :55 Chloride IVPB 250 mls WILLCALL [facility] Administration Cefepime HCl 0.5 gm/ 100 mls @ 200 mls/hr 05/21/20 16:00 05/21/20 18:03 Miscellaneous Medication 1 IVPB 100 mls each/ Sodium Chloride 1600 [facility] Administration Dobutamine HCl/Dextrose 500 mg 250 mls @ 15.78 mls/hr 05/20/20 15:30 14:09 / Device IVPB 250 mls INF [facility] Administration Protocol 5 MCG/KG/MIN Folic Acid 0.4 mg/ 0.08 mls @ 0 mls/hr 05/21/20 09:00 05/22/20 14:05 Miscellaneous Medication SC 0.08 mls DAILY [facility] Administration - Exam General Appearance: NAD, awake alert Eye: PERRL, anicteric sclera ENT: normocephalic atraumatic, no oropharyngeal lesions Neck: no JVD Heart: RRR, no murmur, no rubs Respiratory - other findings: diminished breath sounds bilaterally Gastrointestinal - other findings: very distended, firm to palpation Extremities: 2+ LE edema Skin: normal turgor, no lesions, no rashes Neurological: cranial nerve grossly intact, normal sensation to touch, no weakness Musculoskeletal: normal tone, normal strength, no muscle wasting Hosp A/P - Plan ECHO: EF 20-25%, akinesis of the apex Chest X ray 05/22: small bilateral pleural effusions This is 69 year old male who presented with acute renal failure and acute hypoxic respiratory failure requiring intubation Acute hypoxic respiratory failure secondary to cardiogenic shock/pulmonary edema from ESRD vs pneumonia -patient is now extubated. He is getting dialysis daily. Pulmonary edema has improved - he is still on dobutamine drip - he received dialysis with 2.5L fluid removed. He is to get another dialysis today - he is still on dobutamine drip - ECHO results are pending - continue vanc and cefepime for possible pneumonia. COVID negative New diagnosis of ESRD - started on dialysis, however patient did not want dialysis. Family meeting decided to continue dialysis for now and then reassess if patient still wants it Hyperkalemia - resolved Hyponatremia - secondary to hypervolemia - improved to 130 , continue to monitor Folate deficiency Anemia - started folic acid supplementation
--- NOTE | 2020-05-22 16:18 | PRG ---
DATE OF SERVICE: 05/22/2020 SUBJECTIVE: The patient was seen and examined, extubated, doing very well, and noted with the following vital signs. OBJECTIVE: VITAL SIGNS: Blood pressure 116/75, respiratory rate of 12, O2 saturation of 97%. HEENT: Unremarkable. CARDIOVASCULAR: First and second heart sounds were heard. RESPIRATORY: Showed a few rales. DIGESTIVE: Revealed a benign abdomen. Positive bowel sounds. EXTREMITIES: Show some peripheral edema. SKIN: No new gross rash. LYMPHATICS: No peripheral lymphadenopathy. LABORATORY INVESTIGATION: Reviewed. Hemoglobin 8.5. Chemistry showed a sodium of 130, BUN creatinine of 6.05, phosphorus 6.6. IMPRESSION: 1. Severe acute tubular necrosis, likely culminated into end-stage renal disease. 2. Coronary artery disease, status post recent bypass surgery. 3. Anemia. 4. Diabetes mellitus, type 2. 5. Morbid obesity. PLAN: 1. The patient to be dialyzed today with ultrafiltration and will likely undergo dialysis again tomorrow, and after dialysis tomorrow, we will break up this dialysis into Tuesday, Tuesday, Tuesday schedule. Once the patient is much more oriented, we will discuss the possibility of long-term dialysis depending on the wish of the patient. At which point, if the patient is willing to undergo long-term dialysis, we will make arrangement for a tunneled dialysis catheter and discontinue the current femoral dialysis catheter. 2. The patient to be started on erythropoiesis-stimulating agent to address the anemia. 3. Renally dose all medications and avoid potentially nephrotoxic agents. 4. Further management to be dependent on the clinical course. Job ID: [id number]
--- NOTE | 2020-05-22 16:46 | PRG ---
DATE OF SERVICE: 05/22/2020 SUBJECTIVE: Mr. Palafox is evaluated this morning. OBJECTIVE: GENERAL: He is in no distress. VITAL SIGNS: Heart rate is in the 90s. His blood pressure has been stable overnight. Blood pressure this afternoon is 116/58, respiratory rate is in the teens, minute volume is 7 L a minute. LUNGS: Clear. HEART: Regular rhythm. ABDOMEN: Soft. EXTREMITIES: Without edema. LABORATORY DATA: White count 11.7, hemoglobin 8.5, and platelets 234. Sodium , potassium 4.7, chloride 92, bicarb 25, BUN 62, and creatinine 6.05, glucose 69, and phosphorus 6.6. IMPRESSION AND PLAN: 1. Renal failure with volume overload. 2. Systolic cardiomyopathy with recent bypass surgery. Plan this morning was to extubate him. This was done successfully. I have looked dating since extubation he appears to be comfortable. He is being dialyzed today. We will follow as long as he is in the Critical Care Unit. Critical care time was 30 min. Job ID: [id number] MTDD
[2020-05-22] MEDS: Cefepime 0.5 GM, Admixture Fee 1 EACH in Sodium Chloride 0.9% 100 ML IVPB SCH (17:42)
--- NOTE | 2020-05-22 18:27 | PDOC.CPN ---
- Subjective Date: 05/22/20 Time: 18:25 Interval history: He was extubated earlier today but still somnolent. Breathing comfortably. - Review of Systems ROS unobtainable: due to mental status - Objective Allergies/Adverse Reactions: Allergies Allergy/AdvReac Type Severity Reaction Status Date / Time No Known Drug Allergies Allergy Verified 05/20/20 05:25 Visit Medications: Current Medications Aspirin (Aspirin Chewable) 81 mg PO DAILY [facility] Last Admin: 05/22/20 07:34 Dose: 81 mg Carvedilol (Coreg) 3.125 mg PO BID [facility] Last Admin: 05/22/20 07:34 Dose: 3.125 mg Epoetin Davi-epbx (Retacrit) 2,000 unit IVP .WILLCALL [facility] Epoetin Davi-epbx (Retacrit) 3,000 unit IVP .WILLCALL [facility]We[facility] Famotidine (Pepcid) 20 mg SLOW IVP 0900 [facility] Last Admin: 05/22/20 07:34 Dose: 20 mg Heparin Sodium (Porcine) (Heparin) 5,000 units SC BID [facility] Vancomycin HCl 1.5 gm/ Device 300 mls @ 150 mls/hr IVPB WILLCALL [facility] Vancomycin HCl 1.25 gm/ Sodium (Chloride) 250 mls @ 166.667 mls/hr IVPB [facility] Vancomycin HCl 1 gm/ Device 200 mls @ 200 mls/hr IVPB WILLCALL [facility] Vancomycin HCl 750 mg/ Sodium (Chloride) 250 mls @ 250 mls/hr IVPB WILLCALL [facility] Last Admin: 05/21/20 15:55 Dose: 250 mls Cefepime HCl 0.5 gm/Miscellaneous Medication 1 each/ Sodium Chloride 100 mls @ 200 mls/hr IVPB 1600 [facility] Last Admin: 05/22/20 17:42 Dose: 100 mls Dobutamine HCl/Dextrose 500 mg (/ Device) 250 mls @ 15.78 mls/hr IVPB INF [facility]; Protocol Last Admin: 05/22/20 14:09 Dose: 250 mls Folic Acid 0.4 mg/ (Miscellaneous Medication) 0.08 mls @ 0 mls/hr SC DAILY [facility] Last Admin: 05/22/20 14:05 Dose: 0.08 mls Miscellaneous Medication (Pharmacy To Dose) 1 each IVPB PRN PRN PRN Reason: Pharmacy to dose Miscellaneous Medication (Pharmacy To Dose) 1 each IVPB PRN PRN PRN Reason: Pharmacy to dose Morphine Sulfate (Morphine) 2 mg SLOW IVP Q1H PRN PRN Reason: Breakthrough Pain/Agitation Stop: 06/19/20 04:59 Discontinue Previous Narcotic Pain Medications And Benzodiazepines 1 each FS .ONE [facility] Stop: 06/19/20 04:59 Hold Vancomycin For (Level >20) 0 each FS .AT DIALYSIS [facility] Sodium Chloride (Flush - Normal Saline) 10 ml IVF PRN PRN PRN Reason: Saline Flush Vital Signs & Weight: Vital Signs Temp Pulse Resp BP Pulse Ox 05/22/20 16:00 98.5 F 05/22/20 13:00 99.3 F 05/22/20 08:32 90 17 95 05/22/20 08:00 17 05/22/20 07:15 86 121/63 05/22/20 07:00 98.9 F Admit Weight 231 lb Weight 220 lb 10.923 oz - Physical Exam General: no apparent distress HEENT: mucus membranes moist Neck: supple neck Cardiac: regular rate and rhythm Lungs: normal breath sounds Neuro: grossly intact Abdomen: active bowel sounds Extremities: no edema Skin: clear - Labs Result Diagrams: 05/22/20 03:30 05/22/20 03:30 Troponin/CKMB Troponin I 0.296 ng/mL (< 0.028) H 05/20/20 09:26 - Telemetry Sinus rhythms and dysrhythmias: sinus rhythm - Assessment/Plan Assessment/Plan: 1. Acute on chronic systolic heart failure 2. Acute on chronic kidney injury requiring HD 3. Multivessel CAD s/p CABG 4. Severe dilated ischemic CM EF at 15-20% 5. Rectal cancer. 6. Acute hypoxic respiratory insufficiency requiring mechanical ventilation, resolved. 7. Hyperkalemia, resolved. PLAN: - Continue supportive care. - Innotropic support with dobutamine low dose. - Continue HD per nephrology - Family decided to do everything. They want him to make more decisions once he is more awake. - I will try to talk with him and his family as to what to expect. he would need to start doing dialysis from now on if he were to survive and I think this will be the biggest decision for him. I will try to make sure he understands what that entails so he can make a better decision.
[2020-05-22] MEDS: Morphine 2 MG/ML VIAL SLOW IVP PRN (23:51)
[2020-05-23 05:36] LABS: Hemoglobin 8.3 g/dL (14.0-18.0); MDiff Complete? YES; Mean Corpuscular HGB CONC 32.7 g/dL (32.0-36.0); Mean Corpuscular Hemoglobin 28.2 pg (27.0-31.0); Mean Corpuscular Volume 86.3 fL (78.0-98.0); Mean Platelet Volume 8.1 fL (7.4-10.4); Platelet Count 222 thou/uL (130-400); RBC Distribution Width 15.2 % (11.5-14.5); Red Blood Cell (RBC) Count 2.94 mill/uL (4.70-6.10); White Blood Cell (WBC) Count 12.7 thou/uL (4.8-10.8)
[2020-05-23 05:37] LABS: Band 3 % (5-11); Eosinophils 3 % (0-10); Lymphocytes 4 % (21-51); Monocytes 15 % (0-10); Neutrophil 75 % (42-75); Platelet Morphology Comment Appears Adequate
[2020-05-23 05:41] LABS: Anion Gap 22 mmol/L (10-20); BUN (Urea Nitrogen) 53 mg/dL (8.4-25.7); BUN/Creatinine Ratio 8.82; Calc. Creatinine Clearance 16 mL/min (70-130); Calcium 8.6 mg/dL (7.8-10.44); Carbon Dioxide 23 mmol/L (23-31); Chloride 91 mmol/L (98-107); Estimated GFR-MDRD 9; Glucose 103 mg/dL (83-110); Phosphorus 7.8 mg/dL (2.3-4.7); Potassium 4.6 mmol/L (3.5-5.1); Sodium 131 mmol/L (136-145)
[2020-05-23] MEDS: DOBUTamine 500 mg/250 ml 500 MG in Premix Bag 1 BAG IVPB SCH (06:27)
--- NOTE | 2020-05-23 07:17 | PRG ---
DATE OF SERVICE: 05/23/2020 SUBJECTIVE: Smith Palafox is confused. OBJECTIVE: VITAL SIGNS: Heart rate is 92, blood pressure 119/71, and respiratory rate is 18. LUNGS: Clear anteriorly. HEART: Regular rhythm. ABDOMEN: Soft. EXTREMITIES: Without edema. LABORATORY DATA: White count 12.7, hemoglobin 8.3, and platelets 222. Sodium 131, potassium 4.6, chloride 91, bicarb 23, BUN 53, and creatinine 6. IMPRESSION: 1. Recent coronary artery bypass grafting. 2. Acute renal failure on top of chronic kidney disease. Last admission, he has had no dialysis, but I suspect family has changed their mind about this and he is being dialyzed. It is unlikely that he will have a clear enough mental status to make an informed decision. Family will be in a position to decide whether or not to continue with dialysis. He is stable from a pulmonary standpoint at this point in time. Job ID: [id number]
[2020-05-23] MEDS: Carvedilol 3.125 MG TAB PO SCH ×2 (10:22→20:57)
[2020-05-23 11:29] LABS: Vancomycin, Random 12.5 ug/mL (See Comment)
[2020-05-23] MEDS: Heparin 5,000 UNITS/ML VIAL SC SCH ×2 (12:16→20:57)
[2020-05-23] MEDS: Famotidine/PF 20 mg/2ml Vial SLOW IVP SCH (12:16)
[2020-05-23] MEDS: Folic Acid 0.4 MG in Admixture Fee 1 EACH SC SCH (12:16)
[2020-05-23] MEDS: Aspirin Chewable 81 MG TAB PO SCH (12:16)
--- NOTE | 2020-05-23 12:49 | PDOC.CPN ---
- Subjective Date: 05/23/20 Time: 12:47 Interval history: He denies angina, no SOB. He is tolerating HD. - Review of Systems General: denies: fever/chills, weight/appetite/sleep changes, night sweats, fatigue Respiratory: denies: cough, congestion, shortness of breath, exercise intolerance Cardiovascular: denies: chest pain, palpitation, edema, paroxysmal nocturnal dyspnea, orthopnea Gastrointestinal: denies: nausea, vomiting, diarrhea, constipation, abd pain, GI bleeding Musculoskeletal: denies: pain, tenderness, stiffness, swelling, arthritis/ arthralgias Neurological: denies: numbness, syncope, seizure, weakness - Objective Allergies/Adverse Reactions: Allergies Allergy/AdvReac Type Severity Reaction Status Date / Time No Known Drug Allergies Allergy Verified 05/20/20 05:25 Visit Medications: Current Medications Aspirin (Aspirin Chewable) 81 mg PO DAILY [facility] Last Admin: 05/23/20 12:16 Dose: 81 mg Carvedilol (Coreg) 3.125 mg PO BID [facility] Last Admin: 05/23/20 10:22 Dose: Not Given Epoetin Davi-epbx (Retacrit) 2,[facility]po[facility]i-[facility]bx (Retacrit) 3,[facility] Famotidine (Pepcid) 20 mg SLOW IVP 0900 [facility] Last Admin: 05/23/20 12:16 Dose: 20 mg Heparin Sodium (Porcine) (Heparin) 5,000 units SC BID [facility] Last Admin: 05/23/20 12:16 Dose: 5,000 units Vancomycin HCl 1.5 gm/ Device 300 mls @ 150 mls/hr IVPB [facility] Vancomycin HCl 1.25 gm/ Sodium (Chloride) 250 mls @ 166.667 mls/hr IVPB [facility] Vancomycin HCl 1 gm/ Device 200 mls @ 200 mls/hr IVPB [facility] Vancomycin HCl 750 mg/ Sodium (Chloride) 250 mls @ 250 mls/hr IVPB WILLCALL [facility] Last Admin: 05/21/20 15:55 Dose: 250 mls Cefepime HCl 0.5 gm/Miscellaneous Medication 1 each/ Sodium Chloride 100 mls @ 200 mls/hr IVPB 1600 [facility] Last Admin: 05/22/20 17:42 Dose: 100 mls Dobutamine HCl/Dextrose 500 mg (/ Device) 250 mls @ 15.78 mls/hr IVPB INF [facility]; Protocol Last Admin: 05/23/20 06:27 Dose: 250 mls Folic Acid 0.4 mg/ (Miscellaneous Medication) 0.08 mls @ 0 mls/hr SC DAILY [facility] Last Admin: 05/23/20 12:16 Dose: 0.08 mls Miscellaneous Medication (Pharmacy To Dose) 1 each IVPB PRN PRN PRN Reason: Pharmacy to dose Miscellaneous Medication (Pharmacy To Dose) 1 each IVPB PRN PRN PRN Reason: Pharmacy to dose Morphine Sulfate (Morphine) 2 mg SLOW IVP Q1H PRN PRN Reason: Breakthrough Pain/Agitation Stop: 06/19/20 04:59 Last Admin: 05/22/20 23:51 Dose: 2 mg Discontinue Previous Narcotic Pain Medications And Benzodiazepines 1 each FS .ONE [facility] Stop: 06/19/20 04:59 Hold Vancomycin For (Level >20) 0 each FS .AT DIALYSIS [facility] Sodium Chloride (Flush - Normal Saline) 10 ml IVF PRN PRN PRN Reason: Saline Flush Vital Signs & Weight: Vital Signs Temp 05/23/20 08:00 98.0 F 05/23/20 04:00 98.2 F Admit Weight 231 lb Weight 209 lb 7.026 oz - Physical Exam General: alert & oriented x3 HEENT: mucus membranes moist Neck: supple neck Cardiac: regular rate and rhythm Lungs: normal breath sounds Neuro: grossly intact Abdomen: active bowel sounds Extremities: no edema Skin: clear Musculoskeletal: no pain - Labs Result Diagrams: 05/23/20 04:00 05/23/20 04:00 Troponin/CKMB Troponin I 0.296 ng/mL (< 0.028) H 05/20/20 09:26 - Telemetry Sinus rhythms and dysrhythmias: sinus rhythm - Assessment/Plan Assessment/Plan: 1. Acute on chronic systolic heart failure, improved. 2. Acute on chronic kidney injury requiring HD 3. Multivessel CAD s/p CABG 4. Severe dilated ischemic CM EF at 15-20% 5. Rectal cancer. 6. Acute hypoxic respiratory insufficiency requiring mechanical ventilation, resolved. 7. Hyperkalemia, resolved. PLAN: - Innotropic support with dobutamine low dose. - Continue HD per nephrology - He is much more lucid today and able to answer all the questions appropriately. - I told him he would most likely need HD or he would not survive, if he leaves without HD he will re accumulate fluid within a week or two and be either right back in same situation or from it at home. He had questions, he wanted to know if he needed to be without food every time he needed HD and he wanted to know if he was going to be in the hospital for a week every time he needed HD. I stated he will most likely be at home and go to a dialysis center and have a 4 hour dialysis session 3 times a week and he could eat. After clarifying he actually accepts to doing outpatient HD. - He again is very anxious to go home. - Stable for tele transfer from CV perspective. - Will need lifevest before discharge.
[2020-05-23] MEDS ORDERED: Heparin 10,000 UNITS/ 10 ML VIAL ONE (13:17)
--- NOTE | 2020-05-23 13:33 | PDOC.HOSPP ---
- Subjective Encounter Date: 05/23/20 Encounter Time: 09:30 Subjective: The patient is doing well. He is more alert today. Patient denies pain or SOB. He was not aware of where he was or that he was in the hospital. He states the year is 2019, but he cannot say the month or the date. Patient states he is very hungry and wants to eat. He also is requesting to go to the bathroom . He has had a total of 12L fluid removed from dialysis - Objective Vital Signs & Weight: Vital Signs (12 hours) Temp 05/23/20 12:00 99.1 F 05/23/20 08:00 98.0 F 05/23/20 04:00 98.2 F Weight Admit Weight 231 lb Weight 209 lb 7.026 oz Most Recent Monitor Data Heart Rate from ECG 103 NIBP 124/68 NIBP BP-Mean 86 Respiration from ECG 18 SpO2 100 I&O: 05/22/20 05/23/20 05/24/20 06:59 06:59 06:59 Intake Total 1565.15 918.6 114.0 Output Total 500 Balance 1065.15 918.6 114.0 Result Diagrams: 05/23/20 04:00 05/23/20 04:00 Additional Labs: Accuchecks 05/23/20 05/22/20 04:07 22:53 POC Glucose 104 99 Hospitalist ROS - Review of Systems Constitutional: denies: fever, chills - Medication Medications: Active Medications Generic Name Dose Route Start Last Admin Trade Name Freq PRN Reason Stop Dose Admin Aspirin 81 mg 05/20/20 09:00 05/23/20 12:16 Aspirin Chewable PO 81 mg DAILY [facility] Administration Carvedilol 3.125 mg 05/20/20 09:00 05/23/20 10:22 Coreg PO Not Given BID [facility] Famotidine 20 mg 05/20/20 09:00 05/23/20 12:16 Pepcid SLOW IVP 20 mg 0900 [facility] Administration Heparin Sodium (Porcine) 5,000 units 05/23/20 09:00 05/23/20 12:16 Heparin SC 5,000 units BID [facility] Administration Vancomycin HCl 750 mg/ Sodium 250 mls @ 250 mls/hr 05/20/20 06:45 05/21/20 15 :55 Chloride IVPB 250 mls WILLCALL [facility] Administration Cefepime HCl 0.5 gm/ 100 mls @ 200 mls/hr 05/21/20 16:00 05/22/20 17:42 Miscellaneous Medication 1 IVPB 100 mls each/ Sodium Chloride 1600 [facility] Administration Dobutamine HCl/Dextrose 500 mg 250 mls @ 15.78 mls/hr 05/20/20 15:30 06:27 / Device IVPB 250 mls INF [facility] Administration Protocol 5 MCG/KG/MIN Folic Acid 0.4 mg/ 0.08 mls @ 0 mls/hr 05/21/20 09:00 05/23/20 12:16 Miscellaneous Medication SC 0.08 mls DAILY [facility] Administration Morphine Sulfate 2 mg 05/20/20 04:59 05/22/20 23:51 Morphine SLOW IVP 06/19/20 04:59 2 mg Q1H PRN Administration Breakthrough Pain/Agitation - Exam General Appearance: NAD, awake alert Eye: PERRL, anicteric sclera ENT: normocephalic atraumatic, no oropharyngeal lesions Neck: no JVD Heart: RRR, no murmur, no gallops, no rubs Respiratory: CTAB, no wheezes, no rales, no ronchi Gastrointestinal: soft Gastrointestinal - other findings: abdomen less distended, softer Extremities: 1+ LE edema Skin: normal turgor, no rashes Hosp A/P - Plan ECHO: EF 20-25%, akinesis of the apex Chest X ray 05/22: small bilateral pleural effusions This is 69 year old male who presented with acute renal failure and acute hypoxic respiratory failure requiring intubation Acute hypoxic respiratory failure secondary to cardiogenic shock/pulmonary edema from ESRD vs pneumonia -patient is extubated. He is getting dialysis daily. Pulmonary edema has improved -he is on dobutamine drip by cardiology. ECHO shows EF 20-25%. Family meeting held 05/22, they want to continue aggressive care until patient is more alert. Currently he is still confused, so continue with family wishes for now -continue vanc and cefepime. WBC currently up to 12 New diagnosis of ESRD - continue dialysis Leukocytosis - wBC up to 12, blood cultures negative, patient is anuric - on vanc and cefepime - send sputum culture if able Hyperkalemia - resolved Hyponatremia - secondary to hypervolemia -improving to 131 Folate deficiency Anemia - started folic acid supplementation
[2020-05-23] MEDS ORDERED: Epoetin (ESRD) 20,000 UNITS/ML IVP SCH (15:37)
[2020-05-23] MEDS: Cefepime 0.5 GM, Admixture Fee 1 EACH in Sodium Chloride 0.9% 100 ML IVPB SCH (17:09)
--- NOTE | 2020-05-23 18:22 | PRG ---
DATE OF SERVICE: 05/23/2020 SUBJECTIVE: The patient is seen and examined, noted with the following vital signs. OBJECTIVE: VITAL SIGNS: Afebrile, temperature 97.6, pulse 102, respiratory rate 23, O2 saturation 100%, and blood pressure 110/54. HEENT: Unremarkable. CARDIOVASCULAR SYSTEM: First and second heart sounds were heard. RESPIRATORY SYSTEM: Clear to auscultation. DIGESTIVE SYSTEM: Revealed a benign abdomen. Positive bowel sounds. EXTREMITIES: No peripheral edema. SKIN: No new gross rash. LYMPHATICS: No peripheral lymphadenopathy. LABORATORY INVESTIGATION: Showed a sodium of 131 and BUN of 53 with a creatinine of 6.01. IMPRESSION: 1. Acute on chronic kidney disease, likely has culminated into end-stage renal disease. 2. Anemia of chronic kidney disease. 3. Coronary artery disease status post recent bypass surgery. 4. Obesity. 5. Diabetes mellitus type 2. PLAN: 1. The patient to be dialyzed today and after dialysis today, the patient will now be on Tuesday, Tuesday, and Tuesday schedule dialysis. 2. From all indication, the patient is going to require long-term dialytic intervention. Otherwise, the patient will get back to the prior clinical condition that made this patient present to the hospital. 3. We will consult Surgery for tunneled dialysis catheter placement plus or minus long-term access in order to discontinue the current femoral dialysis catheter. Once the patient procures the tunneled dialysis catheter, we will likely remove the current femoral dialysis catheter. 4. Cleat Thrower consultation for outpatient dialysis placement. 5. Renally dose all medications. The patient is already on erythropoiesis stimulating agents. 6. Further management to be dependent on the clinical course. Job ID: [id number]
[2020-05-24] MEDS: DOBUTamine 500 mg/250 ml 500 MG in Premix Bag 1 BAG IVPB SCH ×3 (00:16→21:56)
[2020-05-24 05:07] LABS: Eosinophils 3 % (0-10); Hemoglobin 8.2 g/dL (14.0-18.0); Lymphocytes 7 % (21-51); MDiff Complete? YES; Mean Corpuscular HGB CONC 32.1 g/dL (32.0-36.0); Mean Corpuscular Hemoglobin 27.7 pg (27.0-31.0); Mean Corpuscular Volume 86.4 fL (78.0-98.0); Mean Platelet Volume 7.6 fL (7.4-10.4); Monocytes 15 % (0-10); Neutrophil 74 % (42-75); Platelet Count 203 thou/uL (130-400); Platelet Morphology Comment Appears Adequate; RBC Distribution Width 15.1 % (11.5-14.5); RBC Morphology Normal; Red Blood Cell (RBC) Count 2.95 mill/uL (4.70-6.10); White Blood Cell (WBC) Count 12.2 thou/uL (4.8-10.8)
[2020-05-24 05:23] LABS: Anion Gap 18 mmol/L (10-20); BUN (Urea Nitrogen) 40 mg/dL (8.4-25.7); BUN/Creatinine Ratio 8.08; Calc. Creatinine Clearance 18 mL/min (70-130); Calcium 8.6 mg/dL (7.8-10.44); Carbon Dioxide 24 mmol/L (23-31); Chloride 93 mmol/L (98-107); Estimated GFR-MDRD 12; Glucose 174 mg/dL (83-110); Potassium 4.2 mmol/L (3.5-5.1); Sodium 131 mmol/L (136-145)
[2020-05-24 05:37] LABS: HBSAB Concentration Less than 8.00 mIU/mL; HBSAg Index 0.18 S/CO (0-0.99); Hep B Core Total Ab Non-Reactive (NonReactive); Hep B Core Total Index 0.08 S/CO (0-0.79); Hep B Surf AB Non-Reactive (NonReactive); Hep B Surf Ag Non-Reactive S/CO (NonReactive); Hep C IgG Ab Non-Reactive (NonReactive); Hep C Index 0.06 S/CO (0-0.79)
[2020-05-24] MEDS: Carvedilol 3.125 MG TAB PO SCH ×2 (08:48→21:48)
[2020-05-24] MEDS: Famotidine/PF 20 mg/2ml Vial SLOW IVP SCH (08:48)
[2020-05-24] MEDS: Heparin 5,000 UNITS/ML VIAL SC SCH ×2 (08:48→21:52)
[2020-05-24] MEDS: Aspirin Chewable 81 MG TAB PO SCH (08:48)
[2020-05-24] MEDS: Folic Acid 0.4 MG in Admixture Fee 1 EACH SC SCH (08:48)
[2020-05-24] MEDS ORDERED: Dextrose 5% in Water 1,000 ML IV PRN (09:36)
[2020-05-24] MEDS ORDERED: Dextrose 50% Abboject 50 ML SYRINGE SLOW IVP PRN (09:36)
[2020-05-24] MEDS: HumaLOG 300 UNITS/3 ML VIAL SC PRN ×3 (11:33→21:51)
--- NOTE | 2020-05-24 13:20 | PRG ---
DATE OF SERVICE: 05/24/2020 SUBJECTIVE: The patient is doing reasonably well. He had no acute complaints. OBJECTIVE: VITAL SIGNS: Temperature 98, pulse 90, O2 saturation 99% on 2 L, blood pressure 125/61. HEENT: Unremarkable. NECK: No adenopathy or JVD. CHEST: Clear. CARDIAC: S1, S2. Regular. ABDOMEN: Soft. EXTREMITIES: No edema. LABORATORY DATA: White blood cell count 12, hematocrit 25, platelet count 203. BUN 40, creatinine 4.9, sodium 131. ASSESSMENT: 1. Acute renal failure. 2. Status post respiratory failure, requiring mechanical ventilation. PLAN: Respiratory status is stable. I would discontinue antibiotics after 7 days in this individual. Continue dialysis as indicated by Nephrology Service. No further recommendations. We will sign off. Job ID: [id number]
--- NOTE | 2020-05-24 16:08 | PDOC.HOSPP ---
- Subjective Encounter Date: 05/24/20 Subjective: The patient is sitting in the chair and does not appear to be in any respiratory distress today. He saturating well on nasal cannula. - Objective Vital Signs & Weight: Vital Signs (12 hours) Temp Pulse Resp BP Pulse Ox 05/24/20 11:20 98.0 F 90 16 125/61 99 05/24/20 08:22 97.7 F 93 17 128/59 L 95 Weight Admit Weight 231 lb Weight 202 lb 12.8 oz Most Recent Monitor Data Heart Rate from ECG 103 NIBP 124/68 NIBP BP-Mean 86 Respiration from ECG 18 SpO2 100 I&O: 05/23/20 05/24/20 05/25/20 06:59 06:59 06:59 Intake Total 918.6 114.0 480 Balance 918.6 114.0 480 Result Diagrams: 05/24/20 04:36 05/24/20 04:36 Additional Labs: Accuchecks 05/24/20 05/24/20 05/23/20 10:55 05:50 20:14 POC Glucose 250 H 217 H 191 H 05/23/20 16:45 POC Glucose 162 H Hospitalist ROS - Medication Medications: Active Medications Generic Name Dose Route Start Last Admin Trade Name Freq PRN Reason Stop Dose Admin Aspirin 81 mg 05/20/20 09:00 05/24/20 08:48 Aspirin Chewable PO 81 mg DAILY SHANNON Administration Carvedilol 3.125 mg 05/20/20 09:00 05/24/20 08:48 Coreg PO 3.125 mg BID SHANNON Administration Famotidine 20 mg 05/20/20 09:00 05/24/20 08:48 Pepcid SLOW IVP 20 mg 0900 SHANNON Administration Heparin Sodium (Porcine) 5,000 units 05/23/20 09:00 05/24/20 08:48 Heparin SC 5,000 units BID SHANNON Administration Vancomycin HCl 750 mg/ Sodium 250 mls @ 250 mls/hr 05/20/20 06:45 05/21/20 15 :55 Chloride IVPB 250 mls WILLCALL SHANNON Administration Cefepime HCl 0.5 gm/ 100 mls @ 200 mls/hr 05/21/20 16:00 05/23/20 17:09 Miscellaneous Medication 1 IVPB 100 mls each/ Sodium Chloride 1600 SHANNON Administration Dobutamine HCl/Dextrose 500 mg 250 mls @ 15.78 mls/hr 05/20/20 15:30 04:03 / Device IVPB 250 mls INF SHANNON Administration Protocol 5 MCG/KG/MIN Folic Acid 0.4 mg/ 0.08 mls @ 0 mls/hr 05/21/20 09:00 05/24/20 08:48 Miscellaneous Medication SC 0.08 mls DAILY SHANNON Administration Insulin Human Lispro 0 units 05/24/20 09:36 05/24/20 11:33 Humalog SC 4 unit .MODERATE SLIDING SC PRN Administration Moderate Correctional Scale Morphine Sulfate 2 mg 05/20/20 04:59 05/22/20 23:51 Morphine SLOW IVP 06/19/20 04:59 2 mg Q1H PRN Administration Breakthrough Pain/Agitation - Exam General Appearance: awake alert ENT: normocephalic atraumatic Neck: supple, no JVD Heart: RRR Respiratory: normal chest expansion, no tachypnea Neurological: cranial nerve grossly intact, no new deficit Hosp A/P - Plan 05/23: This is 69 year old male who presented with acute renal failure and acute hypoxic respiratory failure requiring intubation Acute hypoxic respiratory failure secondary to cardiogenic shock/pulmonary edema from ESRD vs pneumonia -patient is extubated. He is getting dialysis daily. Pulmonary edema has improved -he is on dobutamine drip by cardiology. ECHO shows EF 20-25%. Family meeting held 05/22, they want to continue aggressive care until patient is more alert. Currently he is still confused, so continue with family wishes for now -continue vanc and cefepime. WBC currently up to 12 New diagnosis of ESRD - continue dialysis Leukocytosis - wBC up to 12, blood cultures negative, patient is anuric - on vanc and cefepime - send sputum culture if able Hyperkalemia - resolved Hyponatremia - secondary to hypervolemia -improving to 131 Folate deficiency Anemia - started folic acid supplementation 05/24: The patient respiratory status appears to be stable. On IV antibiotics until 05/27 to complete 7-day course. No signs of sepsis. Continue dialysis per nephrology.
[2020-05-24] MEDS: Cefepime 0.5 GM, Admixture Fee 1 EACH in Sodium Chloride 0.9% 100 ML IVPB SCH (17:09)
--- NOTE | 2020-05-24 18:31 | ULT ---
BILATERAL UPPER EXTREMITY VENOUS DOPPLER ULTRASOUND FOR VEIN MAPPIN05/24/20 HISTORY: End-stage renal disease. FINDINGS: RIGHT UPPER EXTREMITY BRACHIAL ARTERY: 4.9 mm RADIAL ARTERY: 2.0 mm ULNAR ARTERY: 2.8 mm CEPHALIC VEIN Proximal Arm: 3.6 mm Mid Arm: 2.7 mm Distal Arm: 2.7 mm Antecubital Fossa: 2.2 mm Proximal Forearm: 2.7 mm Mid Forearm: 2.3 mm Distal Forearm: 1.8 mm BASILIC VEIN Proximal Arm: 3.2 mm Mid Arm: 2.9 mm Distal Arm: 2.5 mm Antecubital Fossa: 2.9 mm Proximal Forearm: 1.8 mm Mid Forearm: 1.7 mm Distal Forearm: 1.8 mm LEFT UPPER EXTREMITY BRACHIAL ARTERY: 5.2 mm RADIAL ARTERY: 2.6 mm ULNAR ARTERY: 2.2 mm CEPHALIC VEIN Proximal Arm: 1.6 mm Mid Arm: 1.5 mm Distal Arm: 2.0 mm Antecubital Fossa: 3.2 mm Proximal Forearm: 1.3 mm Mid Forearm: Thrombus Distal Forearm: Thrombus BASILIC VEIN Proximal Arm: 4.9 mm Mid Arm: 3.2 mm Distal Arm: 3.5 mm Antecubital Fossa: 2.8 mm Proximal Forearm: 1.7 mm Mid Forearm: 1.2 mm Distal Forearm: 1.3 mm POS: OFF
[2020-05-24] MEDS ORDERED: traMADol HCl 50 MG TAB PO SCH (21:30)
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
[2020-05-24 22:39] LABS: #Eosinphils 0.3 thou/uL (0.0-0.7); #Lymphocytes 0.4 thou/uL (1.20-3.40); #Monocytes 1.1 thou/uL (0.11-0.59); #Neutrophils 9.6 thou/uL (1.40-6.50); %Eosinophils 2.7 % (0.0-10.0); %Lymphocytes 3.1 % (21.0-51.0); %Monocytes 9.8 % (0.0-10.0); %Neutrophils 84.4 % (42.0-75.0); Hemoglobin 7.7 g/dL (14.0-18.0); Mean Corpuscular HGB CONC 33.1 g/dL (32.0-36.0); Mean Corpuscular Hemoglobin 28.6 pg (27.0-31.0); Mean Corpuscular Volume 86.4 fL (78.0-98.0); Mean Platelet Volume 7.3 fL (7.4-10.4); Platelet Count 182 thou/uL (130-400); RBC Distribution Width 14.9 % (11.5-14.5); Red Blood Cell (RBC) Count 2.71 mill/uL (4.70-6.10); White Blood Cell (WBC) Count 11.4 thou/uL (4.8-10.8)
[2020-05-24 22:53] LABS: Lactic Acid 0.9 mmol/L (0.5-2.2)
[2020-05-24 22:59] LABS: ALT (SGPT) 14 U/L (8-55); AST (SGOT) 20 U/L (5-34); Alkaline Phosphatase 80 U/L (40-110); Anion Gap 18 mmol/L (10-20); BUN (Urea Nitrogen) 51 mg/dL (8.4-25.7); Bilirubin, Total 0.6 mg/dL (0.2-1.2); Calc. Creatinine Clearance 14 mL/min (70-130); Calcium 8.4 mg/dL (7.8-10.44); Carbon Dioxide 23 mmol/L (23-31); Chloride 93 mmol/L (98-107); Estimated GFR-MDRD 9; Globulin 2.9 g/dL (2.4-3.5); Glucose 170 mg/dL (83-110); Lipase 13 U/L (8-78); Magnesium 2.4 mg/dL (1.6-2.6); Potassium 4.1 mmol/L (3.5-5.1); Protein, Total 5.9 g/dL (5.8-8.1); Sodium 130 mmol/L (136-145)
[2020-05-25] MEDS ORDERED: traMADol HCl 50 MG TAB PO PRN (03:51)
[2020-05-25 05:13] LABS: Anion Gap 17 mmol/L (10-20); BUN (Urea Nitrogen) 56 mg/dL (8.4-25.7); BUN/Creatinine Ratio 8.58; Calc. Creatinine Clearance 14 mL/min (70-130); Calcium 8.4 mg/dL (7.8-10.44); Carbon Dioxide 24 mmol/L (23-31); Chloride 93 mmol/L (98-107); Estimated GFR-MDRD 8; Glucose 162 mg/dL (83-110); Phosphorus 7.1 mg/dL (2.3-4.7); Potassium 4.3 mmol/L (3.5-5.1); Sodium 130 mmol/L (136-145)
[2020-05-25 05:25] LABS: Eosinophils 4 % (0-10); Hemoglobin 7.9 g/dL (14.0-18.0); Lymphocytes 2 % (21-51); MDiff Complete? YES; Mean Corpuscular HGB CONC 32.6 g/dL (32.0-36.0); Mean Corpuscular Hemoglobin 28.3 pg (27.0-31.0); Mean Corpuscular Volume 86.8 fL (78.0-98.0); Mean Platelet Volume 7.8 fL (7.4-10.4); Monocytes 7 % (0-10); Neutrophil 87 % (42-75); Platelet Count 197 thou/uL (130-400); White Blood Cell (WBC) Count 12.2 thou/uL (4.8-10.8)
[2020-05-25] MEDS: HumaLOG 300 UNITS/3 ML VIAL SC PRN ×2 (06:29→18:23)
[2020-05-25] MEDS: Folic Acid 0.4 MG in Admixture Fee 1 EACH SC SCH (08:37)
[2020-05-25] MEDS: Aspirin Chewable 81 MG TAB PO SCH (08:37)
[2020-05-25] MEDS: Famotidine/PF 20 mg/2ml Vial SLOW IVP SCH (08:37)
[2020-05-25] MEDS: Carvedilol 3.125 MG TAB PO SCH ×2 (08:37→21:46)
[2020-05-25] MEDS: Heparin 5,000 UNITS/ML VIAL SC SCH ×2 (08:37→21:47)
--- NOTE | 2020-05-25 12:13 | PDOC.HOSPP ---
- Subjective Encounter Date: 05/25/20 Subjective: The patient stated that he is feeling well this afternoon. - Objective Vital Signs & Weight: Vital Signs (12 hours) Temp Pulse Resp BP Pulse Ox 05/25/20 11:15 97.9 F 82 18 126/66 99 05/25/20 07:12 97.5 F L 84 20 128/61 97 05/25/20 03:13 97.8 F 78 22 H 101/58 L 95 Weight Admit Weight 231 lb Weight 195 lb 12.328 oz Most Recent Monitor Data Heart Rate from ECG 103 NIBP 124/68 NIBP BP-Mean 86 Respiration from ECG 18 SpO2 100 I&O: 05/24/20 05/25/20 05/26/20 06:59 06:59 06:59 Intake Total 114.0 1298.8 Balance 114.0 1298.8 Result Diagrams: 05/25/20 04:13 05/25/20 04:12 Additional Labs: Accuchecks 05/25/20 05/25/20 05/24/20 11:38 05:28 20:36 POC Glucose 167 H 178 H 223 H 05/24/20 05/24/20 16:49 10:55 POC Glucose 173 H 250 H Hospitalist ROS - Medication Medications: Active Medications Generic Name Dose Route Start Last Admin Trade Name Freq PRN Reason Stop Dose Admin Aspirin 81 mg 05/20/20 09:00 05/25/20 08:37 Aspirin Chewable PO 81 mg DAILY SHANNON Administration Carvedilol 3.125 mg 05/20/20 09:00 05/25/20 08:37 Coreg PO 3.125 mg BID SHANNON Administration Famotidine 20 mg 05/20/20 09:00 05/25/20 08:37 Pepcid SLOW IVP 20 mg 0900 SHANNON Administration Heparin Sodium (Porcine) 5,000 units 05/23/20 09:00 05/25/20 08:37 Heparin SC 5,000 units BID SHANNON Administration Vancomycin HCl 750 mg/ Sodium 250 mls @ 250 mls/hr 05/20/20 06:45 05/21/20 15 :55 Chloride IVPB 250 mls WILLCALL SHANNON Administration Cefepime HCl 0.5 gm/ 100 mls @ 200 mls/hr 05/21/20 16:00 05/24/20 17:09 Miscellaneous Medication 1 IVPB 100 mls each/ Sodium Chloride 1600 SHANNON Administration Dobutamine HCl/Dextrose 500 mg 250 mls @ 15.78 mls/hr 05/20/20 15:30 21:56 / Device IVPB 250 mls INF SHANNON Administration Protocol 5 MCG/KG/MIN Folic Acid 0.4 mg/ 0.08 mls @ 0 mls/hr 05/21/20 09:00 05/25/20 08:37 Miscellaneous Medication SC 0.08 mls DAILY SHANNON Administration Insulin Human Lispro 0 units 05/24/20 09:36 05/25/20 06:29 Humalog SC 2 unit .MODERATE SLIDING SC PRN Administration Moderate Correctional Scale Insulin Human Lispro 0 units 05/24/20 21:11 05/24/20 21:51 Humalog SC 2 unit .BEDTIME SLIDING SC PRN Administration Bedtime Correctional Scale Morphine Sulfate 2 mg 05/20/20 04:59 05/22/20 23:51 Morphine SLOW IVP 06/19/20 04:59 2 mg Q1H PRN Administration Breakthrough Pain/Agitation Tramadol HCl 50 mg 05/25/20 03:51 05/25/20 04:13 Ultram PO 50 mg Q4H PRN Administration Pain - Exam General Appearance: awake alert ENT: normocephalic atraumatic Respiratory: normal chest expansion, no tachypnea Neurological: cranial nerve grossly intact, no focal deficits Hosp A/P - Plan 05/23: This is 69 year old male who presented with acute renal failure and acute hypoxic respiratory failure requiring intubation Acute hypoxic respiratory failure secondary to cardiogenic shock/pulmonary edema from ESRD vs pneumonia -patient is extubated. He is getting dialysis daily. Pulmonary edema has improved -he is on dobutamine drip by cardiology. ECHO shows EF 20-25%. Family meeting held 05/22, they want to continue aggressive care until patient is more alert. Currently he is still confused, so continue with family wishes for now -continue vanc and cefepime. WBC currently up to 12 New diagnosis of ESRD - continue dialysis Leukocytosis - wBC up to 12, blood cultures negative, patient is anuric - on vanc and cefepime - send sputum culture if able Hyperkalemia - resolved Hyponatremia - secondary to hypervolemia -improving to 131 Folate deficiency Anemia - started folic acid supplementation 05/24: The patient respiratory status appears to be stable. On IV antibiotics until 05/27 to complete 7-day course. No signs of sepsis. Continue dialysis per nephrology. 05/25: The patient will undergo dialysis access placement tomorrow. Continue antibiotics for 2 more days. He is clinically stable. After the access is placed, we need to work to secure an outpatient dialysis in addition to follow-up with surgery in regard to his colon cancer. Continue inotropic management per cardiology.
[2020-05-25] MEDS: DOBUTamine 500 mg/250 ml 500 MG in Premix Bag 1 BAG IVPB SCH (16:41)
[2020-05-25] MEDS: Cefepime 0.5 GM, Admixture Fee 1 EACH in Sodium Chloride 0.9% 100 ML IVPB SCH (16:41)
[2020-05-26 04:29] LABS: Hemoglobin 8.4 g/dL (14.0-18.0); Hypochromia SLIGHT = 6-15 cells (100X) (0-5/hpf); Lymphocytes 2 % (21-51); MDiff Complete? YES; Mean Corpuscular HGB CONC 32.7 g/dL (32.0-36.0); Mean Corpuscular Hemoglobin 28.4 pg (27.0-31.0); Mean Corpuscular Volume 86.8 fL (78.0-98.0); Monocytes 14 % (0-10); Neutrophil 84 % (42-75); Platelet Count 204 thou/uL (130-400); Platelet Morphology Comment Appears Adequate; Red Blood Cell (RBC) Count 2.94 mill/uL (4.70-6.10); White Blood Cell (WBC) Count 11.7 thou/uL (4.8-10.8)
[2020-05-26 04:40] LABS: Albumin 3.2 g/dL (3.4-4.8); Anion Gap 23 mmol/L (10-20); BUN (Urea Nitrogen) 74 mg/dL (8.4-25.7); BUN/Creatinine Ratio 9.78; Calc. Creatinine Clearance 11 mL/min (70-130); Calcium 8.5 mg/dL (7.8-10.44); Carbon Dioxide 20 mmol/L (23-31); Chloride 91 mmol/L (98-107); Estimated GFR-MDRD 7; Glucose 128 mg/dL (83-110); Phosphorus 7.6 mg/dL (2.3-4.7); Potassium 4.8 mmol/L (3.5-5.1); Sodium 129 mmol/L (136-145)
[2020-05-26] MEDS: Carvedilol 3.125 MG TAB PO SCH ×2 (05:34→21:37)
[2020-05-26] MEDS ORDERED: Lidocaine 1% w/Epinephrine 1:100K 20 ML VIAL ONE (08:37)
[2020-05-26] MEDS ORDERED: Bupivacaine PF 0.5% 30 ML VIAL ONE (08:37)
[2020-05-26] MEDS ORDERED: Heparin 10,000 UNITS/ 10 ML VIAL ONE ×2 (08:37→10:52)
[2020-05-26] MEDS ORDERED: Sodium Chloride 0.9% 10 ML ONE (08:37)
[2020-05-26] MEDS ORDERED: Sodium Chloride 0.9% 20 ML ONE (08:39)
[2020-05-26] MEDS ORDERED: Fentanyl 100 MCG/2 ML VIAL ONE (08:41)
[2020-05-26] MEDS ORDERED: Ondansetron HCl/PF 4 MG/2 ML Vial IVP PRN (09:19)
[2020-05-26] MEDS: Folic Acid 0.4 MG in Admixture Fee 1 EACH SC SCH (10:50)
[2020-05-26] MEDS: Aspirin Chewable 81 MG TAB PO SCH (10:50)
[2020-05-26] MEDS: Heparin 5,000 UNITS/ML VIAL SC SCH ×2 (10:51→21:37)
[2020-05-26] MEDS: Famotidine/PF 20 mg/2ml Vial SLOW IVP SCH (10:51)
[2020-05-26] MEDS: DOBUTamine 500 mg/250 ml 500 MG in Premix Bag 1 BAG IVPB SCH (10:52)
[2020-05-26 11:45] LABS: Vancomycin, Random 12.7 ug/mL (See Comment)
[2020-05-26] MEDS ORDERED: Vancomycin HCl 1.5 GM in Sodium Chloride 0.9% 250 ML 300 ML IVPB SCH (12:15)
[2020-05-26] MEDS ORDERED: HOLD VANCOMYCIN FOR LEVEL >20 FS SCH (12:15)
[2020-05-26] MEDS ORDERED: Vancomycin HCl 750 MG in Sodium Chloride 0.9% 250 ML 250 ML IVPB SCH (12:15)
[2020-05-26] MEDS ORDERED: Vancomycin HCl 1.25 GM in Sodium Chloride 0.9% 250 ML 250 ML IVPB SCH (12:15)
[2020-05-26] MEDS ORDERED: Vancomycin Sliding Scale 1 EACH FS ONE (12:15)
[2020-05-26] MEDS ORDERED: Vancomycin 1 GM in Premix Bag 1 BAG IVPB SCH (12:15)
--- NOTE | 2020-05-26 12:29 | PDOC.HOSPP ---
- Subjective Encounter Date: 05/26/20 Subjective: No acute events overnight. - Objective Vital Signs & Weight: Vital Signs (12 hours) Temp Pulse Resp BP Pulse Ox 05/26/20 10:10 98.4 F 93 24 H 124/60 96 05/26/20 03:17 97.6 F 89 24 H 109/59 L 98 Weight Admit Weight 231 lb Weight 205 lb 11.06 oz Most Recent Monitor Data Heart Rate from ECG 103 NIBP 124/68 NIBP BP-Mean 86 Respiration from ECG 18 SpO2 100 I&O: 05/25/20 05/26/20 05/27/20 06:59 06:59 06:59 Intake Total 1298.8 Balance 1298.8 Result Diagrams: 05/26/20 04:08 05/26/20 04:08 Additional Labs: Accuchecks 05/26/20 05/26/20 05/25/20 10:54 05:43 16:15 POC Glucose 132 H 142 H 246 H Hospitalist ROS - Medication Medications: Active Medications Generic Name Dose Route Start Last Admin Trade Name Haroon PRN Reason Stop Dose Admin Aspirin 81 mg 05/20/20 09:00 05/26/20 10:50 Aspirin Chewable PO 81 mg DAILY SHANNON Administration Carvedilol 3.125 mg 05/20/20 09:00 05/26/20 05:34 Coreg PO 3.125 mg BID SHANNON Administration Famotidine 20 mg 05/20/20 09:00 05/26/20 10:51 Pepcid SLOW IVP 20 mg 0900 SHANNON Administration Heparin Sodium (Porcine) 5,000 units 05/23/20 09:00 05/26/20 10:51 Heparin SC 5,000 units BID SHANNON Administration Cefepime HCl 0.5 gm/ 100 mls @ 200 mls/hr 05/21/20 16:00 05/25/20 16:41 Miscellaneous Medication 1 IVPB 100 mls each/ Sodium Chloride 1600 SHANNON Administration Dobutamine HCl/Dextrose 500 mg 250 mls @ 15.78 mls/hr 05/20/20 15:30 10:52 / Device IVPB 250 mls INF SHANNON Administration Protocol 5 MCG/KG/MIN Folic Acid 0.4 mg/ 0.08 mls @ 0 mls/hr 05/21/20 09:00 05/26/20 10:50 Miscellaneous Medication SC 0.08 mls DAILY SHANNON Administration Insulin Human Lispro 0 units 05/24/20 09:36 05/25/20 18:23 Humalog SC 4 unit .MODERATE SLIDING SC PRN Administration Moderate Correctional Scale Insulin Human Lispro 0 units 05/24/20 21:11 05/24/20 21:51 Humalog SC 2 unit .BEDTIME SLIDING SC PRN Administration Bedtime Correctional Scale Morphine Sulfate 2 mg 05/20/20 04:59 05/22/20 23:51 Morphine SLOW IVP 06/19/20 04:59 2 mg Q1H PRN Administration Breakthrough Pain/Agitation - Exam General Appearance: awake alert ENT: normocephalic atraumatic Neck: supple, no JVD Heart: RRR Respiratory: normal chest expansion, no tachypnea Extremities: no cyanosis, no clubbing Neurological: cranial nerve grossly intact, no new deficit Hosp A/P - Plan 05/23: This is 69 year old male who presented with acute renal failure and acute hypoxic respiratory failure requiring intubation Acute hypoxic respiratory failure secondary to cardiogenic shock/pulmonary edema from ESRD vs pneumonia -patient is extubated. He is getting dialysis daily. Pulmonary edema has improved -he is on dobutamine drip by cardiology. ECHO shows EF 20-25%. Family meeting held 05/22, they want to continue aggressive care until patient is more alert. Currently he is still confused, so continue with family wishes for now -continue vanc and cefepime. WBC currently up to 12 New diagnosis of ESRD - continue dialysis Leukocytosis - wBC up to 12, blood cultures negative, patient is anuric - on vanc and cefepime - send sputum culture if able Hyperkalemia - resolved Hyponatremia - secondary to hypervolemia -improving to 131 Folate deficiency Anemia - started folic acid supplementation 05/24: The patient respiratory status appears to be stable. On IV antibiotics until 05/27 to complete 7-day course. No signs of sepsis. Continue dialysis per nephrology. 05/25: The patient will undergo dialysis access placement tomorrow. Continue antibiotics for 2 more days. He is clinically stable. After the access is placed, we need to work to secure an outpatient dialysis in addition to follow-up with surgery in regard to his colon cancer. Continue inotropic management per cardiology. 05/26: Continue antibiotics for 1 more day. No signs of sepsis. Plan for dialysis catheter placement today. The patient will need an outpatient dialysis chair to be set up. Continue management per nephrology and cardiology.
--- NOTE | 2020-05-26 12:36 | PDOC.CPN ---
- Subjective Date: 05/26/20 Time: 12:34 Interval history: He is much more SOB today. He is on HD on my evaluation and he states he already feels better. Edema worse than last week but he states it is also better. - Review of Systems General: reports: fatigue. denies: fever/chills, weight/appetite/sleep changes , night sweats Respiratory: reports: shortness of breath. denies: cough, congestion, exercise intolerance Cardiovascular: denies: chest pain, palpitation, edema, paroxysmal nocturnal dyspnea, orthopnea Gastrointestinal: denies: nausea, vomiting, diarrhea, constipation, abd pain, GI bleeding Musculoskeletal: denies: pain, tenderness, stiffness, swelling, arthritis/ arthralgias Neurological: denies: numbness, syncope, seizure, weakness - Objective Allergies/Adverse Reactions: Allergies Allergy/AdvReac Type Severity Reaction Status Date / Time No Known Drug Allergies Allergy Verified 05/20/20 05:25 Visit Medications: Current Medications Aspirin (Aspirin Chewable) 81 mg PO DAILY [facility] Last Admin: 05/26/20 10:50 Dose: 81 mg Carvedilol (Coreg) 3.125 mg PO BID [facility] Last Admin: 05/26/20 05:34 Dose: 3.125 mg Dextrose/Water (Dextrose 50%) 25 gm SLOW IVP PRN PRN PRN Reason: Hypoglycemia Epoetin Davi-epbx (Retacrit) 2,000 unit IVP .WILLCALL MoWeFr [facility] Epoetin Davi-epbx (Retacrit) 3,000 [facility] Famotidine (Pepcid) 20 mg SLOW IVP 0900 [facility] Last Admin: 05/26/20 10:51 Dose: 20 mg Glucagon (Glucagon) 1 mg IM PRN PRN PRN Reason: Hypoglycemia Heparin Sodium (Porcine) (Heparin) 5,000 units SC BID [facility] Last Admin: 05/26/20 10:51 Dose: 5,000 units Cefepime HCl 0.5 gm/Miscellaneous Medication 1 each/ Sodium Chloride 100 mls @ 200 mls/hr IVPB 1600 [facility] Last Admin: 05/25/20 16:41 Dose: 100 mls Dobutamine HCl/Dextrose 500 mg (/ Device) 250 mls @ 15.78 mls/hr IVPB INF [facility]; Protocol Last Admin: 05/26/20 10:52 Dose: 250 mls Folic Acid 0.4 mg/ (Miscellaneous Medication) 0.08 mls @ 0 mls/hr SC DAILY SHANNON Last Admin: 05/26/20 10:50 Dose: 0.08 mls Dextrose/Water (D5w) 1,000 mls @ 0 mls/hr IV .Q0M PRN PRN Reason: Hypoglycemia Vancomycin HCl 1.5 gm/ Sodium (Chloride) 300 mls @ 200 mls/hr IVPB WILLCALL SHANNON Vancomycin HCl 1.25 gm/ Sodium (Chloride) 250 mls @ 166.667 mls/hr IVPB WILLCALL SHANNON Vancomycin HCl 1 gm/ Device 200 mls @ 200 mls/hr IVPB WILLCALL SHANNON Vancomycin HCl 750 mg/ Sodium (Chloride) 250 mls @ 250 mls/hr IVPB WILLCALL SHANNON Insulin Human Lispro (Humalog) 0 units SC .MODERATE SLIDING SC PRN PRN Reason: Moderate Correctional Scale Last Admin: 05/25/20 18:23 Dose: 4 unit Insulin Human Lispro (Humalog) 0 units SC .BEDTIME SLIDING SC PRN PRN Reason: Bedtime Correctional Scale Last Admin: 05/24/20 21:51 Dose: 2 unit Miscellaneous Medication (Pharmacy To Dose) 1 each IVPB PRN PRN PRN Reason: Pharmacy to dose Miscellaneous Medication (Pharmacy To Dose) 1 each IVPB PRN PRN PRN Reason: Pharmacy to dose Morphine Sulfate (Morphine) 2 mg SLOW IVP Q1H PRN PRN Reason: Breakthrough Pain/Agitation Stop: 06/19/20 04:59 Last Admin: 05/22/20 23:51 Dose: 2 mg Discontinue Previous Narcotic Pain Medications And Benzodiazepines 1 each FS .ONE SHANNON Stop: 06/19/20 04:59 Hold Vancomycin For (Level >20) 0 each FS .AT DIALYSIS SHANNON Sodium Chloride (Flush - Normal Saline) 10 ml IVF PRN PRN PRN Reason: Saline Flush Tramadol HCl (Ultram) 50 mg PO Q12H PRN PRN Reason: Pain Vital Signs & Weight: Vital Signs Temp Pulse Resp BP Pulse Ox 05/26/20 10:10 98.4 F 93 24 H 124/60 96 05/26/20 03:17 97.6 F 89 24 H 109/59 L 98 Admit Weight 231 lb Weight 205 lb 11.06 oz - Physical Exam General: alert & oriented x3 HEENT: mucus membranes moist Neck: supple neck Cardiac: regular rate and rhythm Lungs: bibasilar rales Neuro: grossly intact Abdomen: active bowel sounds Extremities: 2+ LE edema Skin: clear Musculoskeletal: no pain - Labs Result Diagrams: 05/26/20 04:08 05/26/20 04:08 Troponin/CKMB Troponin I 0.296 ng/mL (< 0.028) H 05/20/20 09:26 - Telemetry Sinus rhythms and dysrhythmias: sinus rhythm - Assessment/Plan Assessment/Plan: 1. Acute on chronic systolic heart failure, improved. 2. Acute on chronic kidney injury requiring HD 3. Multivessel CAD s/p CABG 4. Severe dilated ischemic CM EF at 15-20% 5. Rectal cancer. 6. Acute hypoxic respiratory insufficiency requiring mechanical ventilation, resolved. 7. Hyperkalemia, resolved. PLAN: - Will continue innotropic support with dobutamine low dose. for nopw. Try to wqean off once more euvolemic. - Continue HD per nephrology. - He is again wanting to go home. He is currently not stable for discharge due to volume overload. He understands and verbalizes understanding of this. He also needs to have a chair for HD before discharge. - Continue BB only, BP too low for addition of Entresto or ACEI.
--- NOTE | 2020-05-26 12:48 | RAD ---
CHEST 1 VIEW: Date: 05/26/2020 HISTORY: Right venous access dialysis catheter placement. COMPARISON: 05/22/2020. FINDINGS: The previously noted endotracheal tube and NG tubes have been removed. There is a left central line i n place in satisfactory position. Right dual lumen venous access catheter is noted in satisfactory po sition. Poor inspiratory effort with some patchy parenchymal changes noted bilaterally in the mid ranjan g zones and particularly in the lower lung zones, greater on the right side, with some prominent righ t hemidiaphragm elevation. These changes in the right base could certainly represent some partial ate lectasis. No pneumothorax. IMPRESSION: Post left central line and right-sided venous access catheter placement without pneumothorax. Bilater al parenchymal opacities, particularly in the right base. Continue short-term follow-up. POS: RRE
--- NOTE | 2020-05-26 12:59 | PRG ---
DATE OF SERVICE: 05/26/2020 Mr. Palafox had a cuffed tunneled dialysis catheter today. We were going to place a right arm fistula, but he is too orthopneic and dyspneic to have that procedure. Today, I have talked to Dr. Wilson. Dr. Wilson has spoken with the patient in [place] and family in [place], and this patient has desired to continue outpatient dialysis. He had a misunderstanding that he would have to come to the hospital once a week for dialysis and stay for a number of days, but he wants to be home. The patient is agreeable to continue hemodialysis as an outpatient, that needs to be arranged. As far as the patient's rectosigmoid cancer, he has completed radiation chemo neoadjuvant therapy, he will need definitive resection in the future. This will have to be delayed another 4 to 8 weeks after cardiac bypass grafting. Currently, he will need to go home and have hemodialysis. At some point, he should have a right arm fistula. An IV access and blood draws should be avoided in his right arm as these are his veins. The fistula could be placed in his right arm prior to discharge this week or as an outpatient at a later time, which is probably what the patient prefers as he wants to be discharged home as soon as possible as soon as outpatient dialysis arrangements were made. Job ID: [id number]
--- NOTE | 2020-05-26 15:31 | OP ---
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 PROCEDURE PERFORMED: Left IJ triple-lumen catheter, right IJ cuffed tunneled dialysis catheter. ANESTHESIA: Very minimal sedation, local 0.5% Marcaine 30 mL mixed with 1% Xylocaine with epinephrine 20 mL. Ultrasound and fluoroscopy used. Note, the patient was scheduled to have a right arm fistula, but he was too dyspneic and orthopneic to have this done today despite being dialyzed for several days. This will have to be performed at a later time. DESCRIPTION OF PROCEDURE: The patient was taken to the operating room, where under very little sedation, his neck and chest were prepared with ChloraPrep and draped in routine fashion. Local anesthetic infiltrated in skin and subcutaneous tissue about the operative site. Ultrasound guidance was used to cannulate the right and left internal jugular veins and J-wire catheter was placed. Trocars removed. Skin site enlarged sharply, stab incision made over the right chest, planned hemodialysis catheter exit site and the cuffed tunneled hemodialysis catheter placed, secured with 3-0 nylon sutures, and sterile dressing applied. Seldinger technique used to place the hemodialysis catheter in the right IJ as well as left IJ central line. Both catheter secured with 3-0 nylon suture, sterile dressing applied. Each port aspirated of blood, flushed with saline solution. Hemodialysis catheter flushed with heparinized saline solution, 1000 units of heparin per mL, indicating volume of the port. The patient will need future right arm fistula. Job ID: [id number]
--- NOTE | 2020-05-26 17:39 | PRG ---
DATE OF SERVICE: 05/26/2020 SUBJECTIVE: The patient is seen and examined, seems to be doing very well, status post tunneled dialysis catheter and fistula placement. Noted with the following vital signs. OBJECTIVE: VITAL SIGNS: Afebrile, temperature 98.4, pulse 93, respiratory rate of 24, O2 saturation of 96% with a blood pressure 124/60. HEENT: Unremarkable. CARDIOVASCULAR SYSTEM: First and second heart sounds were heard. RESPIRATORY SYSTEM: Clear to auscultation. DIGESTIVE SYSTEM: Revealed a benign abdomen. EXTREMITIES: No peripheral edema. SKIN: No new gross rash. LYMPHATICS: No peripheral lymphadenopathy. IMPRESSION: 1. [id number] kidney disease, likely end-stage renal disease at this point. 2. Anemia of chronic kidney disease. 3. Coronary artery disease, status post recent bypass surgery. PLAN: 1. The patient is currently on Tuesday, Tuesday, Tuesday schedule dialysis. 2. All dialysis towards outpatient placement to be ordered. 3. Kitchen Supervisor consultation for outpatient dialysis placement help. 4. Further management to be dependent on the clinical course. Job ID: [id number]
[2020-05-26] MEDS: Cefepime 0.5 GM, Admixture Fee 1 EACH in Sodium Chloride 0.9% 100 ML IVPB SCH (18:11)
[2020-05-26] MEDS ORDERED: Tuberculin PPD 0.1 ML VIAL I-DERMAL SCH (19:00)
[2020-05-27] MEDS: DOBUTamine 500 mg/250 ml 500 MG in Premix Bag 1 BAG IVPB SCH (03:47)
[2020-05-27 05:01] LABS: Band 13 % (5-11); Eosinophils 1 % (0-10); Hemoglobin 7.6 g/dL (14.0-18.0); Lymphocytes 3 % (21-51); MDiff Complete? YES; Mean Corpuscular HGB CONC 32.3 g/dL (32.0-36.0); Mean Corpuscular Hemoglobin 28.2 pg (27.0-31.0); Mean Corpuscular Volume 87.4 fL (78.0-98.0); Mean Platelet Volume 8.2 fL (7.4-10.4); Monocytes 7 % (0-10); Neutrophil 76 % (42-75); Platelet Count 228 thou/uL (130-400); Platelet Morphology Comment Appears Adequate; White Blood Cell (WBC) Count 11.6 thou/uL (4.8-10.8)
[2020-05-27] MEDS: HumaLOG 300 UNITS/3 ML VIAL SC PRN (06:42)
[2020-05-27] MEDS: Famotidine/PF 20 mg/2ml Vial SLOW IVP SCH (09:16)
[2020-05-27] MEDS: Carvedilol 3.125 MG TAB PO SCH ×2 (09:17→20:48)
[2020-05-27] MEDS: Folic Acid 0.4 MG in Admixture Fee 1 EACH SC SCH (09:17)
[2020-05-27] MEDS: Aspirin Chewable 81 MG TAB PO SCH (09:17)
[2020-05-27] MEDS: Heparin 5,000 UNITS/ML VIAL SC SCH ×2 (09:18→20:48)
[2020-05-27] MEDS: traMADol HCl 50 MG TAB PO PRN (09:24)
--- NOTE | 2020-05-27 12:10 | PDOC.CPN ---
- Subjective Date: 05/27/20 Time: 12:08 Interval history: He became agitated last night and pulled his left central line. Tunneled catheter still in place. His breathing is significantly better now with 2L off in HD yesterday. Still needing supplemental oxygen. - Review of Systems General: denies: fever/chills, weight/appetite/sleep changes, night sweats, fatigue Respiratory: denies: cough, congestion, shortness of breath, exercise intolerance Cardiovascular: reports: edema. denies: chest pain, palpitation, paroxysmal nocturnal dyspnea, orthopnea Gastrointestinal: denies: nausea, vomiting, diarrhea, constipation, abd pain, GI bleeding Musculoskeletal: denies: pain, tenderness, stiffness, swelling, arthritis/ arthralgias Neurological: denies: numbness, syncope, seizure, weakness - Objective Allergies/Adverse Reactions: Allergies Allergy/AdvReac Type Severity Reaction Status Date / Time No Known Drug Allergies Allergy Verified 05/20/20 05:25 Visit Medications: Current Medications Aspirin (Aspirin Chewable) 81 mg PO DAILY [facility] Last Admin: 05/27/20 09:17 Dose: 81 mg Carvedilol (Coreg) 3.125 mg PO BID [facility] Last Admin: 05/27/20 09:17 Dose: 3.125 mg Dextrose/Water (Dextrose 50%) 25 gm SLOW IVP PRN PRN PRN Reason: Hypoglycemia Epoetin Davi-epbx (Retacrit) 2,000 unit IVP .WILLCALL MoWeFr [facility] Epoetin Davi-epbx (Retacrit) 3[facility] Famotidine (Pepcid) 20 mg SLOW IVP 0900 [facility] Last Admin: 05/27/20 09:16 Dose: 20 mg Glucagon (Glucagon) 1 mg IM PRN PRN PRN Reason: Hypoglycemia Heparin Sodium (Porcine) (Heparin) 5,000 units SC BID [facility] Last Admin: 05/27/20 09:18 Dose: 5,000 units Cefepime HCl 0.5 gm/Miscellaneous Medication 1 each/ Sodium Chloride 100 mls @ 200 mls/hr IVPB 1600 [facility] Last Admin: 05/26/20 18:11 Dose: 100 mls Dobutamine HCl/Dextrose 500 mg (/ Device) 250 mls @ 15.78 mls/hr IVPB INF [facility]; Protocol Last Admin: 05/27/20 03:47 Dose: 250 mls Folic Acid 0.4 mg/ (Miscellaneous Medication) 0.08 mls @ 0 mls/hr SC DAILY [facility] Last Admin: 05/27/20 09:17 Dose: 0.08 mls Dextrose/Water (D5w) 1,000 mls @ 0 mls/hr IV .Q0M PRN PRN Reason: Hypoglycemia Vancomycin HCl 1.5 gm/ Sodium (Chloride) 300 mls @ 200 mls/hr IVPB WILLCALL [facility] Vancomycin HCl 1.25 gm/ Sodium (Chloride) 250 mls @ 166.667 mls/hr IVPB WILLCALL [facility] Vancomycin HCl 1 gm/ Device 200 mls @ 200 mls/hr IVPB WILLCALL [facility] Vancomycin HCl 750 mg/ Sodium (Chloride) 250 mls @ 250 mls/hr IVPB WILLCALL [facility] Insulin Human Lispro (Humalog) 0 units SC .MODERATE SLIDING SC PRN PRN Reason: Moderate Correctional Scale Last Admin: 05/27/20 06:42 Dose: 4 unit Insulin Human Lispro (Humalog) 0 units SC .BEDTIME SLIDING SC PRN PRN Reason: Bedtime Correctional Scale Last Admin: 05/24/20 21:51 Dose: 2 unit Miscellaneous Medication (Pharmacy To Dose) 1 each IVPB PRN PRN PRN Reason: Pharmacy to dose Miscellaneous Medication (Pharmacy To Dose) 1 each IVPB PRN PRN PRN Reason: Pharmacy to dose Morphine Sulfate (Morphine) 2 mg SLOW IVP Q1H PRN PRN Reason: Breakthrough Pain/Agitation Stop: 06/19/20 04:59 Last Admin: 05/22/20 23:51 Dose: 2 mg Discontinue Previous Narcotic Pain Medications And Benzodiazepines 1 each FS .ONE [facility] Stop: 06/19/20 04:59 Hold Vancomycin For (Level >20) 0 each FS .AT DIALYSIS [facility] Read Ppd Test Site 0 each PO ONE [facility] Stop: 05/28/20 12:00 Sodium Chloride (Flush - Normal Saline) 10 ml IVF PRN PRN PRN Reason: Saline Flush Tramadol HCl (Ultram) 50 mg PO Q12H PRN PRN Reason: Pain Last Admin: 05/27/20 09:24 Dose: 50 mg Vital Signs & Weight: Vital Signs Temp Pulse Resp BP Pulse Ox 05/27/20 11:34 98.1 F 80 15 96/52 L 95 05/27/20 07:14 99.6 F 69 26 H 106/56 L 94 L 05/27/20 04:00 99.2 F 91 20 112/64 98 05/27/20 01:05 98 Admit Weight 231 lb 14.821 oz Weight 196 lb 6.91 oz - Physical Exam General: alert & oriented x3 HEENT: mucus membranes moist Neck: supple neck Cardiac: regular rate and rhythm Lungs: normal breath sounds Neuro: grossly intact Abdomen: active bowel sounds Extremities: 1+ LE edema Skin: clear Musculoskeletal: no pain - Labs Result Diagrams: 05/27/20 04:05 05/26/20 04:08 Troponin/CKMB Troponin I 0.296 ng/mL (< 0.028) H 05/20/20 09:26 - Telemetry Sinus rhythms and dysrhythmias: sinus rhythm - Assessment/Plan Assessment/Plan: 1. Acute on chronic systolic heart failure, improved. 2. Acute on chronic kidney injury requiring HD 3. Multivessel CAD s/p CABG 4. Severe dilated ischemic CM EF at 15-20% 5. Rectal cancer. 6. Acute hypoxic respiratory insufficiency requiring mechanical ventilation, resolved. 7. Hyperkalemia, resolved. PLAN: - Off dobutamine now. - Continue HD per nephrology. - Will place order for lifevest. He agreed to this when we spoke about it yesterday. - Continue BB only, BP still too low for Entresto or ACEI.
--- NOTE | 2020-05-27 14:03 | PDOC.PALPN ---
Palliative Progress Note - Subjective Sitting at bedside. Complains of slight headache. Sitter in room. Communicated with exhibit designer (Sondra Keen [phone]) Rev Lianna Carmona also present - Objective Vital Signs: Vital Signs - Most Recent Temp Pulse Resp BP Pulse Ox 98.1 F 80 15 96/52 L 95 05/27/20 11:34 05/27/20 11:34 05/27/20 11:34 05/27/20 11:34 05/27/20 11:34 - Physical Exam Constitutional: ill appearing HEENT: EOMI, moist MMs Respiratory: no rhonchi, no wheezing, diminished lung sound Cardiovascular: RRR Gastrointestinal: soft, non-tender Deviation from normal: obese Musculoskeletal: edema present Neurology: moves all 4 limbs Skin: bruising, fragile Deviation from normal: healing surgical site to chest. Psychiatric: A&O x 3 - Assessment (1) Acute respiratory failure requiring reintubation Code(s): J96.00 - ACUTE RESPIRATORY FAILURE, UNSP W HYPOXIA OR HYPERCAPNIA Current Visit: Yes Status: Acute (2) Acute on chronic systolic (congestive) heart failure Code(s): I50.23 - ACUTE ON CHRONIC SYSTOLIC (CONGESTIVE) HEART FAILURE Current Visit: No Status: Acute (3) Palliative care encounter Code(s): Z51.5 - ENCOUNTER FOR PALLIATIVE CARE Current Visit: No Status: Acute (4) Renal failure Current Visit: No Status: Acute (5) DM type 2 (diabetes mellitus, type 2) Current Visit: No Status: Chronic - Plan Plan: Lengthy conversation related to Ethics consult and discussion with patient to review his Goal of Care. Mr Palafox had given his permission for Rev Lianna Carmona and myself to visit with patient in relation to his wishes for his care. Psychiatric Clinical Nurse Specialist services utilized ( Sondra Keen [id number]). Rev Carmona communicated with exhibit designer importance of relaying specifically what was being communicated. Initial discussion in relation to dialysis as Mr Palafox had previously stated that he did not desire to have dialysis. Mr Palafox has only experienced dialysis in the hospital setting, communicated that it was a "hard process", and lengthy. Education that the out of hospital setting would require dialysis 3 days a week and it would be for several hours. He appeared concerned, further relayed that concern was related to expense/cost of gas/oil to transport to and from outpatient dialysis. In asking Mr Palafox what he preferred between the choice of aggressive treatment including dialysis and transition back home with hospice care he relayed that "He had wanted comfort care in the home but that his son and wanted him to seek care to sustain life. Mr Palafox was encouraged to reflect on his wishes and desires related to his care , specifically home with hospice or continue with dialysis. Mr Palafox was tired and requested to "think about his options. Attempt for a "teach back" method to evaluate Mr Palafox understanding of his different choices, however as Mr Palafox requested to rest this method will be carried forth in future conversation. Rev Carmona and myself will continue to follow and plan to readdress . The follow up will allow Mr Palafox time of reflection and to further express his wishes relating to continuing care or seeking comfort measures. Communicated with Dr Abdi [50] minutes spent on this encounter with >50% of the time in counseling and coordination of care. - ROS Constitutional: weakness ENT: other (denies congestin or difficulity swallowing) Respiratory: other (denies shortness of breath) Cardiology: other (denies palpitations or angina) Gastrointestinal: other (denies nausea or vomiting) Neurological: headache
[2020-05-27] MEDS: Morphine 2 MG/ML VIAL SLOW IVP PRN ×2 (15:02→16:19)
[2020-05-27] MEDS: Cefepime 0.5 GM, Admixture Fee 1 EACH in Sodium Chloride 0.9% 100 ML IVPB SCH (15:20)
[2020-05-27 16:23] LABS: Troponin I 0.162 ng/mL (< 0.028)
--- NOTE | 2020-05-27 17:27 | PRG ---
DATE OF SERVICE: 05/27/2020 SUBJECTIVE: The patient noted with the following vital signs. OBJECTIVE: VITAL SIGNS: Afebrile, temperature 98, pulse 82, respiratory rate of 20, O2 saturation of 95% with a blood pressure 103/57. HEENT: Unremarkable. CARDIOVASCULAR: First and second heart sounds heard. RESPIRATORY: Clear to auscultation. DIGESTIVE SYSTEM: A benign abdomen. Positive bowel sounds. EXTREMITIES: No peripheral edema. SKIN: No new gross rash. LYMPHATICS: No peripheral lymphadenopathy. IMPRESSION: 1. Acute on chronic kidney disease, likely culminated into end-stage renal disease. 2. Coronary artery disease status post recent bypass surgery. PLAN: 1. The patient to be dialyzed tomorrow in accordance with Tuesday, Tuesday, Tuesday schedule dialysis. 2. The patient already has a tunneled dialysis catheter, so outpatient dialysis placement will be possible patient is medically cleared for discharge and the patient has already outpatient dialysis. 3. Further management to be dependent on the clinical course. Job ID: [id number]
--- NOTE | 2020-05-27 17:53 | PRG ---
DATE OF SERVICE: 05/27/2020 The patient is status post CABG. He has a tunneled catheter. I will place central line to preserve his veins. The patient became confused, pulled out his left IJ central line. Nurses placed a left antecubital IV. The patient's ultrasound 05/24/2020, revealed the only chance for a fistula right arm. Fortunately, IV has not been placed here. Left cephalic vein is smaller. Definitely, he would avoid all IV access to right arm. Was planning placement of right arm fistula tomorrow, but the patient is slightly dyspneic and is confused and requiring sitters. We will postpone this for later time. Job ID: [id number]
[2020-05-27 19:40] LABS: Troponin I 0.125 ng/mL (< 0.028)
--- NOTE | 2020-05-27 20:17 | PDOC.HOSPP ---
- Subjective Encounter Date: 05/27/20 Subjective: The patient was reportedly agitated earlier today and was requiring sitter. He pulled out his central line. His tunneled dialysis catheter still in place. - Objective Vital Signs & Weight: Vital Signs (12 hours) Temp Pulse Resp BP Pulse Ox 05/27/20 14:50 98.0 F 82 20 103/57 L 95 05/27/20 11:34 98.1 F 80 15 96/52 L 95 Weight Admit Weight 231 lb 14.821 oz Weight 196 lb 6.91 oz Most Recent Monitor Data Heart Rate from ECG 103 NIBP 124/68 NIBP BP-Mean 86 Respiration from ECG 18 SpO2 100 I&O: 05/26/20 05/27/20 05/28/20 06:59 06:59 06:59 Intake Total 1659.6 960 Balance 1659.6 960 Result Diagrams: 05/27/20 04:05 05/26/20 04:08 Additional Labs: Accuchecks 05/27/20 05/27/20 05/27/20 16:30 11:13 06:30 POC Glucose 129 H 103 203 H 05/26/20 20:06 POC Glucose 143 H Hospitalist ROS - Medication Medications: Active Medications Generic Name Dose Route Start Last Admin Trade Name Freq PRN Reason Stop Dose Admin Aspirin 81 mg 05/20/20 09:00 05/27/20 09:17 Aspirin Chewable PO 81 mg DAILY [facility] Administration Carvedilol 3.125 mg 05/20/20 09:00 05/27/20 09:17 Coreg PO 3.125 mg BID [facility] Administration Famotidine 20 mg 05/20/20 09:00 05/27/20 09:16 Pepcid SLOW IVP 20 mg 0900 [facility] Administration Heparin Sodium (Porcine) 5,000 units 05/23/20 09:00 05/27/20 09:18 Heparin SC 5,000 units BID [facility] Administration Cefepime HCl 0.5 gm/ 100 mls @ 200 mls/hr 05/21/20 16:00 05/27/20 15:20 Miscellaneous Medication 1 IVPB 100 mls each/ Sodium Chloride 1600 [facility] Administration Folic Acid 0.4 mg/ 0.08 mls @ 0 mls/hr 05/21/20 09:00 05/27/20 09:17 Miscellaneous Medication SC 0.08 mls DAILY [facility] Administration Insulin Human Lispro 0 units 05/24/20 09:36 05/27/20 06:42 Humalog SC 4 unit .MODERATE SLIDING SC PRN Administration Moderate Correctional Scale Insulin Human Lispro 0 units 05/24/20 21:11 05/24/20 21:51 Humalog SC 2 unit .BEDTIME SLIDING SC PRN Administration Bedtime Correctional Scale Morphine Sulfate 2 mg 05/20/20 04:59 05/27/20 16:19 Morphine SLOW IVP 06/19/20 04:59 2 mg Q1H PRN Administration Breakthrough Pain/Agitation Tramadol HCl 50 mg 05/26/20 10:30 05/27/20 09:24 Ultram PO 50 mg Q12H PRN Administration Pain - Exam General Appearance: awake alert Neck: supple, no JVD Heart: RRR Respiratory: normal chest expansion, no tachypnea Gastrointestinal: soft Extremities: no cyanosis, no clubbing Neurological: cranial nerve grossly intact, no focal deficits Hosp A/P - Plan 05/23: This is 69 year old male who presented with acute renal failure and acute hypoxic respiratory failure requiring intubation Acute hypoxic respiratory failure secondary to cardiogenic shock/pulmonary edema from ESRD vs pneumonia -patient is extubated. He is getting dialysis daily. Pulmonary edema has improved -he is on dobutamine drip by cardiology. ECHO shows EF 20-25%. Family meeting held 05/22, they want to continue aggressive care until patient is more alert. Currently he is still confused, so continue with family wishes for now -continue vanc and cefepime. WBC currently up to 12 New diagnosis of ESRD - continue dialysis Leukocytosis - wBC up to 12, blood cultures negative, patient is anuric - on vanc and cefepime - send sputum culture if able Hyperkalemia - resolved Hyponatremia - secondary to hypervolemia -improving to 131 Folate deficiency Anemia - started folic acid supplementation 05/24: The patient respiratory status appears to be stable. On IV antibiotics until 05/27 to complete 7-day course. No signs of sepsis. Continue dialysis per nephrology. 05/25: The patient will undergo dialysis access placement tomorrow. Continue antibiotics for 2 more days. He is clinically stable. After the access is placed, we need to work to secure an outpatient dialysis in addition to follow-up with surgery in regard to his colon cancer. Continue inotropic management per cardiology. 05/26: Continue antibiotics for 1 more day. No signs of sepsis. Plan for dialysis catheter placement today. The patient will need an outpatient dialysis chair to be set up. Continue management per nephrology and cardiology. 05/27: Discontinue IV antibiotics. Status post hemodialysis yesterday with removal of 2 L of fluids. He will be on Tuesday, Tuesday, and Tuesday schedule. Dobutamine has been discontinued. Chest pain was reported earlier today. EKG did not show any ST elevations and serial troponins were mildly elevated but downtrending.
[2020-05-28 04:49] LABS: Band 4 % (5-11); Hypochromia SLIGHT = 6-15 cells (100X) (0-5/hpf); Lymphocytes 3 % (21-51); MDiff Complete? YES; Mean Corpuscular HGB CONC 32.4 g/dL (32.0-36.0); Mean Corpuscular Hemoglobin 28.5 pg (27.0-31.0); Mean Corpuscular Volume 87.9 fL (78.0-98.0); Mean Platelet Volume 8.5 fL (7.4-10.4); Monocytes 7 % (0-10); Neutrophil 86 % (42-75); Platelet Count 172 thou/uL (130-400); Platelet Morphology Comment Appears Adequate; Red Blood Cell (RBC) Count 2.47 mill/uL (4.70-6.10); White Blood Cell (WBC) Count 10.5 thou/uL (4.8-10.8)
[2020-05-28] MEDS ORDERED: Heparin 10,000 UNITS/ 10 ML VIAL ONE (08:54)
[2020-05-28] MEDS ORDERED: READ PPD TEST SITE PO SCH (09:00)
[2020-05-28] MEDS: Famotidine/PF 20 mg/2ml Vial SLOW IVP SCH (12:46)
[2020-05-28] MEDS: Aspirin Chewable 81 MG TAB PO SCH (12:47)
[2020-05-28] MEDS: Carvedilol 3.125 MG TAB PO SCH ×2 (12:47→21:15)
[2020-05-28] MEDS: Heparin 5,000 UNITS/ML VIAL SC SCH ×2 (12:47→21:14)
[2020-05-28] MEDS: Folic Acid 0.4 MG in Admixture Fee 1 EACH SC SCH (13:00)
--- NOTE | 2020-05-28 13:05 | PDOC.HOSPP ---
- Subjective Encounter Date: 05/28/20 Subjective: The patient was seen and examined during dialysis. There is no evidence of agitation today. - Objective Vital Signs & Weight: Vital Signs (12 hours) Temp Pulse Resp BP Pulse Ox 05/28/20 12:01 98.7 F 92 16 100/57 L 97 05/28/20 04:00 98.1 F 87 15 109/58 L 95 Weight Admit Weight 231 lb 14.821 oz Weight 193 lb 15.602 oz Most Recent Monitor Data Heart Rate from ECG 103 NIBP 124/68 NIBP BP-Mean 86 Respiration from ECG 18 SpO2 100 I&O: 05/27/20 05/28/20 05/29/20 06:59 06:59 06:59 Intake Total 1659.6 1060 Output Total 0 Balance 1659.6 1060 Result Diagrams: 05/28/20 03:36 05/26/20 04:08 Additional Labs: Accuchecks 05/28/20 05/28/20 05/27/20 11:20 05:46 20:43 POC Glucose 135 H 146 H 183 H 05/27/20 16:30 POC Glucose 129 H Hospitalist ROS - Medication Medications: Active Medications Generic Name Dose Route Start Last Admin Trade Name Freq PRN Reason Stop Dose Admin Aspirin 81 mg 05/20/20 09:00 05/28/20 12:47 Aspirin Chewable PO 81 mg DAILY [facility] Administration Carvedilol 3.125 mg 05/20/20 09:00 05/28/20 12:47 Coreg PO 3.125 mg BID [facility] Administration Famotidine 20 mg 05/20/20 09:00 05/28/20 12:46 Pepcid SLOW IVP 20 mg 0900 [facility] Administration Heparin Sodium (Porcine) 5,000 units 05/23/20 09:00 05/28/20 12:47 Heparin SC 5,000 units BID [facility] Administration Folic Acid 0.4 mg/ 0.08 mls @ 0 mls/hr 05/21/20 09:00 05/28/20 13:00 Miscellaneous Medication SC 0.08 mls DAILY [facility] Administration Insulin Human Lispro 0 units 05/24/20 09:36 05/27/20 06:42 Humalog SC 4 unit .MODERATE SLIDING SC PRN Administration Moderate Correctional Scale Insulin Human Lispro 0 units 05/24/20 21:11 05/24/20 21:51 Humalog SC 2 unit .BEDTIME SLIDING SC PRN Administration Bedtime Correctional Scale Morphine Sulfate 2 mg 05/20/20 04:59 05/27/20 16:19 Morphine SLOW IVP 06/19/20 04:59 2 mg Q1H PRN Administration Breakthrough Pain/Agitation Tramadol HCl 50 mg 05/26/20 10:30 05/27/20 09:24 Ultram PO 50 mg Q12H PRN Administration Pain - Exam General Appearance: awake alert ENT: normocephalic atraumatic Neck: supple, no JVD Respiratory: normal chest expansion, no tachypnea Gastrointestinal: soft, non-tender, non-distended, normal bowel sounds Extremities: no cyanosis, no clubbing Neurological: cranial nerve grossly intact, no focal deficits Hosp A/P - Plan 05/23: This is 69 year old male who presented with acute renal failure and acute hypoxic respiratory failure requiring intubation Acute hypoxic respiratory failure secondary to cardiogenic shock/pulmonary edema from ESRD vs pneumonia -patient is extubated. He is getting dialysis daily. Pulmonary edema has improved -he is on dobutamine drip by cardiology. ECHO shows EF 20-25%. Family meeting held 05/22, they want to continue aggressive care until patient is more alert. Currently he is still confused, so continue with family wishes for now -continue vanc and cefepime. WBC currently up to 12 New diagnosis of ESRD - continue dialysis Leukocytosis - wBC up to 12, blood cultures negative, patient is anuric - on vanc and cefepime - send sputum culture if able Hyperkalemia - resolved Hyponatremia - secondary to hypervolemia -improving to 131 Folate deficiency Anemia - started folic acid supplementation 05/24: The patient respiratory status appears to be stable. On IV antibiotics until 05/27 to complete 7-day course. No signs of sepsis. Continue dialysis per nephrology. 05/25: The patient will undergo dialysis access placement tomorrow. Continue antibiotics for 2 more days. He is clinically stable. After the access is placed, we need to work to secure an outpatient dialysis in addition to follow-up with surgery in regard to his colon cancer. Continue inotropic management per cardiology. 05/26: Continue antibiotics for 1 more day. No signs of sepsis. Plan for dialysis catheter placement today. The patient will need an outpatient dialysis chair to be set up. Continue management per nephrology and cardiology. 05/27: Discontinue IV antibiotics. Status post hemodialysis yesterday with removal of 2 L of fluids. He will be on Tuesday, Tuesday, and Tuesday schedule. Dobutamine has been discontinued. Chest pain was reported earlier today. EKG did not show any ST elevations and serial troponins were mildly elevated but downtrending. 05/28: The patient is undergoing hemodialysis. His vital signs are stable. No more complaints of chest pain today. Surgery planning placement of a right arm fistula at some point. Awaiting availability of dialysis chair.
[2020-05-28] MEDS: traMADol HCl 50 MG TAB PO PRN (14:05)
--- NOTE | 2020-05-28 17:22 | PRG ---
DATE OF SERVICE: 05/28/2020 SUBJECTIVE: The patient was seen and examined at dialysis, noted to be a little bit short of breath, noted with following vital signs. OBJECTIVE: VITAL SIGNS: Afebrile, temperature 98.7, pulse 92, respiratory rate of 16, O2 saturations are 97% with blood pressure of 100/57. HEENT: Unremarkable. CARDIOVASCULAR SYSTEM: First and second heart sounds were heard. RESPIRATORY SYSTEM: Clear to auscultation anteriorly. DIGESTIVE SYSTEM: Revealed a distended abdomen. EXTREMITIES: Show no significant peripheral edema. SKIN: No new gross rash. LYMPHATICS: No peripheral lymphadenopathy. IMPRESSION: 1. Acute on chronic kidney disease culminated into end-stage renal disease. 2. Respiratory distress, query cause possibly related to fluid overload versus coronary artery disease. 3. Coronary artery disease, status post recent bypass surgery. 4. Ischemic cardiomyopathy. 5. Obesity. 6. Anemia. PLAN: 1. The patient to be transfused with 3 units of blood during dialysis today. 2. Increase ultrafiltration about 5 L off today. We will modify the dialysis documented this degree of ultrafiltration, especially in this patient with labile hemodynamics. 3. The patient could not secure AV fistula given the cardiac and respiratory condition of this patient. However, once the patient is may be able to secure a long-term AV fistula. 4. Outpatient dialysis placement in progress. Job ID: [id number]
--- NOTE | 2020-05-28 17:48 | PDOC.CPN ---
- Subjective Date: 05/28/20 Time: 17:47 Interval history: No new issues. He has not been confused since yesterday. Breathing back to baseline. - Review of Systems General: denies: fever/chills, weight/appetite/sleep changes, night sweats, fatigue Respiratory: denies: cough, congestion, shortness of breath, exercise intolerance Cardiovascular: denies: chest pain, palpitation, edema, paroxysmal nocturnal dyspnea, orthopnea Gastrointestinal: denies: nausea, vomiting, diarrhea, constipation, abd pain, GI bleeding Musculoskeletal: denies: pain, tenderness, stiffness, swelling, arthritis/ arthralgias Neurological: denies: numbness, syncope, seizure, weakness - Objective Allergies/Adverse Reactions: Allergies Allergy/AdvReac Type Severity Reaction Status Date / Time No Known Drug Allergies Allergy Verified 05/20/20 05:25 Visit Medications: Current Medications Aspirin (Aspirin Chewable) 81 mg PO DAILY [facility] Last Admin: 05/28/20 12:47 Dose: 81 mg Carvedilol (Coreg) 3.125 mg PO BID [facility] Last Admin: 05/28/20 12:47 Dose: 3.125 mg Dextrose/Water (Dextrose 50%) 25 gm SLOW IVP PRN PRN PRN Reason: Hypoglycemia Epoetin Davi-epbx (Retacrit) [facility] Epoetin Davi-epbx (Retacrit) 3,000 unit IVP .[facility] Famotidine (Pepcid) 20 mg SLOW IVP 0900 [facility] Last Admin: 05/28/20 12:46 Dose: 20 mg Glucagon (Glucagon) 1 mg IM PRN PRN PRN Reason: Hypoglycemia Heparin Sodium (Porcine) (Heparin) 5,000 units SC BID [facility] Last Admin: 05/28/20 12:47 Dose: 5,000 units Folic Acid 0.4 mg/ (Miscellaneous Medication) 0.08 mls @ 0 mls/hr SC DAILY [facility] Last Admin: 05/28/20 13:00 Dose: 0.08 mls Dextrose/Water (D5w) 1,000 mls @ 0 mls/hr IV .Q0M PRN PRN Reason: Hypoglycemia Insulin Human Lispro (Humalog) 0 units SC .MODERATE SLIDING SC PRN PRN Reason: Moderate Correctional Scale Last Admin: 05/27/20 06:42 Dose: 4 unit Insulin Human Lispro (Humalog) 0 units SC .BEDTIME SLIDING SC PRN PRN Reason: Bedtime Correctional Scale Last Admin: 05/24/20 21:51 Dose: 2 unit Morphine Sulfate (Morphine) 2 mg SLOW IVP Q1H PRN PRN Reason: Breakthrough Pain/Agitation Stop: 06/19/20 04:59 Last Admin: 05/27/20 16:19 Dose: 2 mg Discontinue Previous Narcotic Pain Medications And Benzodiazepines 1 each FS .[facility] Stop: 06/19/20 04:59 Sodium Chloride (Flush - Normal Saline) 10 ml IVF PRN PRN PRN Reason: Saline Flush Tramadol HCl (Ultram) 50 mg PO Q12H PRN PRN Reason: Pain Last Admin: 05/28/20 14:05 Dose: 50 mg Vital Signs & Weight: Vital Signs Temp Pulse Resp BP BP Pulse Ox 05/28/20 16:10 98.1 F 75 21 H 91/54 L 94 L 05/28/20 12:45 97 05/28/20 12:01 98.7 F 92 16 100/57 L 97 Admit Weight 231 lb 14.821 oz Weight 193 lb 15.602 oz - Physical Exam General: alert & oriented x3 HEENT: mucus membranes moist Neck: supple neck Cardiac: regular rate and rhythm Lungs: normal breath sounds Neuro: grossly intact Abdomen: active bowel sounds Extremities: no edema Skin: clear Musculoskeletal: no pain - Labs Result Diagrams: 05/28/20 03:36 05/26/20 04:08 Troponin/CKMB Troponin I 0.125 ng/mL (< 0.028) H 05/27/20 19:12 - Telemetry Sinus rhythms and dysrhythmias: sinus rhythm - Assessment/Plan Assessment/Plan: 1. Acute on chronic systolic heart failure, improved. 2. Acute on chronic kidney injury requiring HD 3. Multivessel CAD s/p CABG 4. Severe dilated ischemic CM EF at 15-20% 5. Rectal cancer. 6. Acute hypoxic respiratory insufficiency requiring mechanical ventilation, resolved. 7. Hyperkalemia, resolved. PLAN: - Continue HD per nephrology. - Lifevest before discharge. Order placed yesterday. - Continue BB only, BP still too low for Entresto or ACEI. - May discharge once HD set up done and lifevest in place.
[2020-05-28] MEDS: HumaLOG 300 UNITS/3 ML VIAL SC PRN (17:58)
[2020-05-29] MEDS: traMADol HCl 50 MG TAB PO PRN ×2 (04:19→21:05)
[2020-05-29 04:47] LABS: Band 3 % (5-11); Eosinophils 4 % (0-10); Hemoglobin 8.8 g/dL (14.0-18.0); Lymphocytes 4 % (21-51); MDiff Complete? YES; Mean Corpuscular HGB CONC 32.9 g/dL (32.0-36.0); Mean Corpuscular Hemoglobin 28.7 pg (27.0-31.0); Mean Corpuscular Volume 87.1 fL (78.0-98.0); Monocytes 12 % (0-10); Neutrophil 77 % (42-75); Platelet Count 231 thou/uL (130-400); Platelet Morphology Comment Appears Adequate; RBC Distribution Width 14.9 % (11.5-14.5); Red Blood Cell (RBC) Count 3.07 mill/uL (4.70-6.10); White Blood Cell (WBC) Count 12.5 thou/uL (4.8-10.8)
[2020-05-29] MEDS: Carvedilol 3.125 MG TAB PO SCH ×2 (07:47→22:38)
[2020-05-29] MEDS: Aspirin Chewable 81 MG TAB PO SCH (07:47)
[2020-05-29] MEDS: Famotidine/PF 20 mg/2ml Vial SLOW IVP SCH (07:47)
[2020-05-29] MEDS: Heparin 5,000 UNITS/ML VIAL SC SCH ×2 (07:48→21:05)
[2020-05-29] MEDS: Folic Acid 0.4 MG in Admixture Fee 1 EACH SC SCH (08:47)
[2020-05-29 09:36] LABS: Anion Gap 20 mmol/L (10-20); BUN (Urea Nitrogen) 35 mg/dL (8.4-25.7); Calc. Creatinine Clearance 17 mL/min (70-130); Calcium 8.7 mg/dL (7.8-10.44); Carbon Dioxide 19 mmol/L (23-31); Chloride 97 mmol/L (98-107); Estimated GFR-MDRD 12; Glucose 191 mg/dL (83-110); Sodium 131 mmol/L (136-145)
[2020-05-29] MEDS: HumaLOG 300 UNITS/3 ML VIAL SC PRN ×2 (12:17→21:25)
--- NOTE | 2020-05-29 12:45 | PDOC.CPN ---
- Subjective Date: 05/29/20 Time: 12:44 Interval history: Doing ok. Still a lot of LE edema but breathing more comfortably. - Review of Systems General: denies: fever/chills, weight/appetite/sleep changes, night sweats, fatigue Respiratory: reports: exercise intolerance. denies: cough, congestion, shortness of breath Cardiovascular: reports: edema. denies: chest pain, palpitation, paroxysmal nocturnal dyspnea, orthopnea Gastrointestinal: denies: nausea, vomiting, diarrhea, constipation, abd pain, GI bleeding Musculoskeletal: denies: pain, tenderness, stiffness, swelling, arthritis/ arthralgias Neurological: denies: numbness, syncope, seizure, weakness - Objective Allergies/Adverse Reactions: Allergies Allergy/AdvReac Type Severity Reaction Status Date / Time No Known Drug Allergies Allergy Verified 05/20/20 05:25 Visit Medications: Current Medications Aspirin (Aspirin Chewable) 81 mg PO DAILY [facility] Last Admin: 05/29/20 07:47 Dose: 81 mg Carvedilol (Coreg) 3.125 mg PO BID [facility] Last Admin: 05/29/20 07:47 Dose: 3.125 mg Dextrose/Water (Dextrose 50%) 25 gm SLOW IVP PRN PRN PRN Reason: Hypoglycemia Epoetin Davi-epbx (Retacrit) 2,[facility] Epoetin Davi-epbx (Retacrit) 3,000 unit IVP .[facility] Famotidine (Pepcid) 20 mg SLOW IVP 0900 [facility] Last Admin: 05/29/20 07:47 Dose: 20 mg Glucagon (Glucagon) 1 mg IM PRN PRN PRN Reason: Hypoglycemia Heparin Sodium (Porcine) (Heparin) 5,000 units SC BID [facility] Last Admin: 05/29/20 07:48 Dose: 5,000 units Folic Acid 0.4 mg/ (Miscellaneous Medication) 0.08 mls @ 0 mls/hr SC DAILY [facility] Last Admin: 05/29/20 08:47 Dose: 0.08 mls Dextrose/Water (D5w) 1,000 mls @ 0 mls/hr IV .Q0M PRN PRN Reason: Hypoglycemia Insulin Human Lispro (Humalog) 0 units SC .MODERATE SLIDING SC PRN PRN Reason: Moderate Correctional Scale Last Admin: 05/29/20 12:17 Dose: 2 unit Insulin Human Lispro (Humalog) 0 units SC .BEDTIME SLIDING SC PRN PRN Reason: Bedtime Correctional Scale Last Admin: 05/24/20 21:51 Dose: 2 unit Morphine Sulfate (Morphine) 2 mg SLOW IVP Q1H PRN PRN Reason: Breakthrough Pain/Agitation Stop: 06/19/20 04:59 Last Admin: 05/27/20 16:19 Dose: 2 mg Discontinue Previous Narcotic Pain Medications And Benzodiazepines 1 each FS .[facility] Stop: 06/19/20 04:59 Sodium Chloride (Flush - Normal Saline) 10 ml IVF PRN PRN PRN Reason: Saline Flush Tramadol HCl (Ultram) 50 mg PO Q12H PRN PRN Reason: Pain Last Admin: 05/29/20 04:19 Dose: 50 mg Vital Signs & Weight: Vital Signs Temp Pulse Resp BP BP Pulse Ox 05/29/20 07:55 94 L 05/29/20 07:38 98.3 F 82 17 107/60 94 L 05/29/20 06:57 92 L 05/29/20 04:21 98.9 F 88 20 93/55 L 92 L Admit Weight 231 lb 14.821 oz Weight 190 lb 11.198 oz - Physical Exam General: alert & oriented x3 HEENT: mucus membranes moist Neck: supple neck Cardiac: regular rate and rhythm Lungs: normal breath sounds Neuro: grossly intact Abdomen: active bowel sounds Extremities: 2+ LE edema Skin: clear Musculoskeletal: no pain - Labs Result Diagrams: 05/29/20 04:16 05/29/20 09:09 Troponin/CKMB Troponin I 0.125 ng/mL (< 0.028) H 05/27/20 19:12 - Telemetry Sinus rhythms and dysrhythmias: sinus rhythm - Assessment/Plan Assessment/Plan: 1. Acute on chronic systolic heart failure, improved. 2. Acute on chronic kidney injury requiring HD 3. Multivessel CAD s/p CABG 4. Severe dilated ischemic CM EF at 15-20% 5. Rectal cancer. 6. Acute hypoxic respiratory insufficiency requiring mechanical ventilation, resolved. 7. Hyperkalemia, resolved. PLAN: - Continue HD per nephrology. - Lifevest before discharge. - Continue BB only, BP still too low for Entresto or ACEI. - May discharge once HD set up done and lifevest in place. - Will follow.
[2020-05-29 13:45] VITALS: BMI 34.9
--- NOTE | 2020-05-29 13:50 | PDOC.PALPN ---
Palliative Progress Note - Subjective Awake, alert in bedside chair. [employer] Consultant Florence used for conversation. - Objective Vital Signs: Vital Signs - Most Recent Temp Pulse Resp BP Pulse Ox 97.6 F 82 19 109/58 L 98 05/29/20 12:14 05/29/20 12:14 05/29/20 12:14 05/29/20 12:14 05/29/20 12:14 - Physical Exam Constitutional: ill appearing HEENT: EOMI, moist MMs Respiratory: no wheezing Deviation from normal: Shortness of breath with conversation Cardiovascular: RRR Gastrointestinal: soft, non-tender Musculoskeletal: edema present, diffuse muscle atrophy Neurology: moves all 4 limbs, no focal deficits Skin: cap refill <2 seconds, fragile Psychiatric: A&O x 3, normal mood - Assessment (1) Acute respiratory failure requiring reintubation Code(s): J96.00 - ACUTE RESPIRATORY FAILURE, UNSP W HYPOXIA OR HYPERCAPNIA Current Visit: Yes Status: Acute (2) Acute on chronic systolic (congestive) heart failure Code(s): I50.23 - ACUTE ON CHRONIC SYSTOLIC (CONGESTIVE) HEART FAILURE Current Visit: No Status: Acute (3) Palliative care encounter Code(s): Z51.5 - ENCOUNTER FOR PALLIATIVE CARE Current Visit: No Status: Acute (4) Renal failure Current Visit: No Status: Acute (5) DM type 2 (diabetes mellitus, type 2) Current Visit: No Status: Chronic - Plan Plan: Met with patient to evaluate his capacity for medical decision making secondary to recent confusion and request to revisit Goal of Care. Mr Palafox is able to Communicate a choice in conversation as well as basic understanding of heart disease and renal failure. He has appreciation of non compliance of dialysis and impact on life span, although basic understanding. He also expressed reasoning and rationalization in his discussion of hoping that transportation was arranged so that he could get to and from dialysis. He expressed that this was pivotal in his decision to seek dialysis in the outpatient setting. He expressed that if he is able to obtain assistance with transportation he will pursue dialysis and Dr appointments as needed. Using teach back Mr Palafox was able to relay basic understanding of heart disease and renal failure. 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 Further example of communicating a choice, understanding, appreciation and reasoning. [45] minutes spent on this encounter with >50% of the time in counseling and coordination of care. - ROS Constitutional: weakness ENT: alteration in dentition, difficulty swallowing Respiratory: shortness of breath with extertion Cardiology: other (Negative for chest pain or palpitations) Gastrointestinal: other (Negative for nausea, vomiting) Musculoskeletal: limited mobility (related to weakness)
--- NOTE | 2020-05-29 17:04 | PRG ---
DATE OF SERVICE: 05/29/2020 SUBJECTIVE: The patient was seen and examined. Noted with the following vital signs. OBJECTIVE: VITAL SIGNS: Afebrile, temperature 97.8, pulse 81, respiratory rate of 18, O2 saturations of 96%, blood pressure 96/51. HEENT: Unremarkable. CARDIOVASCULAR SYSTEM: First and second heart sounds were heard. RESPIRATORY SYSTEM: Clear to auscultation. DIGESTIVE SYSTEM: Revealed a benign abdomen with positive bowel sounds. EXTREMITIES: No peripheral edema. SKIN: No new gross rash. LYMPHATICS: No peripheral lymphadenopathy. LABORATORY INVESTIGATION: Showed a hemoglobin of 8.8. Chemistry; creatinine 4.76, BUN of 35. IMPRESSION: 1. End-stage renal disease, on dialysis Tuesday, Tuesday, and Tuesday. 2. Anemia of chronic kidney disease, status post blood transfusion yesterday and continue with erythropoiesis stimulating agents. 3. Coronary artery disease, status post recent bypass surgery. 4. Obesity. PLAN: 1. The patient's outpatient dialysis placement issue is being worked on by the watch case polisher. 2. We will discontinue daily blood draws to avoid iatrogenic anemia and limit blood draws as needed to be coordinated with the dialysis and be done during dialysis days. Blood to be drawn by the gauge inspector. 3. Renally dose all medications. 4. Continue erythropoiesis stimulating agents. 5. Further cardiac workup as per nailer hand including Sera is ongoing. Job ID: [id number]
[2020-05-30] MEDS: traMADol HCl 50 MG TAB PO PRN (08:48)
[2020-05-30] MEDS ORDERED: Heparin 10,000 UNITS/ 10 ML VIAL ONE ×2 (10:14→10:16)
[2020-05-30 11:55] VITALS: TEMP 98
[2020-05-30] MEDS: Aspirin Chewable 81 MG TAB PO SCH (12:34)
[2020-05-30] MEDS: Folic Acid 0.4 MG in Admixture Fee 1 EACH SC SCH (12:34)
[2020-05-30] MEDS: Heparin 5,000 UNITS/ML VIAL SC SCH (12:35)
[2020-05-30] MEDS: Famotidine/PF 20 mg/2ml Vial SLOW IVP SCH (12:35)
[2020-05-30] MEDS: Carvedilol 3.125 MG TAB PO SCH (12:35)
--- NOTE | 2020-05-30 13:45 | PDOC.CPN ---
- Subjective Date: 05/30/20 Time: 13:43 Interval history: He is doing well. He is having HD on my evaluation and tolerating it well. - Review of Systems General: denies: fever/chills, weight/appetite/sleep changes, night sweats, fatigue Respiratory: denies: cough, congestion, shortness of breath, exercise intolerance Cardiovascular: denies: chest pain, palpitation, edema, paroxysmal nocturnal dyspnea, orthopnea Gastrointestinal: denies: nausea, vomiting, diarrhea, constipation, abd pain, GI bleeding Musculoskeletal: denies: pain, tenderness, stiffness, swelling, arthritis/ arthralgias Neurological: denies: numbness, syncope, seizure, weakness - Objective Allergies/Adverse Reactions: Allergies Allergy/AdvReac Type Severity Reaction Status Date / Time No Known Drug Allergies Allergy Verified 05/20/20 05:25 Visit Medications: Current Medications Aspirin (Aspirin Chewable) 81 mg PO DAILY [facility] Last Admin: 05/30/20 12:34 Dose: 81 mg Carvedilol (Coreg) 3.125 mg PO BID [facility] Last Admin: 05/30/20 12:35 Dose: 3.125 mg Dextrose/Water (Dextrose 50%) 25 gm SLOW IVP PRN PRN PRN Reason: Hypoglycemia Epoetin Davi-epbx (Retacrit) 2,000 [facility] Epoetin Davi-epbx (Retacrit) 3,000 unit IVP .[facility] Famotidine (Pepcid) 20 mg SLOW IVP 0900 [facility] Last Admin: 05/30/20 12:35 Dose: 20 mg Glucagon (Glucagon) 1 mg IM PRN PRN PRN Reason: Hypoglycemia Heparin Sodium (Porcine) (Heparin) 5,000 units SC BID [facility] Last Admin: 05/30/20 12:35 Dose: 5,000 units Folic Acid 0.4 mg/ (Miscellaneous Medication) 0.08 mls @ 0 mls/hr SC DAILY [facility] Last Admin: 05/30/20 12:34 Dose: 0.08 mls Dextrose/Water (D5w) 1,000 mls @ 0 mls/hr IV .Q0M PRN PRN Reason: Hypoglycemia Insulin Human Lispro (Humalog) 0 units SC .MODERATE SLIDING SC PRN PRN Reason: Moderate Correctional Scale Last Admin: 05/29/20 12:17 Dose: 2 unit Insulin Human Lispro (Humalog) 0 units SC .BEDTIME SLIDING SC PRN PRN Reason: Bedtime Correctional Scale Last Admin: 05/29/20 21:25 Dose: 3 unit Discontinue Previous Narcotic Pain Medications And Benzodiazepines 1 each FS .[facility] Stop: 06/19/20 04:59 Sodium Chloride (Flush - Normal Saline) 10 ml IVF PRN PRN PRN Reason: Saline Flush Tramadol HCl (Ultram) 50 mg PO Q12H PRN PRN Reason: Pain Last Admin: 05/30/20 08:48 Dose: 50 mg Vital Signs & Weight: Vital Signs Temp Pulse Resp BP Pulse Ox 05/30/20 11:40 98.0 F 88 22 H 125/62 92 L 05/30/20 07:25 98.6 F 88 16 99/58 L 94 L 05/30/20 05:23 93 L 05/30/20 04:49 98.8 F 87 18 103/57 L 93 L Admit Weight 231 lb 14.821 oz Weight 191 lb 9.307 oz - Physical Exam General: alert & oriented x3 HEENT: mucus membranes moist Neck: supple neck Cardiac: regular rate and rhythm Lungs: clear to auscultation Neuro: grossly intact Abdomen: active bowel sounds Extremities: 1+ LE edema Skin: clear Musculoskeletal: no pain - Labs Result Diagrams: 05/29/20 04:16 05/29/20 09:09 Troponin/CKMB Troponin I 0.125 ng/mL (< 0.028) H 05/27/20 19:12 - Telemetry Sinus rhythms and dysrhythmias: sinus rhythm - Assessment/Plan Assessment/Plan: 1. Acute on chronic systolic heart failure, improved. 2. Acute on chronic kidney injury requiring HD 3. Multivessel CAD s/p CABG 4. Severe dilated ischemic CM EF at 15-20% 5. Rectal cancer. 6. Acute hypoxic respiratory insufficiency requiring mechanical ventilation, resolved. 7. Hyperkalemia, resolved. PLAN: - Continue HD per nephrology. Already has chair set up with Dr. Vivas. - Lifevest before discharge. Will be fitted today. - Continue BB only, BP still too low for Entresto or ACEI. - May discharge once lifevest in place. - Follow up in the office in 2-4 weeks.
[2020-05-30] MEDS ORDERED: Activase 2 MG VIAL CATH SCH ×2 (15:30→15:45)
[2020-05-30] MEDS ORDERED: Sterile Water 10 ML VIAL IVP SCH (15:30)
[2020-05-30 16:48] VITALS: BP 105/58
--- NOTE | 2020-05-30 18:06 | PRG ---
DATE OF SERVICE: 05/30/2020 SUBJECTIVE: The patient is noted with the following vital signs. OBJECTIVE: VITAL SIGNS: Afebrile, temperature 98.0, pulse 88, respiratory rate of 22, O2 saturation of 92% to 94%, blood pressure . HEENT: Unremarkable. CARDIOVASCULAR: First and second heart sounds were heard. RESPIRATORY: Clear to auscultation. DIGESTIVE: Benign abdomen. Positive bowel sounds. EXTREMITIES: No peripheral edema. SKIN: No new gross rash. LYMPHATICS: No peripheral lymphadenopathy. IMPRESSION: 1. End-stage renal disease, hemodialysis dependent. 2. Anemia of chronic kidney disease. 3. Coronary artery disease, status post bypass surgery. PLAN: 1. The patient to be dialyzed today with ultrafiltration of up to 4 L as tolerated by hemodynamics. 2. Outpatient dialysis progress. Job ID: [id number]
--- NOTE | 2020-05-31 05:37 | DIS ---
DATE OF ADMISSION: 05/20/2020 DATE OF DISCHARGE: 05/30/2020 DISCHARGE DIAGNOSES: 1. Kwvtn-fi-[id number] renal failure requiring hemodialysis. 2. Nrefk-hk-oyknmvc heart failure with reduced ejection fraction. 3. Ischemic dilated cardiomyopathy with ejection fraction of 15% to 20%. 4. Coronary artery disease. 5. History of rectal cancer. 6. Acute respiratory failure with hypoxia requiring ventilation. 7. Hyperkalemia. DISCHARGE MEDICATIONS: 1. Aspirin 81 mg orally daily. 2. Carvedilol 3.125 mg orally. 3. Insulin glargine 20 units subcu daily. 4. Rosuvastatin 20 mg orally daily. 5. [place] 5 q.6 hours as needed for pain. HISTORY OF PRESENT ILLNESS AND HOSPITAL COURSE: The patient is a 69-year-old male with past medical history of coronary artery disease, chronic kidney disease, CHF, and left neck cancer, in addition to diabetes mellitus, who was transferred to our hospital from [facility] due to acute hypoxic respiratory failure requiring intubation. The patient was recently admitted to the hospital due to coronary artery disease requiring CABG. During recovery, the patient developed acute renal failure requiring hemodialysis. The patient refused to be on hemodialysis and was discharged home with hospice. However, his condition deteriorated and he was brought to the emergency department in a state of respiratory failure requiring intubation. The patient's echocardiogram revealed severe dilated cardiomyopathy with EF of 20% to 25%. The patient required inotropic support with dobutamine in addition to mechanical ventilation and diuresis. However, volume removal with diuretics was not feasible due to the severely deteriorated kidney function. Hemodialysis was initiated under the guidance of Nephrology, which led to improvement in the patient's volume status and eventual extubation after his respiratory status had also improved. The patient was confused in the post extubation period, which has improved gradually over the duration of his hospital stay. When his mental status returned to baseline, hemodialysis on discharge was discussed with the patient, who at this time agreed to it. The patient was placed on beta blockers due to mortality benefit for heart failure with reduced ejection fraction; however JIN inhibitors or Entresto were not initiated due to hypotension. LifeVest was ordered for the patient prior to discharge and hemodialysis chair was arranged for. This patient's dialysis is performed through a PermCath, which can be switched to a fistula at some point after discharge. Job ID: [id number]
--- NOTE | 2020-06-02 17:04 | EKG ---
Test Reason : Blood Pressure : / mmHG Vent. Rate : 080 BPM Atrial Rate : 080 BPM P-R Int : 172 ms QRS Dur : 136 ms QT Int : 436 ms P-R-T Axes : 025 -50 155 degrees QTc Int : 502 ms Normal sinus rhythm Left axis deviation Non-specific intra-ventricular conduction block Possible Anterolateral infarct (cited on or before 29-APR-2020) Abnormal ECG When compared with ECG of 05-MAY-2020 13:33, Serial changes of Anterior infarct Present Confirmed by PJ KLINE (2) on 06/02/2020 5:04:00 PM Referred By: EMILIO Confirmed By:PJ KLINE
== END 2020-05-30 19:51 | disposition home or self-care (01) | DRG 673 ==
LOC: CCU 04:49 → 2NO 05-23 13:18
PROVIDERS: ADMIT Internal Medicine; ATTEND Internal Medicine
PROC: 0JH63XZ Insertion of Tunneled Vascular Access Device into Chest Subcutaneous Tissue and Fascia, Percutaneous Approach (ICD-10-PCS; principal; 2020-05-20)
PROC: 06HY33Z Insertion of Infusion Device into Lower Vein, Percutaneous Approach (ICD-10-PCS; 2020-05-20)
PROC: 5A1945Z Respiratory Ventilation, 24-96 Consecutive Hours (ICD-10-PCS; 2020-05-20)
PROC: 02HV33Z Insertion of Infusion Device into Superior Vena Cava, Percutaneous Approach (ICD-10-PCS; 2020-05-20)
PROC: B548ZZA Ultrasonography of Superior Vena Cava, Guidance (ICD-10-PCS; 2020-05-20)
PROC: 5A1D70Z Performance of Urinary Filtration, Intermittent, Less than 6 Hours Per Day (ICD-10-PCS; 2020-05-20)
PROC: 0BP1XDZ Removal of Intraluminal Device from Trachea, External Approach (ICD-10-PCS; 2020-05-22)
PROC: 30233N1 Transfusion of Nonautologous Red Blood Cells into Peripheral Vein, Percutaneous Approach (ICD-10-PCS; 2020-05-28)
DX: N17.0 Acute kidney failure with tubular necrosis (principal); I50.23 Acute on chronic systolic (congestive) heart failure; J96.01 Acute respiratory failure with hypoxia; R57.0 Cardiogenic shock; I13.2 Hypertensive heart and chronic kidney disease with heart failure and with stage 5 chronic kidney disease, or end stage renal disease; E87.1 Hypo-osmolality and hyponatremia; E87.2 Acidosis; R65.10 Systemic inflammatory response syndrome (SIRS) of non-infectious origin without acute organ dysfunction; C19 Malignant neoplasm of rectosigmoid junction; I42.0 Dilated cardiomyopathy; N18.6 End stage renal disease; Z20.828 Contact with and (suspected) exposure to other viral communicable diseases; Z51.5 Encounter for palliative care; I25.5 Ischemic cardiomyopathy; I25.10 Atherosclerotic heart disease of native coronary artery without angina pectoris; E87.5 Hyperkalemia; E11.22 Type 2 diabetes mellitus with diabetic chronic kidney disease; E78.5 Hyperlipidemia, unspecified; D52.9 Folate deficiency anemia, unspecified; E66.01 Morbid (severe) obesity due to excess calories; D63.1 Anemia in chronic kidney disease; Z95.1 Presence of aortocoronary bypass graft; Z79.4 Long term (current) use of insulin; Z79.899 Other long term (current) drug therapy; Z68.35 Body mass index [BMI] 35.0-35.9, adult
CPT/HCPCS: 36415; 36416; 36430; 36600; 71045; 80048; 80053; 80069; 80202; 82607; 82746; 82805; 83605; 83690; 83735; 84443; 84484; 85007; 85025; 85027; 86580; 86704; 86706; 86803; 86850; 86900; 86901; 87040; 87340; 90935; 93005; 93010; 93306; 93970; 94002; 94003; 97139; C1752; G0257; G0365; J0692; J1250; J1644; J1650; J1815; J1940; J2001; J2270; J2704; J2997; J3010; J3370; J3490; J7030; J7050; P9016; S0020; S0028

== ENCOUNTER 2020-06-16 15:03 | Inpatient (IN) | payer MEDICARE, OTHER ==
[~2020-06-16 15:03] MED LIST: Heparin 10,000 UNITS/ 10 ML VIAL ONE
[2020-06-16 15:51] LABS: #Eosinphils 0.4 thou/uL (0.0-0.7); #Lymphocytes 0.7 thou/uL (1.20-3.40); #Monocytes 1.1 thou/uL (0.11-0.59); #Neutrophils 9.8 thou/uL (1.40-6.50); %Eosinophils 3.6 % (0.0-10.0); %Monocytes 9.2 % (0.0-10.0); %Neutrophils 81.2 % (42.0-75.0); Hemoglobin 9.2 g/dL (14.0-18.0); Mean Corpuscular HGB CONC 32.8 g/dL (32.0-36.0); Mean Corpuscular Volume 85.4 fL (78.0-98.0); Mean Platelet Volume 6.8 fL (7.4-10.4); Platelet Count 352 thou/uL (130-400); RBC Distribution Width 14.4 % (11.5-14.5); Red Blood Cell (RBC) Count 3.28 mill/uL (4.70-6.10); White Blood Cell (WBC) Count 12.1 thou/uL (4.8-10.8)
[2020-06-16] MEDS ORDERED: Morphine 4 MG/ML VIAL ONE (16:05)
[2020-06-16 16:17] LABS: ALT (SGPT) 9 U/L (8-55); AST (SGOT) 14 U/L (5-34); Albumin 2.9 g/dL (3.4-4.8); Alkaline Phosphatase 93 U/L (40-110); Anion Gap 17 mmol/L (10-20); BUN (Urea Nitrogen) 36 mg/dL (8.4-25.7); Bilirubin, Total 0.5 mg/dL (0.2-1.2); Calc. Creatinine Clearance 0 mL/min (70-130); Calcium 8.3 mg/dL (7.8-10.44); Carbon Dioxide 27 mmol/L (23-31); Chloride 92 mmol/L (98-107); Estimated GFR-MDRD 8; Globulin 3.1 g/dL (2.4-3.5); Glucose 83 mg/dL (83-110); Lipase 5 U/L (8-78); Potassium 3.6 mmol/L (3.5-5.1); Sodium 132 mmol/L (136-145)
--- NOTE | 2020-06-16 16:44 | CT ---
CT ABDOMEN PELVIS WITH IV CONTRAST: HISTORY: Diffuse abdominal pain. Patient is on dialysis. COMPARISON: 04/29/2020. FINDINGS: There are dependent changes in the lung bases. There is moderate amount of ascites in the abdomen. No calcified gallstones are seen. The 16 mm lesion in the spleen and right renal cysts are stable. The pancreas and adrenal glands are normal. No free air is seen. There is been interval development o f retroperitoneal lymphadenopathy. There is [id number] bilateral hydronephrosis with the periureteral thickening and adjacent infl ammatory changes at the UPJ on either side. There is also a subcapsular fluid collection in the anterior aspect of the left kidney. This measures about 17 mm in thickness. There is marked thickenin g of the posterior wall of the urinary bladder. There is no evidence of aneurysmal dilatation of the abdominal aorta. There are vascular calcificatio ns and degenerative changes in the spine. There is thickening of the moreno of the rectosigmoid. There is colonic diverticulosis. Possibility of sigmoid diverticulitis cannot be excluded. Soft tissue density in the presacral region was also noted on the previous study. Nonobstructing the loop of small bowel herniating mastoid defect in the right ventral abdominal wall is stable. IMPRESSION: 1. Ascites 2. Bilateral hydronephrosis due to thickening and periureteral inflammatory changes at the UPJs bilat erally. Left subcapsular renal fluid collection. 3. Retroperitoneal lymphadenopathy. 4. Bladder wall thickening. Cystoscopy is recommended. 5. Colonic diverticulosis with thickening of the rectosigmoid. Question diverticulitis. Possibility o f a mass cannot be excluded. 6. Findings are suspicious for malignancy/metastatic disease.
[2020-06-16 17:04] LABS: Bacteria/HPF 4+ HPF (None Seen); Bilirubin Negative (Negative); Blood, Urine 1+ (Negative); Clarity Extra Turbid (Clear); Glucose, Urine (Dipstick) 50 mg/dL (Negative); Ketone, Urine Negative (Negative); Leukocyte 25 Leu/uL (Negative); Nitrite Negative (Negative); Protein, Urine (Dipstick) 100 mg/dL (Neg-Trace); RBC/HPF Greater than 50 HPF (0-3); Specific Gravity, Urine 1.031 (1.002-1.036); Urobilinogen Normal mg/dL (Less than 2); WBC/HPF Greater than 50 HPF (0-3)
[2020-06-16 17:25] LABS: CKMB 0.8 ng/mL (0-6.6)
[2020-06-16] MEDS ORDERED: Piperacillin/Tazobactam 4.5 GM VIAL ONE (17:53)
[2020-06-16] MEDS ORDERED: Albumin 25% 25 GM/100 ML BOT IVPB SCH (19:30)
--- NOTE | 2020-06-16 21:14 | PDOC.NEPPN ---
- Subjective Encounter Date: 06/16/20 Subjective: 70 y/o male , well known to me from prior hospitalizations, with CAD with severe ischemic cardiomyopathy s/p recent CABG associated with post operative Acute renal failure/ATN and anasarca requiring hemodilaysis presenting this time with difficulty urination and dysuria as well as crampy abdominal discomfort associated with loose stools associated with episodes of bloody diarrhea. Patient has been having low blood pressures during outpatient hemodialysis limiting UF hence low dose midodrine was started with some improvement. There was no associated fever, emesis, hematemesis but he reported general ill feeling and poor oral intake. Patient had Contrast CT of the abd/pelvis which showed bilateral hydronephrosis and diverticulosis and colonic wall thickness.Patient current dialyses MWF and could not dialyze earlier due to current issues. - Objective Vital Signs & Weight: Vitals : Temp98.8, P 94, RR 21, BP 98/65, SPO2 95 on RA Result Diagrams: 06/17/20 04:19 06/17/20 04:19 Nephrology ROS - Medication Medications: Active Medications Generic Name Dose Route Start Last Admin Trade Name Freq PRN Reason Stop Dose Admin Albumin Human 25 gm 06/16/20 19:30 06/16/20 20:02 Albumin 25% IVPB 06/17/20 19:31 25 gm WILLCALL SHANNON Administration - Exam General Appearance: awake alert Eye: anicteric sclera ENT: normocephalic atraumatic, moist mucosa Neck: supple Respiratory - other findings: fair air entry bilaterally with some bibasal crackles Cardiovascular: RRR Gastrointestinal: soft, normal bowel sounds, distended Extremities: no cyanosis Extremities - other findings: Mild right and moderate left leg edema Neurological: CN's grossly intact, no focal deficits Musculoskeletal: generalized weakness PSYCH: normal affect, A&O x 3 Nephrology Results - Labs Result Diagrams: 06/17/20 04:19 06/17/20 04:19 Lab results: WBC 12.1 thou/uL (4.8-10.8) H 06/16/20 15:38 Hgb 9.2 g/dL (14.0-18.0) L 06/16/20 15:38 Hct 28.0 % (42.0-52.0) L 06/16/20 15:38 MCV 85.4 fL (78.0-98.0) 06/16/20 15:38 Plt Count 352 thou/uL (130-400) 06/16/20 15:38 Neutrophils % 81.2 % (42.0-75.0) H 06/16/20 15:38 Sodium 132 mmol/L (136-145) L 06/16/20 15:38 Potassium 3.6 mmol/L (3.5-5.1) 06/16/20 15:38 Chloride 92 mmol/L (98-107) L 06/16/20 15:38 Carbon Dioxide 27 mmol/L (23-31) 06/16/20 15:38 BUN 36 mg/dL (8.4-25.7) H 06/16/20 15:38 Creatinine 6.75 mg/dL (0.7-1.3) H 06/16/20 15:38 Glucose 83 mg/dL (83-110) 06/16/20 15:38 Lactic Acid 1.1 mmol/L (0.5-2.2) 06/16/20 17:21 Calcium 8.3 mg/dL (7.8-10.44) 06/16/20 15:38 Total Bilirubin 0.5 mg/dL (0.2-1.2) 06/16/20 15:38 AST 14 U/L (5-34) 06/16/20 15:38 ALT 9 U/L (8-55) 06/16/20 15:38 Alkaline Phosphatase 93 U/L (40-110) 06/16/20 15:38 CK-MB (CK-2) 0.8 ng/mL (0-6.6) 06/16/20 15:38 Troponin I 0.060 ng/mL (< 0.028) H 06/16/20 15:38 Serum Total Protein 6.0 g/dL (5.8-8.1) 06/16/20 15:38 Albumin 2.9 g/dL (3.4-4.8) L 06/16/20 15:38 Lipase 5 U/L (8-78) L 06/16/20 15:38 Urine Ketones Negative mg/dL (Negative) 06/16/20 16:46 Urine Blood 1+ (Negative) A 06/16/20 16:46 Urine Nitrite Negative (Negative) 06/16/20 16:46 Ur Leukocyte Esterase 25 Bev/uL (Negative) A 06/16/20 16:46 Urine RBC Greater than 50 HPF (0-3) A 06/16/20 16:46 Urine WBC Greater than 50 HPF (0-3) A 06/16/20 16:46 Ur Squamous Epith Cells 4-6 HPF (0-3) A 06/16/20 16:46 Urine Bacteria 4+ HPF (None Seen) A 06/16/20 16:46 - Radiology Interpretation CT scan - abdomen Status: report reviewed by me (CT abd/pelvis showed Moderate ascitis, Mild to moderate bilateral hydronephrosis due to thickening and periuretereal inflammatory changes at the UPJ bilaterally, left subcapsular renal fluid collection, posterior bladder wall thickening, retroperitoneal lymphadenopathy Colonic diverticulosis with possible sigmoid diverticulitis and thickening of the rectosigmoid.) Nephrology AP PN (1) Acute renal failure due to tubular necrosis Code(s): N17.0 - ACUTE KIDNEY FAILURE WITH TUBULAR NECROSIS Status: Acute (2) Hematochezia Code(s): K92.1 - MELENA Status: Acute (3) Edema Code(s): R60.9 - EDEMA, UNSPECIFIED Status: Acute (4) Abdominal ascites Code(s): R18.8 - OTHER ASCITES Status: Acute (5) Ischemic cardiomyopathy Code(s): I25.5 - ISCHEMIC CARDIOMYOPATHY Status: Acute (6) Anemia in chronic kidney disease (CKD) Code(s): N18.9 - CHRONIC KIDNEY DISEASE, UNSPECIFIED; D63.1 - ANEMIA IN CHRONIC KIDNEY DISEASE Status: Acute (7) Bilateral hydronephrosis Code(s): N13.30 - UNSPECIFIED HYDRONEPHROSIS Status: Acute - Plan Acute renal failure due to ATN on HD. Contribution of newly found bilateral hydronephrosis is unclear Bilateral hydronephrosis Anasarca/ascitis. Ischemic cardiomyopathy CAD s/p recent CABG Stage 14 Colon cancer. Bladder wall thickening. Low blood pressures. Urinary Difficulty: Most likely related to bladder abnormality. Abdominal Pain. Most likely related diverlticulosis/possible diverticulitis and colon cancer Plan We will dialyze patient today in line with outpatient schedule. Moreso patient recieved IV contrast. We will give IV albumin as needed to facilitate HD and UF. Will monitor renal function and intake and output. Antmicrobial and other treatments as per primary attending. Recommend urology evaluation. Further treatment to follow.
[2020-06-16] MEDS ORDERED: Morphine 4 MG/ML VIAL SLOW IVP PRN (22:06)
[2020-06-16] MEDS ORDERED: Acetaminophen 325 MG TAB PO PRN (22:07)
[2020-06-16] MEDS ORDERED: Piperacillin/Tazobactam 3.375 GM in Sodium Chloride 0.9% 100 ML IVPB SCH (23:59)
[2020-06-17] MEDS ORDERED: Acetaminophen 325 MG TAB PO PRN (00:14)
[2020-06-17] MEDS ORDERED: HumaLOG 300 UNITS/3 ML VIAL SC PRN (00:19)
[2020-06-17] MEDS ORDERED: Dextrose 50% Abboject 50 ML SYRINGE SLOW IVP PRN (00:19)
[2020-06-17] MEDS ORDERED: Dextrose 5% in Water 1,000 ML IV PRN (00:19)
[2020-06-17 04:48] LABS: Albumin 3.1 g/dL (3.4-4.8); Anion Gap 14 mmol/L (10-20); BUN (Urea Nitrogen) 19 mg/dL (8.4-25.7); BUN/Creatinine Ratio 4.56; Calc. Creatinine Clearance 20 mL/min (70-130); Calcium 7.9 mg/dL (7.8-10.44); Carbon Dioxide 28 mmol/L (23-31); Chloride 98 mmol/L (98-107); Estimated GFR-MDRD 14; Glucose 85 mg/dL (83-110); Phosphorus 2.5 mg/dL (2.3-4.7); Potassium 3.9 mmol/L (3.5-5.1); Sodium 136 mmol/L (136-145)
[2020-06-17 05:06] LABS: #Eosinphils 0.4 thou/uL (0.0-0.7); #Lymphocytes 0.4 thou/uL (1.20-3.40); #Monocytes 0.9 thou/uL (0.11-0.59); %Basophils 0.3 % (0.0-1.0); %Eosinophils 4.8 % (0.0-10.0); %Lymphocytes 4.6 % (21.0-51.0); %Monocytes 9.8 % (0.0-10.0); %Neutrophils 80.5 % (42.0-75.0); Hemoglobin 8.8 g/dL (14.0-18.0); Mean Corpuscular HGB CONC 29.5 g/dL (32.0-36.0); Mean Corpuscular Hemoglobin 25.9 pg (27.0-31.0); Mean Corpuscular Volume 87.9 fL (78.0-98.0); Platelet Count 276 thou/uL (130-400); RBC Distribution Width 14.5 % (11.5-14.5); White Blood Cell (WBC) Count 8.7 thou/uL (4.8-10.8)
--- NOTE | 2020-06-17 05:48 | HP ---
REASON FOR ADMISSION: Abdominal pain. HISTORY OF PRESENT ILLNESS: This is a 70-year-old male patient, who has end-stage renal disease, on hemodialysis, presented to the ER complaining of difficulty with urination, also abdominal pain that has been ongoing for the past week, described as cramping in nature, associated with episode of diarrhea with a little bit of blood in the stool with decreased p.o. intake. Also, he had hemodialysis yesterday. During hemodialysis, he had worsening of his abdominal pain. Currently, the patient is on telemetry. He just finished undergoing hemodialysis and he feels a bit better. I did review his records and patient has been to our hospital frequent times. 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 The decision was to go forward with treatment. His last admission was approximately a month ago for respiratory failure requiring intubation. It was noted that recently, he underwent an open heart surgery. During his recovery, he did develop renal failure requiring hemodialysis, initially discharged on hospice, then his health deteriorated. He was brought back to the ER and required to be intubated. His echocardiogram did reveal an EF of 20% to 25%. He was successfully extubated, then he did have a Life Vest. PAST MEDICAL HISTORY: 1. Colon cancer. 2. Diabetes, type 2. 3. Hyperlipidemia. 4. Coronary artery disease status post CABG. 5. High blood pressure. 6. End-stage renal disease, on hemodialysis. 7. 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 8. Diverticulosis. 9. Nephrolithiasis. SOCIAL HISTORY: Does not smoke. Does not drink alcohol. FAMILY HISTORY: Negative for premature coronary artery disease. ALLERGIES: NO NOTE OF ANY DRUG ALLERGIES. REVIEW OF SYSTEMS: All systems reviewed except the above mentioned, found to be negative. PHYSICAL EXAMINATION: GENERAL: Awake, alert, oriented, does not appear in distress. VITAL SIGNS: His blood pressure is 114/62, heart rate of 87, saturating 94% on room air. Head is nontraumatic, normocephalic. Pupils equal, reactive. Ocular motors are intact. Nonicteric sclerae. Well injected conjunctivae. Oral mucosa normal. Nasal mucosa normal. NECK: Supple. No adenopathy. No murmur. Thyroid is palpable. Trachea is midline. No supraclavicular adenopathy. S1, S2 regular. No murmur. No gallops. No friction rubs. No displaced PMI. LUNGS: Clear to auscultation bilaterally. No wheezes, rhonchi, or crackles. Bowel sounds are positive. ABDOMEN: Tender, but overall soft. He does have 2+ pitting edema in bilateral extremities. NEUROLOGIC: Cranial nerves 2-12 within normal limits. Normal motor function. Normal sensory function. Normal reflexes. LABORATORY DATA: Blood work shows WBC of 12.1, hemoglobin of 9.2, platelets of 352, neutrophil count 81.2%. Sodium of 132, potassium 3.6, bicarb of 27, creatinine 6.75, troponin 0.06. Lactic acid 1.4. Urinalysis shows greater than 50 WBCs. IMAGING: A CT of the abdomen and pelvis shows ascites, bilateral hydronephrosis due to thickening and periureteral inflammatory changes at the UPJ bilaterally. Left subcapsular renal fluid collection. Retroperitoneal lymphadenopathy. Bladder wall thickening. Cystoscopy recommended. Colonic diverticulosis with thickening of the sigmoid. Question diverticulitis. Possibility of a mass cannot be excluded. Findings are suspicious for malignancy/metastatic disease. 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 He just received hemodialysis. He feels a bit better, but continues to have abdominal discomfort. Cardiac: The patient is on telemetry and we will resume his medication when med rec is done. GI: The patient is having diarrhea. CT scan did suggest possible diverticulitis. We will have him on IV Zosyn. We will consult GI and we will provide him with morphine for pain control. Renal system: Electrolytes, the patient does have end-stage renal disease and he just received hemodialysis, he does have abnormal finding regarding his bladder and his ureters. I will consult Urology. Endocrinology: He is diabetic. He will be on insulin sliding scale. For DVT prophylaxis, he will be on heparin subcutaneously. I did discuss with him his code status and he wishes to be full code. Job ID: [id number]
[2020-06-17] MEDS ORDERED: HYDROcodone/Acetaminophen 5/325 mg Tablet PO PRN (09:00)
[2020-06-17] MEDS ORDERED: Non-Formulary Item 1 EACH (Insulin Glargine,Hum.Rec.Anlog [Lantus Solostar] 20 UNIT) SQ SCH (09:00)
--- NOTE | 2020-06-17 09:12 | PDOC.NEPPN ---
- Subjective Encounter Date: 06/17/20 Encounter Time: 09:11 Subjective: 70 y/o male with ATN on hemodialaysis seen in follow up. Admitted due to abdominal pain, dysuria and frequent loose stools associated with hematochezia. Had HD last night. Reports feeling better. No fever, vomiting or chest pain. - Objective Vital Signs & Weight: Vital Signs (12 hours) Temp Pulse Resp BP Pulse Ox 06/17/20 07:50 98.0 F 90 22 H 94/62 97 06/17/20 04:00 98.2 F 83 14 110/58 L 94 L 06/16/20 22:29 58 L 18 101/41 L 97 Weight Weight 199 lb Result Diagrams: 06/17/20 04:19 06/17/20 04:19 Additional Labs: Accuchecks 06/17/20 06:38 POC Glucose 91 Nephrology ROS - Medication Medications: Active Medications Generic Name Dose Route Start Last Admin Trade Name Freq PRN Reason Stop Dose Admin Albumin Human 25 gm 06/16/20 19:30 06/16/20 20:02 Albumin 25% IVPB 06/17/20 19:31 25 gm WILLCALL SHANNON Administration - Exam General Appearance: awake alert Eye: anicteric sclera ENT: normocephalic atraumatic, moist mucosa Neck: supple, symmetric Respiratory - other findings: fair air entry bilaterally with some transmitted sound Cardiovascular: RRR Gastrointestinal: soft, distended, diminished bowl sounds Gastrointestinal - other findings: mild lower abdominal tenderness Extremities - other findings: Mild right and moderate left leg edema Neurological: CN's grossly intact PSYCH: A&O x 3 Nephrology Results - Labs Result Diagrams: 06/17/20 04:19 06/17/20 04:19 Lab results: WBC 8.7 thou/uL (4.8-10.8) 06/17/20 04:19 Hgb 8.8 g/dL (14.0-18.0) L 06/17/20 04:19 Hct 29.9 % (42.0-52.0) L 06/17/20 04:19 MCV 87.9 fL (78.0-98.0) 06/17/20 04:19 Plt Count 276 thou/uL (130-400) 06/17/20 04:19 Neutrophils % 80.5 % (42.0-75.0) H 06/17/20 04:19 Sodium 136 mmol/L (136-145) 06/17/20 04:19 Potassium 3.9 mmol/L (3.5-5.1) 06/17/20 04:19 Chloride 98 mmol/L (98-107) 06/17/20 04:19 Carbon Dioxide 28 mmol/L (23-31) 06/17/20 04:19 BUN 19 mg/dL (8.4-25.7) 06/17/20 04:19 Creatinine 4.17 mg/dL (0.7-1.3) H 06/17/20 04:19 Glucose 85 mg/dL (83-110) 06/17/20 04:19 Lactic Acid 1.1 mmol/L (0.5-2.2) 06/16/20 17:21 Calcium 7.9 mg/dL (7.8-10.44) 06/17/20 04:19 Total Bilirubin 0.5 mg/dL (0.2-1.2) 06/16/20 15:38 AST 14 U/L (5-34) 06/16/20 15:38 ALT 9 U/L (8-55) 06/16/20 15:38 Alkaline Phosphatase 93 U/L (40-110) 06/16/20 15:38 CK-MB (CK-2) 0.8 ng/mL (0-6.6) 06/16/20 15:38 Troponin I 0.060 ng/mL (< 0.028) H 06/16/20 15:38 Serum Total Protein 6.0 g/dL (5.8-8.1) 06/16/20 15:38 Albumin 3.1 g/dL (3.4-4.8) L 06/17/20 04:19 Lipase 5 U/L (8-78) L 06/16/20 15:38 Urine Ketones Negative mg/dL (Negative) 06/16/20 16:46 Urine Blood 1+ (Negative) A 06/16/20 16:46 Urine Nitrite Negative (Negative) 06/16/20 16:46 Ur Leukocyte Esterase 25 Bev/uL (Negative) A 06/16/20 16:46 Urine RBC Greater than 50 HPF (0-3) A 06/16/20 16:46 Urine WBC Greater than 50 HPF (0-3) A 06/16/20 16:46 Ur Squamous Epith Cells 4-6 HPF (0-3) A 06/16/20 16:46 Urine Bacteria 4+ HPF (None Seen) A 06/16/20 16:46 Nephrology AP PN (1) Acute renal failure due to tubular necrosis Code(s): N17.0 - ACUTE KIDNEY FAILURE WITH TUBULAR NECROSIS Status: Acute (2) Hematochezia Code(s): K92.1 - MELENA Status: Acute (3) Edema Code(s): R60.9 - EDEMA, UNSPECIFIED Status: Acute (4) Abdominal ascites Code(s): R18.8 - OTHER ASCITES Status: Acute (5) Ischemic cardiomyopathy Code(s): I25.5 - ISCHEMIC CARDIOMYOPATHY Status: Acute (6) Anemia in chronic kidney disease (CKD) Code(s): N18.9 - CHRONIC KIDNEY DISEASE, UNSPECIFIED; D63.1 - ANEMIA IN CHRONIC KIDNEY DISEASE Status: Acute (7) Bilateral hydronephrosis Code(s): N13.30 - UNSPECIFIED HYDRONEPHROSIS Status: Acute (8) UTI (urinary tract infection) Status: Acute Qualifiers: Urinary tract infection type: acute cystitis Hematuria presence: without hematuria Qualified Code(s): N30.00 - Acute cystitis without hematuria (9) DM type 2 (diabetes mellitus, type 2) Status: Chronic - Plan Acute renal failure due to ATN on HD. Contribution of newly found bilateral hydronephrosis is unclear Bilateral hydronephrosis Anasarca/ascitis. Ischemic cardiomyopathy CAD s/p recent CABG Stage 4 Colon cancer. Bladder wall thickening. Etiology unclear. Patient may have had radiotherapy in the past Low blood pressures.Improved. Urinary Difficulty: Most likely related to bladder abnormality. Abdominal Pain. Most likely related diverlticulosis/possible diverticulitis and colon cancer. UTI Presumed Diverticulitis/Colitis. Anemia of chronic illness and CKD. Possible Bladder outlet obstruction Plan Continue current treatments Follow renal function and electrolytes. No need for HD today. Will plan on dialysing patient tomorrow in line with outpatient schedule. Will monitor renal function and intake and output. Antmicrobial as per primary attending.
[2020-06-17] MEDS: Piperacillin/Tazobactam 2.25 GM in Sodium Chloride 0.9% 100 ML IVPB SCH ×2 (09:50→22:55)
[2020-06-17] MEDS: Rosuvastatin 20 MG TAB PO SCH (09:50)
[2020-06-17] MEDS: Heparin 5,000 UNITS/ML VIAL SC SCH ×3 (09:50→22:53)
[2020-06-17] MEDS: Aspirin Chewable 81 MG TAB PO SCH (09:50)
--- NOTE | 2020-06-17 11:52 | ULT ---
EXAM: Left lower extremity venous Doppler US HISTORY: left lower extremity edema and pain FINDINGS: Grayscale, color-flow, Doppler evaluation, spectral analysis of the left lower extremity venous struc tures is performed with 2-D imaging. The left common femoral, superficial femoral, popliteal, posterior tibial, proximal greater saphenous and profunda femoral veins are imaged. There is normal luminal compressibility, flow, and augmentation the visualized deep venous structures of the left lower extremity. IMPRESSION: No evidence of a deep vein thrombosis in the left lower extremity.
[2020-06-17 13:04] LABS: SARS-CoV-2 MS2 Positive; SARS-CoV-2 N Gene Negative; SARS-CoV-2 S Gene Negative; SARS-CoV-2 by NAA Not Detected (NotDetected); SARS-CoV-2 orf1ab Negative
--- NOTE | 2020-06-17 20:50 | CON ---
DATE OF CONSULTATION: 06/17/2020 REQUESTING PHYSICIAN: Jean Marquis MD REASON FOR CONSULTATION: Diarrhea with history of rectosigmoid adenocarcinoma. HISTORY OF PRESENT ILLNESS: Smith Palafox is a 70-year-old man, who speaks Yakut only and was seen today with the assistance of an spanish medical interpreter. History was also obtained through chart review. Mr. Palafox has an unfortunate history of rectosigmoid adenocarcinoma, which was diagnosed on colonoscopy with biopsies in January 2020. This was a very long segment tumor, but on initial evaluation with Oncology, it was felt to be potentially curative with no evidence of metastatic disease. He was seen by Dr. Lloyd and then underwent neoadjuvant radiation treatments ending in March 2020. Unfortunately, the patient also has severe coronary artery disease with ischemic cardiomyopathy and ejection fraction of only 25%. He underwent coronary artery bypass graft surgery in May 2020. This was complicated by postoperative acute renal failure and the patient unfortunately ended up requiring dialysis. The patient has remained on hemodialysis since that time, but unfortunately plans for rectosigmoid resection and any further cancer therapies had to be put on hold. The patient was admitted to the hospital yesterday with multiple complaints. He has some ongoing chronic abdominal discomfort in the lower abdomen, which is a bit worse recently, but he also has been having some difficulty urinating and also developed diarrhea. He says he is having quite frequent loose bowel movements in fact says it seems like he is having a bowel movement every 5 minutes. He describes these was generally watery. He had a single episode of blood tinge in the diarrhea yesterday, but no blood visible so far today. Upon admission, he was found to be chronically anemic, hemoglobin 8.8. His urinalysis is suggestive of urinary infection and a CT of the abdomen and pelvis unfortunately demonstrated moderate ascites, a 16 mm splenic lesion and new retroperitoneal lymphadenopathy along with persistent thickening in the rectosigmoid area, but also thickening of the urinary bladder and mild to moderate bilateral hydronephrosis. Stool studies have not been collected. He was started on IV Zosyn. Oncology, Urology, and Palliative Care teams have also been consulted. REVIEW OF SYSTEMS: The patient also complains of some ongoing pain and pruritus involving the feet bilaterally. Further review of systems including constitutional, head, eyes, ears, nose, throat, GI, , cardiovascular, respiratory, musculoskeletal, and neurologic systems is negative except as noted in the HPI. PAST MEDICAL HISTORY: Coronary artery disease with ischemic cardiomyopathy, coronary artery bypass graft surgery in May 2020, congestive heart failure with ejection fraction 25%, and end-stage renal disease, now on hemodialysis for the past month. Rectosigmoid adenocarcinoma, long segment, diagnosed January 2020, now status post radiation treatment ending in late March. Diabetes type 2, hyperlipidemia, hypertension, and nephrolithiasis. SOCIAL HISTORY: No smoking or alcohol use. FAMILY HISTORY: Noncontributory. ALLERGIES: NO KNOWN DRUG ALLERGIES. OUTPATIENT MEDICATIONS: 1. Crestor. 2. Insulin Lantus 20 units daily. 3. [place] p.r.n. 4. Coreg 3.125 mg b.i.d. 5. Aspirin 81 mg daily. INPATIENT MEDICATIONS: 1. Albumin 25 g x2 doses. 2. Aspirin 81 mg daily. 3. Heparin 5000 units subcutaneously t.i.d. 4. Zosyn 2.25 g IV q.12 hours. 5. Crestor 20 mg daily. PHYSICAL EXAMINATION: VITAL SIGNS: Temperature 98.3, pulse 82, blood pressure 106/57, and 95% oxygen saturation on room air. GENERAL: Chronically ill 70-year-old man, lying in bed comfortably, in no distress. MENTAL: He is alert and oriented. He is able to answer questions appropriately and converse through the chief risk officer. SKIN: No jaundice. No rashes were palpable. He does have some ecchymoses to the upper extremities. He has several wounds and a lot of excoriation to the feet bilaterally. EYES: No scleral icterus. Extraocular movements intact. ENT, poor dentition. Mucous membranes moist. LYMPH: No submandibular or supraclavicular lymphadenopathy. THYROID: Nontender to palpation. HEART: Regular rate and rhythm. He has sternotomy scar. LUNGS: Clear to auscultation bilaterally. ABDOMEN: Mild distention. Bowel sounds present, tympanitic to percussion. Soft. Some tenderness to palpation in the lower abdomen, but no guarding or rebound tenderness. No peritoneal signs. EXTREMITIES: 1 to 2+ bilateral lower extremity edema. NEURO: Cranial nerves 2 through 12 intact bilaterally. No focal deficits. LABORATORY STUDIES: Hemoglobin 8.8, WBC 8.7, and platelets 276. INR 1.2. Sodium 136, potassium 3.9, BUN 19, creatinine 4.17, glucose 149, calcium 7.9, and albumin 3.1. Troponin 0.06. Lipase only 5. Urinalysis shows greater than 50 rbc's, greater than 50 wbc's, and positive leukocyte esterase. COVID PCR is negative. IMAGING STUDIES: CT of the abdomen and pelvis demonstrates moderate ascites. There is a 16 mm splenic lesion. There is new retroperitoneal lymphadenopathy. He has persistence of thickening of the rectosigmoid colon, also now thickening of the bladder wall and mild to moderate bilateral hydronephrosis. ASSESSMENT AND PLAN: 1. Rectosigmoid adenocarcinoma, status post radiation therapy. 2. Rectal bleeding. a. I discussed the case with Nishi Brock from the Oncology Service. Unfortunately, it does not appear the patient is going to be a candidate for any curative therapy or surgical resection, given the unfortunate need for coronary artery bypass graft and acute renal failure resulting in hemodialysis initiation over the past couple of months. Now, the CT findings include retroperitoneal lymphadenopathy in the splenic lesion and this concerns me for possible development of metastatic disease. It appears that hospice was entertained briefly during his last admission, and that would certainly be appropriate to revisit that conversation at this time. Palliative Care has been consulted as well. I do not see any need for repeat endoscopic examination, as I do not think this would change our clinical management at all. 3. Lower abdominal pain. The patient has some bilateral hydronephrosis with bladder thickening and evidence of urinary tract infection on urinalysis. This is in the context of recent radiation treatments to the lower abdomen. Urology has been consulted. The patient is on Zosyn. He is not really having any symptoms to suggest partial or impending colonic obstruction. 4. Diarrhea. The patient reports significant new watery diarrhea over the past week. We are going to order stool studies including C. difficile assay. We will follow up on these and treat supportively in the meantime. Thank you for the consultation. Please call anytime with questions or concerns. Job ID: [id number]
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
--- NOTE | 2020-06-18 00:14 | CON ---
DATE OF CONSULTATION: 06/17/2020 REASON FOR CONSULTATION: 1. Dysuria and abdominal pain. 2. Bladder wall thickening following radiation therapy for rectosigmoid cancer. 3. New onset bilateral hydronephrosis. 4. Acute renal insufficiency with low urine output, requiring hemodialysis. 5. Rectal bleeding with history of recent radiotherapy for rectosigmoid cancer. 6. Diarrhea. 7. Low urine output. 8. Recent history of coronary artery disease, status post recent coronary artery bypass graft. BRIEF HISTORY: Mr. Smith Palafox is a very pleasant 70-year-old Syriac-speaking only male, who presented to the emergency department on 06/16/2020 with a complaint of dysuria. He has renal insufficiency of relative recent onset with low urine output. Patient is currently on hemodialysis and presented to the emergency department with a complaint of difficulty with urination and abdominal pain present for about one week. He also reported cramping episodes of diarrhea with blood. Patient had hemodialysis on 06/14/2020, but he had abdominal pain. I have been asked to see the patient regarding posterior bladder wall thickening adjacent to his recently radiated rectosigmoid colon. PAST MEDICAL HISTORY: 1. Rectosigmoid adenocarcinoma. 2. Colon cancer. 3. Diabetes mellitus, type 2. 4. Hyperlipidemia. 5. Coronary artery disease, status post recent coronary artery bypass graft. 6. Hypertension. 7. Bilateral hydronephrosis of new onset. 8. Bladder wall thickening in field of recent radiation and also adjacent to a known rectosigmoid cancer. SOCIAL HISTORY: Patient does not currently smoke or drink alcohol. FAMILY HISTORY: Not notable for history of disorders. ALLERGIES: NO DRUG ALLERGIES. REVIEW OF SYSTEMS: There is a language barrier. Patient reports some lower abdominal pain symptoms. Does not report current chest pain. He does not report voiding well, but does report some blood in his urine and in his stool. Reports diarrhea. PHYSICAL EXAMINATION: GENERAL: This is a pleasant awake, alert, Syriac-speaking only male, in no apparent distress. VITAL SIGNS: Patient's temperature is 98.3, pulse 81, respiratory rate 22, and blood pressure is 111/56. HEAD, EYES, EARS, NOSE, AND THROAT: Extraocular movements are intact. Sclerae are anicteric. Oropharynx is clear. LUNGS: Clear to auscultation bilaterally. CARDIAC: Regular rate and rhythm. ABDOMEN: Soft and nontender, but some distention is present. Percussion reveals some increased resonance anteriorly. GENITOURINARY: Phallus is without lesion and is uncircumcised. Testes found present bilaterally in scrotum. They are smooth, anodular, and nontender. There is minimal edema of the scrotum. RECTAL: Digital rectal examination is performed. Patient's rectal wall is hard and thickened consistent with a known history of rectosigmoid cancer with radiation. There was no significant bleeding at the present time. I am not actually able to palpate his prostate gland. I feel it is hardened, appears to be rectal cancer. LABORATORY STUDIES: 1. Urinalysis from 07/16/2020 showed greater than 50 red cells per high-power field, greater than 50 white cells per high-power field, positive for blood and leukocyte esterase. Urine, bacteria 4+ and hyaline casts were present, 21 to 50 level. Urine gravity was 1.031. 2. Microbiology urine culture remains pending [address] scan of the abdomen and pelvis is reviewed. Briefly, from a genitourinary standpoint, the patient's bilateral kidneys demonstrate number of cysts. There is hydronephrosis or parapelvic cysts are present. Patient's upper ureter on both sides does appear to be hydronephrotic, subcapsular fluid collection in the left kidney. The patient appears to have some degree of ascites in the abdomen, most notable adjacent in the patient's spleen and to the right kidney. 4. Some of the ascites extends into the lower abdomen and the bowels. Patient's bladder at the time of examination appears to have some urine within it. There is what appears to be bladder wall thickening or possibly a clot or other material in the posterior aspect of the bladder. This could represent pyocystis in the bladder as well or simply radiation cystitis. The rectum in the adjacent area does not appear to directly communicate with the patient's bladder. Prostate does not appear to be overly enlarged. 5. Seminal vesicles appear benign and do not appear to be invaded by the rectosigmoid cancer. ASSESSMENT AND PLAN: 1. Bilateral hydronephrosis and hydroureter. Patient appears to have enough parenchyma on his kidneys that properly drained. He may have some recoverable function. 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 In this setting, bilateral percutaneous nephrostomy tubes would appear appropriate. 2. Bladder findings most likely either radiation cystitis or pyocystis. Would recommend placement of Zambrano catheter and bladder irrigation to verify whether this is pyocystis or blood clots from the patient's bladder. The general findings observed the patient's kidneys bilaterally suggest pop-off aspect of the patient's fluid collection around the patient's left kidney and also around the ureter at the upper aspect suggests the urine leaking subcapsular way into surrounding tissue. I do not believe this is the cause of the patient's ascites, however. 3. Rectosigmoid adenocarcinoma. Patient is now status post radiation therapy and is what appeared to be retroperitoneal lymphadenopathy which could be involved occlusion process in the patient's ureters. Patient's bladder findings may also reflect radiation cystitis significant enough to result in occlusion of the patient's distal ureters. At the present time, I think percutaneous nephrostomy tubes bilaterally is relevant in this patient's case could start off a single tube on that side and proceed to a second tube if this yields benefit. His anticoagulation status may play a role in decision making. Job ID: [id number]
[2020-06-18 06:02] LABS: Anion Gap 17 mmol/L (10-20); BUN (Urea Nitrogen) 28 mg/dL (8.4-25.7); Calc. Creatinine Clearance 16 mL/min (70-130); Calcium 8.1 mg/dL (7.8-10.44); Carbon Dioxide 25 mmol/L (23-31); Chloride 98 mmol/L (98-107); Estimated GFR-MDRD 11; Glucose 83 mg/dL (83-110); Potassium 3.9 mmol/L (3.5-5.1); Sodium 136 mmol/L (136-145)
[2020-06-18 08:37] LABS: INR-International Normal Ratio 1.3; PTT 37.7 sec (22.9-36.1); Prothrombin Time 15.7 sec (12.0-14.7)
[2020-06-18] MEDS ORDERED: Heparin 10,000 UNITS/ 10 ML VIAL ONE (10:00)
[2020-06-18 10:05] LABS: Hemoglobin 8.9 g/dL (14.0-18.0); Red Blood Cell (RBC) Count 3.17 mill/uL (4.70-6.10); White Blood Cell (WBC) Count 10.2 thou/uL (4.8-10.8)
[2020-06-18] MEDS: Heparin 5,000 UNITS/ML VIAL SC SCH ×3 (10:05→20:25)
[2020-06-18 10:06] LABS: #Eosinphils 0.6 thou/uL (0.0-0.7); %Basophils 0.2 % (0.0-1.0); %Eosinophils 6.3 % (0.0-10.0); %Lymphocytes 5.6 % (21.0-51.0); %Neutrophils 77.9 % (42.0-75.0); MDiff Complete? YES; Mean Corpuscular HGB CONC 31.6 g/dL (32.0-36.0); Mean Corpuscular Hemoglobin 28.1 pg (27.0-31.0); Mean Corpuscular Volume 88.9 fL (78.0-98.0); Mean Platelet Volume 6.8 fL (7.4-10.4); Platelet Count 325 thou/uL (130-400); RBC Distribution Width 14.5 % (11.5-14.5)
[2020-06-18 10:07] LABS: #Lymphocytes 0.6 thou/uL (1.20-3.40)
--- NOTE | 2020-06-18 11:21 | PDOC.NEPPN ---
- Subjective Encounter Date: 06/18/20 Encounter Time: 10:03 Subjective: Seen in follow up for AAY[facility] due to ATN requiring HD. Due to HD today. Still having intermittent abdominal pain loose stools. Denied further hematochezia. - Objective Vital Signs & Weight: Vital Signs (12 hours) Temp Pulse Resp BP Pulse Ox 06/18/20 07:37 98.3 F 91 24 H 102/56 L 95 Weight Admit Weight 199 lb Weight 199 lb I&O: 06/17/20 06/18/20 06/19/20 06:59 06:59 06:59 Intake Total 1500 Output Total 10 Balance 1490 Result Diagrams: 06/18/20 03:09 06/18/20 03:30 Additional Labs: Accuchecks 06/18/20 06/18/20 06/17/20 10:30 05:51 20:31 POC Glucose 95 99 237 H 06/17/20 16:52 POC Glucose 135 H Nephrology ROS - Medication Medications: Active Medications Generic Name Dose Route Start Last Admin Trade Name Freq PRN Reason Stop Dose Admin Hydrocodone Bitart/Acetaminophen 1 tab 06/17/20 09:00 06/18/20 10:35 [place] 5/325 PO 1 tab Q4H PRN Administration Mild-Moderate Pain (1-5) Aspirin 81 mg 06/17/20 09:00 06/17/20 09:50 Aspirin Chewable PO 81 mg DAILY SHANNON Administration Heparin Sodium (Porcine) 5,000 units 06/17/20 09:00 06/18/20 10:05 Heparin SC Not Given TID SHANNON Piperacillin Sod/Tazobactam 100 mls @ 200 mls/hr 06/17/20 09:00 06/17/20 22:55 Sod 2.25 gm/ Sodium Chloride IVPB 100 mls BID SHANNON Administration Insulin Human Lispro 0 units 06/17/20 00:19 06/17/20 22:52 Humalog SC 3 unit .MILD SLIDING SCALE PRN Administration Mild Correctional Scale Rosuvastatin Calcium 20 mg 06/17/20 09:00 06/17/20 09:50 Crestor PO 20 mg DAILY SHANNON Administration - Exam General Appearance: awake alert Eye: anicteric sclera ENT: normocephalic atraumatic, moist mucosa Neck: supple, symmetric Respiratory - other findings: fair air entry bilaterally with bibasal crackles Cardiovascular: RRR Gastrointestinal: soft, normal bowel sounds Gastrointestinal - other findings: mild lower abdominal renderness Extremities - other findings: Mild right and moderate left leg edema Neurological: CN's grossly intact Musculoskeletal: generalized weakness PSYCH: A&O x 3 Nephrology Results - Labs Result Diagrams: 06/18/20 03:09 06/18/20 03:30 Lab results: WBC 10.2 thou/uL (4.8-10.8) 06/18/20 03:09 Hgb 8.9 g/dL (14.0-18.0) L 06/18/20 03:09 Hct 28.2 % (42.0-52.0) L 06/18/20 03:09 MCV 88.9 fL (78.0-98.0) 06/18/20 03:09 Plt Count 325 thou/uL (130-400) 06/18/20 03:09 Neutrophils % 77.9 % (42.0-75.0) H 06/18/20 03:09 Sodium 136 mmol/L (136-145) 06/18/20 03:30 Potassium 3.9 mmol/L (3.5-5.1) 06/18/20 03:30 Chloride 98 mmol/L (98-107) 06/18/20 03:30 Carbon Dioxide 25 mmol/L (23-31) 06/18/20 03:30 BUN 28 mg/dL (8.4-25.7) H 06/18/20 03:30 Creatinine 5.34 mg/dL (0.7-1.3) H 06/18/20 03:30 Glucose 83 mg/dL (83-110) 06/18/20 03:30 Lactic Acid 1.1 mmol/L (0.5-2.2) 06/16/20 17:21 Calcium 8.1 mg/dL (7.8-10.44) 06/18/20 03:30 Total Bilirubin 0.5 mg/dL (0.2-1.2) 06/16/20 15:38 AST 14 U/L (5-34) 06/16/20 15:38 ALT 9 U/L (8-55) 06/16/20 15:38 Alkaline Phosphatase 93 U/L (40-110) 06/16/20 15:38 CK-MB (CK-2) 0.8 ng/mL (0-6.6) 06/16/20 15:38 Troponin I 0.060 ng/mL (< 0.028) H 06/16/20 15:38 Serum Total Protein 6.0 g/dL (5.8-8.1) 06/16/20 15:38 Albumin 3.1 g/dL (3.4-4.8) L 06/17/20 04:19 Lipase 5 U/L (8-78) L 06/16/20 15:38 Urine Ketones Negative mg/dL (Negative) 06/16/20 16:46 Urine Blood 1+ (Negative) A 06/16/20 16:46 Urine Nitrite Negative (Negative) 06/16/20 16:46 Ur Leukocyte Esterase 25 Bev/uL (Negative) A 06/16/20 16:46 Urine RBC Greater than 50 HPF (0-3) A 06/16/20 16:46 Urine WBC Greater than 50 HPF (0-3) A 06/16/20 16:46 Ur Squamous Epith Cells 4-6 HPF (0-3) A 06/16/20 16:46 Urine Bacteria 4+ HPF (None Seen) A 06/16/20 16:46 Nephrology AP PN (1) Acute renal failure due to tubular necrosis Code(s): N17.0 - ACUTE KIDNEY FAILURE WITH TUBULAR NECROSIS Status: Acute (2) Hematochezia Code(s): K92.1 - MELENA Status: Acute (3) Edema Code(s): R60.9 - EDEMA, UNSPECIFIED Status: Acute (4) Abdominal ascites Code(s): R18.8 - OTHER ASCITES Status: Acute (5) Ischemic cardiomyopathy Code(s): I25.5 - ISCHEMIC CARDIOMYOPATHY Status: Acute (6) Anemia in chronic kidney disease (CKD) Code(s): N18.9 - CHRONIC KIDNEY DISEASE, UNSPECIFIED; D63.1 - ANEMIA IN CHRONIC KIDNEY DISEASE Status: Acute (7) Bilateral hydronephrosis Code(s): N13.30 - UNSPECIFIED HYDRONEPHROSIS Status: Acute (8) UTI (urinary tract infection) Status: Acute Qualifiers: Urinary tract infection type: acute cystitis Hematuria presence: without hematuria Qualified Code(s): N30.00 - Acute cystitis without hematuria (9) DM type 2 (diabetes mellitus, type 2) Status: Chronic - Plan Acute renal failure due to ATN on HD. Contribution of newly found bilateral hydronephrosis is unclear. No evidence of renal recovery as yet. Bilateral hydronephrosis Anasarca/ascitis. Ischemic cardiomyopathy CAD s/p recent CABG Colon cancer. Bladder wall thickening. Etiology unclear. Patient may have had radiotherapy in the past Low blood pressures.Improved. Urinary Difficulty: Most likely related to bladder abnormality. Abdominal Pain. Most likely related diverlticulosis/possible diverticulitis and colon cancer. UTI Presumed Diverticulitis/Colitis. Anemia of chronic illness and CKD. Possible Bladder outlet obstruction Plan Will dialyze patient with UF as tolerated. Continue other treatments Will monitor renal function and intake and output.
[2020-06-18] MEDS: Morphine 2 MG/ML VIAL SLOW IVP PRN (12:22)
[2020-06-18] MEDS: Rosuvastatin 20 MG TAB PO SCH (12:23)
[2020-06-18] MEDS: Piperacillin/Tazobactam 2.25 GM in Sodium Chloride 0.9% 100 ML IVPB SCH ×2 (12:23→20:25)
--- NOTE | 2020-06-18 12:29 | PDOC.PALCO ---
Palliative Care Consult - Consult Details Requesting Physician: Dr Ellis Reason for Consult: goals of care, advance directives assistance, assistance with communication prognosis/disease, complex decision-making - Pertinent HPI Mr Palafox is familiar to the Palliative Care Team. He was recently discharged to rehab with a lifevest and continuation of hemodialysis. He has a Colon cancer and pending surgery and continuation of chemo if he regains strength. He had pe rsistent and increasing abdominal pain paired with diarrhea, poor oral intake presenting to the emergency room for evaluation of worsening abdominal pain. Multiple admissions in past 6 months. At one point Mr Palafox elected to transition to hospice, however his family struggled with this decision and he elected to revocate and continue with treatment and aggressive measures. 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 Loose stools. - ROS Constitutional: alert, weakness ENT: other (denies difficulity swallowing, congestion) Respiratory: shortness of breath Cardiology: other (negative for chest pain, palpitations) Gastrointestinal: abdominal pain, diarrhea, other Musculoskeletal: arthritis/arthralgias Psychological: other (denies depression or anxiety) - Objective Vital Signs: Vital Signs - Most Recent Temp Pulse Resp BP Pulse Ox 98.3 F 91 24 H 102/56 L 95 06/18/20 07:37 06/18/20 07:37 06/18/20 07:37 06/18/20 07:37 06/18/20 07:37 Palliative Performance Scale: 40 - Physical Exam Constitutional: ill appearing HEENT: EOMI, moist MMs, sclera anicteric Respiratory: clear to auscultation bilateral, no rhonchi, no wheezing Cardiovascular: RRR Deviation from normal: distended Musculoskeletal: no cyanosis, no clubbing, edema present Neurology: moves all 4 limbs, no focal deficits Psychiatric: A&O x 3, normal affect - Problem List (1) Acute renal failure due to tubular necrosis Code(s): N17.0 - ACUTE KIDNEY FAILURE WITH TUBULAR NECROSIS Current Visit: Yes Status: Acute (2) Anemia in chronic kidney disease (CKD) Code(s): N18.9 - CHRONIC KIDNEY DISEASE, UNSPECIFIED; D63.1 - ANEMIA IN CHRONIC KIDNEY DISEASE Current Visit: Yes Status: Acute (3) Acute on chronic systolic (congestive) heart failure Code(s): I50.23 - ACUTE ON CHRONIC SYSTOLIC (CONGESTIVE) HEART FAILURE Current Visit: No Status: Acute (4) Palliative care encounter Code(s): Z51.5 - ENCOUNTER FOR PALLIATIVE CARE Current Visit: No Status: Acute (5) Rectal mass Code(s): K62.89 - OTHER SPECIFIED DISEASES OF ANUS AND RECTUM Current Visit: No Status: Acute - Plan/Recommendations Plan: Mr Palafox today is stating a desire to return to the home setting. Attempting to establish a family meeting with [id number] who is Mohawk speaking, patient son, and of patient. Will also utilize puller out services for family meeting. The family and patient have poor health literacy and difficulty grasping multiple morbidities paired with disease trajectory. Family meeting will be in an attempt to * Revisit consideration of a single percutaneous nephrostomy tube, as per Dr Grullon and advance to a second if benefit is achieved. *Discuss dialysis, pain associated with it, *Not an optimal candidate for surgical or chemotherapy intervention related to inability to bridge to further interventions for rectal cancer as he has had further medical complications leading to need for life vest and hemodialysis. *After reviewing above to revisit Goal of Care and patient wish to return home verses continuation with rehab. Note is he was having difficulty tolerating rehab secondary to persistent weakness. *Attempt to address Directive to Physicians ECOG 3 PPS 40 (transitioning to a 30) [50] minutes spent on this encounter with >50% of the time in counseling and coordination of care. Thank you for this very appropriate consult.
--- NOTE | 2020-06-18 14:24 | PDOC.HOSPP ---
- Subjective Encounter Date: 06/18/20 Encounter Time: 09:00 Subjective: overnight, patient refused chery catheter. This morning, long conversation with patient via wing commander. Patient continues to refuse Chery and is no decisive about nephrostomy procedure. Complains of diffuse lower abdominal pain. - Objective Vital Signs & Weight: Vital Signs (12 hours) Temp Pulse Resp BP Pulse Ox 06/18/20 12:10 98.7 F 99 20 100/56 L 94 L 06/18/20 07:37 98.3 F 91 24 H 102/56 L 95 Weight Admit Weight 199 lb Weight 199 lb I&O: 06/17/20 06/18/20 06/19/20 06:59 06:59 06:59 Intake Total 1500 Output Total 10 Balance 1490 Result Diagrams: 06/18/20 03:09 06/18/20 03:30 Additional Labs: Accuchecks 06/18/20 06/18/20 06/17/20 10:30 05:51 20:31 POC Glucose 95 99 237 H 06/17/20 16:52 POC Glucose 135 H Hospitalist ROS - Review of Systems Constitutional: denies: fever, chills, sweats Respiratory: denies: cough, shortness of breath Cardiovascular: denies: chest pain Gastrointestinal: reports: abdominal pain. denies: nausea, vomiting, diarrhea, constipation, melena, hematochezia - Medication Medications: Active Medications Generic Name Dose Route Start Last Admin Trade Name Freq PRN Reason Stop Dose Admin Hydrocodone Bitart/Acetaminophen 1 tab 06/17/20 09:00 06/18/20 10:35 [place] 5/325 PO 1 tab Q4H PRN Administration Mild-Moderate Pain (1-5) Aspirin 81 mg 06/17/20 09:00 06/17/20 09:50 Aspirin Chewable PO 81 mg DAILY SHANNON Administration Heparin Sodium (Porcine) 5,000 units 06/17/20 09:00 06/18/20 10:05 Heparin SC Not Given TID SHANNON Piperacillin Sod/Tazobactam 100 mls @ 200 mls/hr 06/17/20 09:00 06/18/20 12:23 Sod 2.25 gm/ Sodium Chloride IVPB 100 mls BID SHANNON Administration Insulin Human Lispro 0 units 06/17/20 00:19 06/17/20 22:52 Humalog SC 3 unit .MILD SLIDING SCALE PRN Administration Mild Correctional Scale Morphine Sulfate 2 mg 06/17/20 00:17 06/18/20 12:22 Morphine SLOW IVP 2 mg Q4H PRN Administration Severe Pain (7-10) Rosuvastatin Calcium 20 mg 06/17/20 09:00 06/18/20 12:23 Crestor PO 20 mg DAILY SHANNON Administration - Exam General Appearance: NAD, awake alert Eye: PERRL, anicteric sclera Neck: no JVD Heart: RRR, no murmur, no gallops, no rubs Respiratory: CTAB, no wheezes, no ronchi Respiratory - other findings: mild bibasilar inspiratory rales Gastrointestinal: soft, normal bowel sounds Gastrointestinal - other findings: midly distended, mildly tender at lower field Extremities - other findings: LLE edema pitting edema. minimal RLE edema Psychiatric: oriented to person, oriented to place, flat affect. 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
--- NOTE | 2020-06-18 17:11 | PRG ---
DATE OF SERVICE: SUBJECTIVE: The patient reports having lower abdominal pain. There is no nausea or vomiting. He continues to have small volume mucoid loose stool with some blood. Stool studies ordered yesterday have not been collected. PHYSICAL EXAMINATION: VITAL SIGNS: Temperature is 98.8, blood pressure 102/57, pulse of 95. GENERAL: He is alert, no distress. HEENT: Shows anicteric sclerae. CV: Shows normal S1, S2. Regular rate and rhythm. CHEST: Shows breath sounds. ABDOMEN: Protuberant, slightly tympanitic, but not distended. He does have bowel sounds. No significant tenderness even in the lower quadrant. EXTREMITIES: Show 1+ edema. LABORATORY DATA: WBCs 10.2, hemoglobin 8.9, and platelet count of 325. Electrolytes within normal range. Creatinine 5.34. ASSESSMENT: 1. Rectosigmoid adenocarcinoma, status post radiation therapy. Not a candidate for surgery in current condition. 2. Mucoid loose stool with blood, likely from tumor. The patient possibly could have some overflow type loose stool if the tumor is obstructing. Stool studies that was ordered yesterday, however, stool samples have not been collected. 3. Bilateral hydronephrosis with bladder wall thickening. This could account for lower abdominal pain if he has some degree of obstructive uropathy and urinary tract infection. RECOMMENDATIONS: 1. We will follow up on stool studies that have been ordered. 2. Otherwise, no other recommendation from GI standpoint. 3. Palliative care with planned family conference. Job ID: [id number] MTDD
[2020-06-19 04:32] LABS: #Eosinphils 0.7 thou/uL (0.0-0.7); #Lymphocytes 0.7 thou/uL (1.20-3.40); #Neutrophils 7.6 thou/uL (1.40-6.50); %Basophils 0.2 % (0.0-1.0); %Eosinophils 6.6 % (0.0-10.0); %Lymphocytes 7.1 % (21.0-51.0); %Monocytes 10.1 % (0.0-10.0); Hemoglobin 8.9 g/dL (14.0-18.0); Mean Corpuscular HGB CONC 32.4 g/dL (32.0-36.0); Mean Corpuscular Hemoglobin 28.7 pg (27.0-31.0); Mean Corpuscular Volume 88.7 fL (78.0-98.0); Mean Platelet Volume 6.7 fL (7.4-10.4); Platelet Count 338 thou/uL (130-400); RBC Distribution Width 14.4 % (11.5-14.5)
[2020-06-19 04:58] LABS: Anion Gap 15 mmol/L (10-20); BUN (Urea Nitrogen) 19 mg/dL (8.4-25.7); Calc. Creatinine Clearance 20 mL/min (70-130); Calcium 8.1 mg/dL (7.8-10.44); Carbon Dioxide 26 mmol/L (23-31); Chloride 99 mmol/L (98-107); Estimated GFR-MDRD 14; Glucose 112 mg/dL (83-110); Magnesium 1.9 mg/dL (1.6-2.6); Potassium 4.1 mmol/L (3.5-5.1); Sodium 136 mmol/L (136-145)
[2020-06-19] MEDS: Morphine 2 MG/ML VIAL SLOW IVP PRN (08:45)
[2020-06-19] MEDS: Heparin 5,000 UNITS/ML VIAL SC SCH ×3 (08:46→20:03)
[2020-06-19] MEDS: Piperacillin/Tazobactam 2.25 GM in Sodium Chloride 0.9% 100 ML IVPB SCH ×2 (08:48→20:03)
[2020-06-19] MEDS: Rosuvastatin 20 MG TAB PO SCH (09:25)
--- NOTE | 2020-06-19 10:01 | PDOC.PALFU ---
Palliative Care Follow-up Note Family conference was scheduled for 10am, however family delayed and will attempt to come this afternoon. Plan to meet before 2pm 06/19/2020, awaiting on specific time.
--- NOTE | 2020-06-19 11:17 | PDOC.NEPPN ---
- Subjective Encounter Date: 06/19/20 Encounter Time: 11:15 Subjective: Seen in follow up for renal failure requiring HD. Last Hd was yesterday 06/18/2020. Still having diarrhea. no fever, or abdominal pain. Discussion about transitioning to hospice care in view of colorectal cancer in progress. Wants to go home. - Objective Vital Signs & Weight: Vital Signs (12 hours) Temp Pulse Resp BP Pulse Ox 06/19/20 07:18 98.6 F 92 20 112/59 L 94 L 06/19/20 04:00 98.1 F 94 19 109/61 96 Weight Admit Weight 199 lb Weight 190 lb I&O: 06/18/20 06/19/20 06/20/20 06:59 06:59 06:59 Intake Total 1500 1550 Output Total 10 0 Balance 1490 1550 Result Diagrams: 06/19/20 04:16 06/19/20 04:16 Additional Labs: Accuchecks 06/18/20 06/18/20 20:37 17:07 POC Glucose 171 H 107 H Nephrology ROS - Medication Medications: Active Medications Generic Name Dose Route Start Last Admin Trade Name Freq PRN Reason Stop Dose Admin Hydrocodone Bitart/Acetaminophen 1 tab 06/17/20 09:00 06/18/20 10:35 [place] 5/325 PO 1 tab Q4H PRN Administration Mild-Moderate Pain (1-5) Aspirin 81 mg 06/17/20 09:00 06/17/20 09:50 Aspirin Chewable PO 81 mg DAILY SHANNON Administration Heparin Sodium (Porcine) 5,000 units 06/17/20 09:00 06/19/20 08:46 Heparin SC 5,000 units TID SHANNON Administration Piperacillin Sod/Tazobactam 100 mls @ 200 mls/hr 06/18/20 21:00 06/19/20 08:48 Sod 2.25 gm/ Sodium Chloride IVPB 100 mls Q12H SHANNON Administration Insulin Human Lispro 0 units 06/17/20 00:19 06/17/20 22:52 Humalog SC 3 unit .MILD SLIDING SCALE PRN Administration Mild Correctional Scale Morphine Sulfate 2 mg 06/17/20 00:17 06/19/20 08:45 Morphine SLOW IVP 2 mg Q4H PRN Administration Severe Pain (7-10) Rosuvastatin Calcium 20 mg 06/17/20 09:00 06/19/20 09:25 Crestor PO 20 mg DAILY SHANNON Administration - Exam General Appearance: awake alert Eye: anicteric sclera ENT: normocephalic atraumatic Neck: supple, symmetric, no JVD Respiratory - other findings: Fair air entry bilaterally with some transmitted sound Cardiovascular: RRR Gastrointestinal: soft, non-tender, normal bowel sounds Extremities - other findings: Mild right and moderate legt leg edema Neurological: CN's grossly intact PSYCH: A&O x 3 Nephrology Results - Labs Result Diagrams: 06/19/20 04:16 06/19/20 04:16 Lab results: WBC 10.0 thou/uL (4.8-10.8) 06/19/20 04:16 Hgb 8.9 g/dL (14.0-18.0) L 06/19/20 04:16 Hct 27.5 % (42.0-52.0) L 06/19/20 04:16 MCV 88.7 fL (78.0-98.0) 06/19/20 04:16 Plt Count 338 thou/uL (130-400) 06/19/20 04:16 Neutrophils % 76.0 % (42.0-75.0) H 06/19/20 04:16 Sodium 136 mmol/L (136-145) 06/19/20 04:16 Potassium 4.1 mmol/L (3.5-5.1) 06/19/20 04:16 Chloride 99 mmol/L (98-107) 06/19/20 04:16 Carbon Dioxide 26 mmol/L (23-31) 06/19/20 04:16 BUN 19 mg/dL (8.4-25.7) 06/19/20 04:16 Creatinine 4.18 mg/dL (0.7-1.3) H 06/19/20 04:16 Glucose 112 mg/dL (83-110) H 06/19/20 04:16 Lactic Acid 1.1 mmol/L (0.5-2.2) 06/16/20 17:21 Calcium 8.1 mg/dL (7.8-10.44) 06/19/20 04:16 Total Bilirubin 0.5 mg/dL (0.2-1.2) 06/16/20 15:38 AST 14 U/L (5-34) 06/16/20 15:38 ALT 9 U/L (8-55) 06/16/20 15:38 Alkaline Phosphatase 93 U/L (40-110) 06/16/20 15:38 CK-MB (CK-2) 0.8 ng/mL (0-6.6) 06/16/20 15:38 Troponin I 0.060 ng/mL (< 0.028) H 06/16/20 15:38 Serum Total Protein 6.0 g/dL (5.8-8.1) 06/16/20 15:38 Albumin 3.1 g/dL (3.4-4.8) L 06/17/20 04:19 Lipase 5 U/L (8-78) L 06/16/20 15:38 Urine Ketones Negative mg/dL (Negative) 06/16/20 16:46 Urine Blood 1+ (Negative) A 06/16/20 16:46 Urine Nitrite Negative (Negative) 06/16/20 16:46 Ur Leukocyte Esterase 25 Bev/uL (Negative) A 06/16/20 16:46 Urine RBC Greater than 50 HPF (0-3) A 06/16/20 16:46 Urine WBC Greater than 50 HPF (0-3) A 06/16/20 16:46 Ur Squamous Epith Cells 4-6 HPF (0-3) A 06/16/20 16:46 Urine Bacteria 4+ HPF (None Seen) A 06/16/20 16:46 Nephrology AP PN (1) Acute renal failure due to tubular necrosis Code(s): N17.0 - ACUTE KIDNEY FAILURE WITH TUBULAR NECROSIS Status: Acute (2) Hematochezia Code(s): K92.1 - MELENA Status: Acute (3) Edema Code(s): R60.9 - EDEMA, UNSPECIFIED Status: Acute (4) Abdominal ascites Code(s): R18.8 - OTHER ASCITES Status: Acute (5) Ischemic cardiomyopathy Code(s): I25.5 - ISCHEMIC CARDIOMYOPATHY Status: Acute (6) Anemia in chronic kidney disease (CKD) Code(s): N18.9 - CHRONIC KIDNEY DISEASE, UNSPECIFIED; D63.1 - ANEMIA IN CHRONIC KIDNEY DISEASE Status: Acute (7) Bilateral hydronephrosis Code(s): N13.30 - UNSPECIFIED HYDRONEPHROSIS Status: Acute (8) UTI (urinary tract infection) Status: Acute Qualifiers: Urinary tract infection type: acute cystitis Hematuria presence: without hematuria Qualified Code(s): N30.00 - Acute cystitis without hematuria (9) DM type 2 (diabetes mellitus, type 2) Status: Chronic - Plan Acute renal failure due to ATN on HD. Contribution of newly found bilateral hyd ronephrosis is unclear. No evidence of renal recovery as yet. Bilateral hydronephrosis Anasarca/ascitis.Improving with HD Ischemic cardiomyopathy CAD s/p recent CABG Colon cancer. Bladder wall thickening. Etiology unclear. Patient may have had radiotherapy in the past Low blood pressures. Improved. Dysuria: Most likely related to bladder abnormality +/- UTI Abdominal Pain. Most likely related diverticulosis/possible diverticulitis and colon cancer. Improved UTI Presumed Diverticulitis/Colitis. Anemia of chronic illness and CKD. Possible Bladder outlet obstruction Discussion/Plan Continue supportive care. Can be discharged to continue outpatient HD. I think patient can benefit from hospice care since he is not a candidate at this point for any treatment for his colorectal cancer. He can continue dialysis even on hospice.
--- NOTE | 2020-06-19 15:52 | PDOC.PALPN ---
Palliative Progress Note - Objective Vital Signs: Vital Signs - Most Recent Temp Pulse Resp BP Pulse Ox 97.8 F 92 20 110/58 L 95 06/19/20 11:20 06/19/20 11:20 06/19/20 11:20 06/19/20 11:20 06/19/20 11:20 - Assessment (1) Acute renal failure due to tubular necrosis Code(s): N17.0 - ACUTE KIDNEY FAILURE WITH TUBULAR NECROSIS Current Visit: Yes Status: Acute (2) Anemia in chronic kidney disease (CKD) Code(s): N18.9 - CHRONIC KIDNEY DISEASE, UNSPECIFIED; D63.1 - ANEMIA IN CHRONIC KIDNEY DISEASE Current Visit: Yes Status: Acute (3) Acute on chronic systolic (congestive) heart failure Code(s): I50.23 - ACUTE ON CHRONIC SYSTOLIC (CONGESTIVE) HEART FAILURE Current Visit: No Status: Acute (4) Palliative care encounter Code(s): Z51.5 - ENCOUNTER FOR PALLIATIVE CARE Current Visit: No Status: Acute (5) Rectal mass Code(s): K62.89 - OTHER SPECIFIED DISEASES OF ANUS AND RECTUM Current Visit: No Status: Acute - Plan Plan: Lengthy conversation with Patient, , and son Brenden. Supervisor Nuclear Medicine used ([employer] [id number]) (5 children with their spouses and grand children live in [place]) Reviewed disease processes individually and impact on poor meaningful recovery. Poor health/medical literacy. Patient unable to perform "teach back" in basic terms to relay understanding of complexity of multiple morbidities as well as understanding of life limiting prognosis. Attempted to discuss resuscitation status, patient states "God will take me when he is ready" in attempting to correlate with DNAR and man keeping him alive he refers back to statement that "God will do what he desires" Patient is electing to pursue no further surgeries or treatments other than dialysis and medication management (At this time) *Consideration for transition to hospice under cancer diagnosis allowing ability to continue with dialysis as not a related diagnosis. *Preference in Goal of Care would be to go to [place] to see his children (Children in [place] attempted to work with immigration to come here secondary to Mr Palafox's poor health but were denied) *Communicated with Dr Cooper and if patient transitions home with hospice he stated that a consideration would be to have [facility] coordinate transfer to a dialysis center close to Mr Palafox's children in [place]. *Discussed fragile state of Mr Palafox and risk verses benefit of lengthy travel (24+ hour trip by car) with patient, spouse, and Brenden *Discussed setting up Zoom at home and being able to "Video" with family in [place] (Brenden said he could help with this) Mr Palafox's ultimate goal is to return home as soon as possible. We discussed identifying an optimal discharge to prevent readmissions and allow for optimal quality of life as his stated preference is home setting. Patient and family hope to discuss 1) Transition home with Hospice and continuation of Dialysis to see if ultimate goal of going to [place] can be met. If not transition to [place] hospice to facilitate communication via video with family 2) Transition home with home health, dialysis Palliative Care has a follow up family meeting 06/20/2020 at1 pm after patient dialysis with spouse and Brenden to ensure Goal of care is realistic paired with fragile health state/multiple morbidities/and patient expectations Communicated with Dr Ellis. Supervisor Nuclear Medicine service Salome states she can assist in follow up meeting. [90] minutes spent on this encounter with >50% of the time in counseling and coordination of care.
--- NOTE | 2020-06-19 21:17 | PDOC.HOSPP ---
- Subjective Encounter Date: 06/19/20 Encounter Time: 09:00 Subjective: no overnight events. this morning, complaining of mild abdominal pain and distention. otherwise no complaints. - Objective Vital Signs & Weight: Vital Signs (12 hours) Temp Pulse Resp BP Pulse Ox 06/19/20 19:39 100 06/19/20 19:15 98.5 F 104 H 16 94/50 L 95 06/19/20 15:25 99.3 F 99 22 H 112/58 L 93 L 06/19/20 11:20 97.8 F 92 20 110/58 L 95 Weight Admit Weight 199 lb Weight 190 lb I&O: 06/18/20 06/19/20 06/20/20 06:59 06:59 06:59 Intake Total 1600 1650 600 Output Total 10 0 400 Balance 1590 1650 200 Result Diagrams: 06/19/20 04:16 06/19/20 04:16 Additional Labs: Accuchecks 06/19/20 20:38 POC Glucose 171 H Hospitalist ROS - Review of Systems Constitutional: denies: chills, sweats Respiratory: denies: cough, shortness of breath Cardiovascular: denies: chest pain Gastrointestinal: reports: abdominal pain. denies: diarrhea, constipation, melena, hematochezia - Medication Medications: Active Medications Generic Name Dose Route Start Last Admin Trade Name Freq PRN Reason Stop Dose Admin Hydrocodone Bitart/Acetaminophen 1 tab 06/17/20 09:00 06/18/20 10:35 [place] 5/325 PO 1 tab Q4H PRN Administration Mild-Moderate Pain (1-5) Aspirin 81 mg 06/17/20 09:00 06/17/20 09:50 Aspirin Chewable PO 81 mg DAILY SHANNON Administration Heparin Sodium (Porcine) 5,000 units 06/17/20 09:00 06/19/20 20:03 Heparin SC 5,000 units TID SHANNON Administration Piperacillin Sod/Tazobactam 100 mls @ 200 mls/hr 06/18/20 21:00 06/19/20 20:03 Sod 2.25 gm/ Sodium Chloride IVPB 100 mls Q12H SHANNON Administration Insulin Human Lispro 0 units 06/17/20 00:19 06/17/20 22:52 Humalog SC 3 unit .MILD SLIDING SCALE PRN Administration Mild Correctional Scale Morphine Sulfate 2 mg 06/17/20 00:17 06/19/20 08:45 Morphine SLOW IVP 2 mg Q4H PRN Administration Severe Pain (7-10) Rosuvastatin Calcium 20 mg 06/17/20 09:00 06/19/20 09:25 Crestor PO 20 mg DAILY SHANNON Administration - Exam General Appearance: NAD, awake alert Eye: PERRL, anicteric sclera Neck: no JVD Heart: RRR, no murmur, no gallops, no rubs Gastrointestinal: soft, non-tender, normal bowel sounds Gastrointestinal - other findings: midly distended Extremities - other findings: LLE edema > RLE edema Psychiatric: normal affect, normal behavior Hosp A/P - Plan #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 possible metasteses; onc and GI onboard, appreciated recs #radiation cystitis #bilateral hydronephrosis and hydroureter possibly due to metastatic occlusion refusing chery after long discussion mediated by interpreter and translator patient indecisive regarding PCNL as well; Urology onboard, appreciated recs held aspirin pending possible PCNL (Tuesday) after discussion w/ Katie urinalysis contaminated; will continue ABx pending possible procedure #CAD s/p CABG hold aspirin pending procedure #ESRD HD per nephrology; aprreciated nephrology recs Full code Palliative team had long converstation with patient and family and provided them several options with final goal being returning to [place] but no decision at this point. Pending additional conversation.
--- NOTE | 2020-06-20 00:03 | PRG ---
DATE OF SERVICE: 06/19/2020 SUBJECTIVE: Mr. Palafox has no abdominal pain. No nausea or vomiting. OBJECTIVE: VITAL SIGNS: Temperature 98.5, pulse 104, blood pressure 95/53. GENERAL: He is in no acute distress. Awake and alert. LUNGS: Clear to auscultation bilaterally. HEART: Regular rate and rhythm without murmur. ABDOMEN: Mildly distended. Bowel sounds present. No tenderness. EXTREMITIES: No lower extremity edema. IMPRESSION: Rectal cancer with obstructive-type symptoms. Prior stool studies are negative for Clostridium difficile and negative for lactoferrin. He has also had some urinary findings with possible obstruction by CT. Overall, this most likely represents progression of his cancer. He is elected against proceeding with surgical treatment. He is heading in the direction of hospice care at this point. Job ID: [id number]
[2020-06-20 05:12] LABS: Albumin 2.7 g/dL (3.4-4.8); Anion Gap 19 mmol/L (10-20); BUN (Urea Nitrogen) 27 mg/dL (8.4-25.7); BUN/Creatinine Ratio 4.94; Calc. Creatinine Clearance 15 mL/min (70-130); Calcium 8.2 mg/dL (7.8-10.44); Carbon Dioxide 23 mmol/L (23-31); Chloride 99 mmol/L (98-107); Estimated GFR-MDRD 10; Glucose 110 mg/dL (83-110); Phosphorus 4.2 mg/dL (2.3-4.7); Potassium 4.2 mmol/L (3.5-5.1); Sodium 137 mmol/L (136-145)
[2020-06-20] MEDS ORDERED: Heparin 10,000 UNITS/ 10 ML VIAL ONE (09:19)
--- NOTE | 2020-06-20 12:22 | PDOC.NEPPN ---
- Subjective Encounter Date: 06/20/20 Subjective: Seen in follow up for management of AAYUSH on CKD requiring HD. Admitted due to abdominal pain associated with diarrhea and hematochezia. Feeling better. Still having intermittent abdominal pain but intensity has improved . Frequent loose stools also has improved. Patient wants to go home. No fever. Last HD was on 06/18/2020. - Objective Vital Signs & Weight: Vital Signs (12 hours) Temp Pulse Resp BP Pulse Ox 06/20/20 04:00 98.0 F 98 12 133/66 97 Weight Admit Weight 199 lb Weight 191 lb 3.2 oz I&O: 06/19/20 06/20/20 06/21/20 06:59 06:59 06:59 Intake Total 1650 850 Output Total 0 400 Balance 1650 450 Result Diagrams: 06/19/20 04:16 06/20/20 04:01 Additional Labs: Accuchecks 06/20/20 06/19/20 03:35 20:38 POC Glucose 112 H 171 H Nephrology ROS - Medication Medications: Active Medications Generic Name Dose Route Start Last Admin Trade Name Freq PRN Reason Stop Dose Admin Hydrocodone Bitart/Acetaminophen 1 tab 06/17/20 09:00 06/18/20 10:35 [place] 5/325 PO 1 tab Q4H PRN Administration Mild-Moderate Pain (1-5) Aspirin 81 mg 06/17/20 09:00 06/17/20 09:50 Aspirin Chewable 81 Mg Tab PO 81 mg DAILY SHANNON Administration Heparin Sodium (Porcine) 5,000 units 06/17/20 09:00 06/19/20 20:03 Heparin 5,000 Units/Ml Vial SC 5,000 units TID SHANNON Administration Piperacillin Sod/Tazobactam 100 mls @ 200 mls/hr 06/18/20 21:00 06/19/20 20:03 Sod 2.25 gm/ Sodium Chloride IVPB 100 mls Q12H SHANNON Administration Insulin Human Lispro 0 units 06/17/20 00:19 06/17/20 22:52 Humalog SC 3 unit .MILD SLIDING SCALE PRN Administration Mild Correctional Scale Morphine Sulfate 2 mg 06/17/20 00:17 06/19/20 08:45 Morphine SLOW IVP 2 mg Q4H PRN Administration Severe Pain (7-10) Rosuvastatin Calcium 20 mg 06/17/20 09:00 06/19/20 09:25 Crestor PO 20 mg DAILY SHANNON Administration - Exam General Appearance: awake alert Eye: anicteric sclera ENT: normocephalic atraumatic, moist mucosa Neck: symmetric Respiratory: no wheezes, no rales, no ronchi, normal chest expansion, no tachypnea Respiratory - other findings: Fair entry bilaterally with few transmitted sound Cardiovascular: RRR Gastrointestinal: soft, non-tender, non-distended, normal bowel sounds Extremities - other findings: Moderate edema of left leg. No erythema appreciated Neurological: CN's grossly intact, no new deficit PSYCH: A&O x 3 Nephrology Results - Labs Result Diagrams: 06/19/20 04:16 06/20/20 04:01 Lab results: WBC 10.0 thou/uL (4.8-10.8) 06/19/20 04:16 Hgb 8.9 g/dL (14.0-18.0) L 06/19/20 04:16 Hct 27.5 % (42.0-52.0) L 06/19/20 04:16 MCV 88.7 fL (78.0-98.0) 06/19/20 04:16 Plt Count 338 thou/uL (130-400) 06/19/20 04:16 Neutrophils % 76.0 % (42.0-75.0) H 06/19/20 04:16 Sodium 137 mmol/L (136-145) 06/20/20 04:01 Potassium 4.2 mmol/L (3.5-5.1) 06/20/20 04:01 Chloride 99 mmol/L (98-107) 06/20/20 04:01 Carbon Dioxide 23 mmol/L (23-31) 06/20/20 04:01 BUN 27 mg/dL (8.4-25.7) H 06/20/20 04:01 Creatinine 5.47 mg/dL (0.7-1.3) H 06/20/20 04:01 Glucose 110 mg/dL (83-110) 06/20/20 04:01 Lactic Acid 1.1 mmol/L (0.5-2.2) 06/16/20 17:21 Calcium 8.2 mg/dL (7.8-10.44) 06/20/20 04:01 Total Bilirubin 0.5 mg/dL (0.2-1.2) 06/16/20 15:38 AST 14 U/L (5-34) 06/16/20 15:38 ALT 9 U/L (8-55) 06/16/20 15:38 Alkaline Phosphatase 93 U/L (40-110) 06/16/20 15:38 CK-MB (CK-2) 0.8 ng/mL (0-6.6) 06/16/20 15:38 Troponin I 0.060 ng/mL (< 0.028) H 06/16/20 15:38 Serum Total Protein 6.0 g/dL (5.8-8.1) 06/16/20 15:38 Albumin 2.7 g/dL (3.4-4.8) L 06/20/20 04:01 Lipase 5 U/L (8-78) L 06/16/20 15:38 Urine Ketones Negative mg/dL (Negative) 06/16/20 16:46 Urine Blood 1+ (Negative) A 06/16/20 16:46 Urine Nitrite Negative (Negative) 06/16/20 16:46 Ur Leukocyte Esterase 25 Bev/uL (Negative) A 06/16/20 16:46 Urine RBC Greater than 50 HPF (0-3) A 06/16/20 16:46 Urine WBC Greater than 50 HPF (0-3) A 06/16/20 16:46 Ur Squamous Epith Cells 4-6 HPF (0-3) A 06/16/20 16:46 Urine Bacteria 4+ HPF (None Seen) A 06/16/20 16:46 Nephrology AP PN (1) Acute renal failure due to tubular necrosis Code(s): N17.0 - ACUTE KIDNEY FAILURE WITH TUBULAR NECROSIS Status: Acute (2) Hematochezia Code(s): K92.1 - MELENA Status: Acute (3) Edema Code(s): R60.9 - EDEMA, UNSPECIFIED Status: Acute (4) Abdominal ascites Code(s): R18.8 - OTHER ASCITES Status: Acute (5) Ischemic cardiomyopathy Code(s): I25.5 - ISCHEMIC CARDIOMYOPATHY Status: Acute (6) Anemia in chronic kidney disease (CKD) Code(s): N18.9 - CHRONIC KIDNEY DISEASE, UNSPECIFIED; D63.1 - ANEMIA IN CHRONIC KIDNEY DISEASE Status: Acute (7) Bilateral hydronephrosis Code(s): N13.30 - UNSPECIFIED HYDRONEPHROSIS Status: Acute (8) UTI (urinary tract infection) Status: Acute Qualifiers: Urinary tract infection type: acute cystitis Hematuria presence: without hematuria Qualified Code(s): N30.00 - Acute cystitis without hematuria (9) DM type 2 (diabetes mellitus, type 2) Status: Chronic - Plan Acute renal failure due to ATN on HD. Contribution of newly found bilateral hydronephrosis is unclear. No evidence of renal recovery as yet. Creat is trending up between HD Bilateral hydronephrosis Anasarca/ascitis.Improving with HD Ischemic cardiomyopathy CAD s/p recent CABG Colon cancer. Bladder wall thickening.Most likely due to radiation cystitis. Low blood pressures. Improved. Dysuria: Most likely related to bladder abnormality +/- UTI Abdominal Pain. Most likely related diverticulosis/possible diverticulitis and colon cancer. Improved UTI Presumed Diverticulitis/Colitis. Anemia of chronic illness and CKD. Possible Bladder outlet obstruction Discussion/Plan We will dialyze patient today with UF as tolerated. Continue supportive care. Can be discharged to continue outpatient HD.
--- NOTE | 2020-06-20 12:31 | PDOC.BPN ---
- Brief Progress Note Encounter Date: 06/20/20 Hemodialysis Procedure note. Seen during Hemodialysis today. BP 113/61. Blood pressure drop earlier and UF goal was decreased with improvement. See EMR for Hemodialysis order.
[2020-06-20] MEDS: Aspirin Chewable 81 MG TAB PO SCH (12:35)
[2020-06-20] MEDS: Piperacillin/Tazobactam 2.25 GM in Sodium Chloride 0.9% 100 ML IVPB SCH (12:35)
[2020-06-20] MEDS: Rosuvastatin 20 MG TAB PO SCH (12:35)
[2020-06-20 12:46] VITALS: BMI 29.9
--- NOTE | 2020-06-20 14:42 | PRG ---
DATE OF SERVICE: 06/20/2020 SUBJECTIVE: The patient has no acute complaints this morning. He is on dialysis now. OBJECTIVE: VITAL SIGNS: Temperature 98.0, pulse 98, blood pressure 133/66. GENERAL: He is awake and alert. LUNGS: Clear to auscultation bilaterally. HEART: Regular rate and rhythm without murmur. ABDOMEN: Soft, nontender, and nondistended. Bowel sounds are present. EXTREMITIES: 1+ lower extremity edema. LABORATORY DATA: His creatinine is 5.47. IMPRESSION: 1. Rectal cancer. He has had mucoid stools with incomplete bowel movements and some possible urinary obstructive process potentially related to the rectal cancer. He has undergone radiation, but is electing against surgical intervention. 2. End-stage renal disease, on hemodialysis. RECOMMENDATIONS: 1. He is considering hospice care, and Primary Service is having discussions with the family about options related to this. 2. I will sign off for now. Dr. Sierra is covering the weekend. Please call if needed. Job ID: [id number]
[2020-06-20] MEDS: Heparin 5,000 UNITS/ML VIAL SC SCH (16:59)
[2020-06-20 18:07] VITALS: BP 110/52; TEMP 98.4
--- NOTE | 2020-06-21 02:54 | DIS ---
DATE OF ADMISSION: 06/16/2020 DATE OF DISCHARGE: 06/20/2020 HOSPITAL COURSE: Mr. 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 He was diagnosed with bilateral hydroureteronephrosis and likely metastatic retroperitoneal spread. Multiple teams including Gastroenterology, Oncology, Urology, and the Palliative Care team were consulted. Considering the patient's significant comorbidities and recent significant comorbidities, deconditioning, and recent deterioration, and after the patient's refusal to do percutaneous nephrostomy, it was agreed in concordance with the family that the best course at this point would be hospice care. The patient and the family decided to do home hospice pending transportation to [place], there the patient could be with his family. Prior to discharge, the patient was informed in the presence of his family and with the aid of an lang interpreter that he may not survive the trip to [place]. The patient and the family were agreeable to discharge to hospice with a goal of eventual transportation to [place]. On the day of discharge, the patient was hemodynamically stable and abdominal pain was significantly improved. PHYSICAL EXAMINATION: VITAL SIGNS: Blood pressure 110/52, pulse 100, respiratory rate 16, oxygen saturation 94% on room air, temperature 98.4. GENERAL APPEARANCE: Lying comfortably in bed. Awake and alert. HEENT: Normocephalic, atraumatic. Poor dentition. PERRL and anicteric sclerae. HEART: Regular rate and rhythm. No murmurs, gallops, or rubs. LUNGS: Clear to auscultation bilaterally. No wheezing, rales or rhonchi. GI: Soft, nontender, mildly distended, shifting dullness. EXTREMITIES: Left lower extremity edema greater than right lower extremity edema up to knee level (Doppler ultrasound of the left lower extremity was negative for DVT). PSYCHIATRIC: Flat affect. Normal behavior. Alert and oriented x3. MEDICATION LIST: New medications: 1. Imodium 2 mg p.o. p.r.n. diarrhea or loose stools up to 16mg in 24 hours. Continued medications: 1. Aspirin. 2. Cable. 3. Coreg. 4. Insulin glargine. Discontinued medication: Rosuvastatin. Modified medications: No modified medications. Job ID: [id number] MTDD
== END 2020-06-20 18:50 | disposition home or self-care (01) | DRG 374 ==
LOC: ERS 15:03 → 2NO 18:02
PROVIDERS: ADMIT Student in an Organized Health Care Education/Training Program; ATTEND Student in an Organized Health Care Education/Training Program
PROC: 5A1D70Z Performance of Urinary Filtration, Intermittent, Less than 6 Hours Per Day (ICD-10-PCS; principal; 2020-06-18)
PROC: 5A1D70Z Performance of Urinary Filtration, Intermittent, Less than 6 Hours Per Day (ICD-10-PCS; 2020-06-20)
DX: C19 Malignant neoplasm of rectosigmoid junction (principal); N18.6 End stage renal disease; N17.0 Acute kidney failure with tubular necrosis; I50.23 Acute on chronic systolic (congestive) heart failure; C78.6 Secondary malignant neoplasm of retroperitoneum and peritoneum; K92.1 Melena; R18.8 Other ascites; I12.0 Hypertensive chronic kidney disease with stage 5 chronic kidney disease or end stage renal disease; N13.6 Pyonephrosis; N30.40 Irradiation cystitis without hematuria; I13.2 Hypertensive heart and chronic kidney disease with heart failure and with stage 5 chronic kidney disease, or end stage renal disease; C77.2 Secondary and unspecified malignant neoplasm of intra-abdominal lymph nodes; C78.89 Secondary malignant neoplasm of other digestive organs; K57.90 Diverticulosis of intestine, part unspecified, without perforation or abscess without bleeding; I25.5 Ischemic cardiomyopathy; D63.1 Anemia in chronic kidney disease; Z51.5 Encounter for palliative care; I25.10 Atherosclerotic heart disease of native coronary artery without angina pectoris; Z20.828 Contact with and (suspected) exposure to other viral communicable diseases; E78.5 Hyperlipidemia, unspecified; Z95.1 Presence of aortocoronary bypass graft; Z99.2 Dependence on renal dialysis; I25.2 Old myocardial infarction; Z79.4 Long term (current) use of insulin; Z87.442 Personal history of urinary calculi; Z85.038 Personal history of other malignant neoplasm of large intestine; Z79.82 Long term (current) use of aspirin; Z79.899 Other long term (current) drug therapy; Z92.3 Personal history of irradiation; Z92.21 Personal history of antineoplastic chemotherapy
CPT/HCPCS: 36415; 36416; 74177; 80048; 80053; 80069; 81003; 81015; 82274; 82553; 83605; 83630; 83690; 83735; 84484; 85025; 85610; 85730; 87040; 87045; 87046; 87086; 87324; 87328; 87329; 87427; 87449; 87635; 87798; 90935; 93005; 96365; 96375; G0257; J1644; J2270; J2543; J3490; P9047; U0003